=== PATIENT | male | born 1955 | race Caucasian/White ===

== ENCOUNTER 2017-08-23 13:03 | Emergency (ER) | payer BC ==
[2017-08-23] MEDS ORDERED: ONDANSETRON 4 MG/2 ML VIAL ONE (13:27)
[2017-08-23] MEDS ORDERED: NA CHLORIDE 0.9% 1,000 ML ONE (13:27)
[2017-08-23 13:49] LABS: Absolute Lymphocytes (CBC) 1.3 K/uL (0.7-4.9); Absolute Monocytes 0.4 K/uL (0.1-1.3); Absolute Neutrophil 9.6 K/uL (1.8-8.0); Basophils % 0.7 % (0-1.3); Eosinophils % 0.1 % (0-4.4); Hematocrit 39.8 % (39.6-49.0); Lymphocytes % 11.3 % (15.3-44.8); MCH 28.7 pg (27.0-35.0); MCV 86.4 fL (80-100); MPV 9.1 fL (7.6-11.3); Monocytes % 3.6 % (3.3-12.3); RBC Red Blood Cell Count 4.61 M/uL (4.33-5.43)
[2017-08-23 14:12] LABS: Bicarbonate 25 mEq/L (21-31); Glucose Level 143 mg/dL (65-120); Lipase 14 U/L (22-51); Potassium 3.9 mEq/L (3.6-5.0); Sodium Level 133 mEq/L (135-145)
[2017-08-23 14:18] LABS: ALT/SGPT 22 IU/L (10-60); AST/SGOT 20 IU/L (10-42); Albumin 4.1 g/dL (3.2-5.5); Alkaline Phosphatase 107 IU/L (42-121); BUN Blood Urea Nitrogen 12 mg/dL (6-20); Bilirubin Direct 0.1 mg/dL (0-0.2); Bilirubin Total 0.7 mg/dL (0.3-1.2); Protein, Total 7.7 g/dL (6.0-8.3)
--- NOTE | 2017-08-23 15:18 | RAD REPORT ---
EXAM DESCRIPTION: CT - Abdomen Pelvis W Contrast - 08/23/2017 2:51 pm CLINICAL HISTORY: Abdominal pain with vomiting COMPARISON: 2015 TECHNIQUE: Computed axial tomography of the abdomen pelvis was obtained. 100 cc Isovue-300 was admin istered intravenously. Oral contrast was not requested which limits evaluation of bowel. All CT scans are performed using dose optimization technique as appropriate and may include automated exposure control or mA/KV adjustment according to patient size. FINDINGS: The liver, spleen, pancreas, adrenal and kidneys appear unremarkable. There is no evidence of diverticulitis. The appendix is normal. The prostate gland is markedly enlarged. 4 centimeter area of narrowing involves the transverse colon. A gallstone is present. The gallbladder wall is not thickened. Spondylosis involves lumbar spine resulting in spinal stenosis. A small hiatal hernia is present IMPRESSION: 4 centimeter area of narrowing involving the transverse colon may be secondary to incomp lete distention or a mass. Colonoscopy is recommended. Marked enlargement of the prostate gland.
--- NOTE | 2017-08-23 15:44 | EDPHYS ---
Physician Documentation [facility] Name: Mahin Alonzo Age: 62 yrs Sex: Male : 1955 Arrival Date: 08/23/2017 Time: 13:04 Bed 30 Private MD: ED Physician Brian Momin HPI: 08/23 14:00 This 62 yrs old Male presents to ER via Ambulatory with complaints of pm1 Vomiting. 14:00 The patient presents to the emergency department with nausea, vomiting, 3 times since pm1 the onset of symptoms. Onset: The symptoms/episode began/occurred Two hours prior to arrival. Possible causes: sick contacts, by co-worker(s). The symptoms are aggravated by food , The symptoms are alleviated by nothing. Associated signs and symptoms: Pertinent negatives: abdominal pain, diarrhea, dysuria, fever. The patient has not recently seen a physician. Patient with co-worker exposure who was having vomiting and diarrhea this week. Historical: - Allergies: 13:23 Sulfa (Sulfonamide Antibiotics); tl3 - Home Meds: 13:23 tramadol 50 mg Oral tab [Active]; omeprazole 20 mg Oral cpDR 1 cap once daily [Active]; tl3 Coreg CR 80 mg oral CM24 [Active]; Chinyere Chewable Aspirin 81 mg oral chew 1 tab once daily [Active]; doxazosin oral 20 mg oral once daily [Active]; simvastatin 20 mg Oral tab [Active]; valsartan 320 mg oral tab [Active]; clonidine HCl 0.1 mg Oral tab 1 tab as needed [Active]; - PMHx: 13:23 Hypertension; Hyperlipidemia; Gastric Reflux; tl3 - PSHx: 13:23 COLON RESECTION FOR DIVERTICULITIS; tl3 - Immunization history:: Adult Immunizations up to date. ROS: 14:00 Constitutional: Negative for fever, chills, and weight loss, Eyes: Negative for injury, pm1 pain, redness, and discharge, ENT: Negative for injury, pain, and discharge, Neck: Negative for injury, pain, and swelling, Cardiovascular: Negative for chest pain, palpitations, and edema, Respiratory: Negative for shortness of breath, cough, wheezing, and pleuritic chest pain. 14:00 Back: Negative for injury and pain, : Negative for injury, bleeding, discharge, and swelling, MS/Extremity: Negative for injury and deformity, Skin: Negative for injury, rash, and discoloration, Neuro: Negative for headache, weakness, numbness, tingling, and seizure. 14:00 Abdomen/GI: Positive for nausea and vomiting, abdominal cramps, Negative for abdominal pain, diarrhea. Exam: 14:00 Constitutional: This is a well developed, well nourished patient who is awake, alert, pm1 and in no acute distress. Head/Face: Normocephalic, atraumatic. Eyes: Pupils equal round and reactive to light, extra-ocular motions intact. Lids and lashes normal. Conjunctiva and sclera are non-icteric and not injected. Cornea within normal limits. Periorbital areas with no swelling, redness, or edema. ENT: Nares patent. No nasal discharge, no septal abnormalities noted. Tympanic membranes are normal and external auditory canals are clear. Oropharynx with no redness, swelling, or masses, exudates, or evidence of obstruction, uvula midline. Mucous membranes moist. Neck: Trachea midline, no thyromegaly or masses palpated, and no cervical lymphadenopathy. Supple, full range of motion without nuchal rigidity, or vertebral point tenderness. No Meningismus. Chest/axilla: Normal chest wall appearance and motion. Nontender with no deformity. No lesions are appreciated. Cardiovascular: Regular rate and rhythm with a normal S1 and S2. No gallops, murmurs, or rubs. No pulse deficits. Respiratory: Lungs have equal breath sounds bilaterally, clear to auscultation and percussion. No rales, rhonchi or wheezes noted. No increased work of breathing, no retractions or nasal flaring. Abdomen/GI: Soft, non-tender, with normal bowel sounds. No distension or tympany. No guarding or rebound. No evidence of tenderness throughout. Back: No spinal tenderness. No costovertebral tenderness. Full range of motion. Skin: Warm, dry with normal turgor. Normal color with no rashes, no lesions, and no evidence of cellulitis. MS/ Extremity: Pulses equal, no cyanosis. Neurovascular intact. Full, normal range of motion. Vital Signs: 13:13 BP 178 / 99; Pulse 70; Resp 20 S; Temp 98.2(TE); Pulse Ox 98% on R/A; aa5 14:20 BP 154 / 90; Pulse 98; Resp 16; Pulse Ox 100% on R/A; tl3 15:49 BP 159 / 88; Pulse 87; Resp 18; Pulse Ox 100% on R/A; tl3 MDM: 13:14 Patient medically screened. pm1 15:39 Data reviewed: vital signs. Data interpreted: Pulse oximetry: on room air is 98 %. pm1 Interpretation: normal. Counseling: I had a detailed discussion with the patient and/or guardian regarding: the historical points, exam findings, and any diagnostic results supporting the discharge/admit diagnosis, lab results, radiology results, the need for outpatient follow up, for definitive care, a senior financial consultant, Colonscopy, to return to the emergency department if symptoms worsen or persist or if there are any questions or concerns that arise at home. 15:39 ED course: patient without any nausea or vomiting in the emergency department. Patient pm1 happy with care and ready to go home. Patient offered additional pain medication if possibility for nausea and vomiting from tramadol is present. Patient refused Tylenol #3 and reports that he will just take ibuprofen as needed for pain. . 08/23 13:23 Order name: Basic Metabolic Panel; Complete Time: 14:20 pm1 08/23 13:23 Order name: CBC with Diff; Complete Time: 14:11 pm1 08/23 13:23 Order name: Hepatic Function; Complete Time: 14:20 pm1 08/23 13:23 Order name: Lipase; Complete Time: 14:20 pm1 08/23 13:45 Order name: CT Abd/Pelvis - W/Contrast: IV contrast only; Complete Time: 15:29 pm1 08/23 13:23 Order name: IV Saline Lock; Complete Time: 13:43 pm1 08/23 13:23 Order name: Labs collected and sent; Complete Time: 13:43 pm1 08/23 13:23 Order name: Urine Dipstick-Ancillary (obtain specimen); Complete Time: 15:47 pm1 Administered Medications: 13:42 Drug: Zofran 4 mg Route: IVP; Infused Over: 3 mins; Site: left antecubital; tl3 14:20 Follow up: Response: No adverse reaction; Nausea is decreased tl3 13:42 Drug: NS 0.9% 1000 ml Route: IV; Rate: 1000 ml; Site: left antecubital; Delivery: tl3 Primary tubing; 14:40 Follow up: IV Status: Infusion continued; IV Intake: 1000ml tl3 Disposition: 18:11 Co-signature as Attending Physician, Brian Momin MD. rn Disposition: 08/23/17 15:43 Discharged to Home. Impression: Nausea and vomiting. - Condition is Stable. - Discharge Instructions: Nausea and Vomiting, Viral Gastroenteritis. - Prescriptions for Zofran ODT 4 mg Oral tablet,disintegrating - place 1 tablet by TRANSLINGUAL route every 8 hours As needed; 10 tablet. - Medication Reconciliation Form, Thank You Letter form. - Follow up: Emergency Department; When: As needed; Reason: Worsening of condition. Follow up: Russell Baig MD; When: 2 - 3 days; Reason: Recheck today's complaints, Continuance of care, Re-evaluation by your physician, colonscopy. - Problem is new. - Symptoms have improved. Signatures: Dispatcher [employer] EDMS Brian Momin MD MD rn Speedy Oneil, PEST MANAGEMENT SUPERVISOR PEST MANAGEMENT SUPERVISOR pm1 Mary Gustafson RN RN tl3 Corrections: (The following items were deleted from the chart) 16:17 15:43 08/23/2017 15:43 Discharged to Home. Impression: Nausea and vomiting. Condition tl3 is Stable. Forms are Medication Reconciliation Form, Thank You Letter, Antibiotic Education, Prescription Opioid Use. Follow up: Emergency Department; When: As needed; Reason: Worsening of condition. Follow up: Russell Baig; When: 2 - 3 days; Reason: Recheck today's complaints, Continuance of care, Re-evaluation by your physician, colonscopy. Problem is new. Symptoms have improved. pm1
--- NOTE | 2017-08-23 15:44 | ER ---
Nurse's Notes [facility] Name: Mahin Alonzo Age: 62 yrs Sex: Male : 1955 Arrival Date: 08/23/2017 Time: 13:04 Bed 30 Private MD: Diagnosis: Nausea and vomiting Presentation: 08/23 13:12 Presenting complaint: Patient states: "I've been vomiting all day". Pt denies abd pain. aa5 Pt states "I just took my first dose of tramadol last night for my broken foot". Pt appears pale. 13:12 Transition of care: patient was not received from another setting of care. Onset of aa5 symptoms was August 23, 2017. Initial Sepsis Screen: Does the patient meet any 2 criteria? No. Patient's initial sepsis screen is negative. Does the patient have a suspected source of infection? No. Patient's initial sepsis screen is negative. Care prior to arrival: None. 13:12 Method Of Arrival: Ambulatory aa5 13:12 Acuity: SAMEER 3 aa5 Historical: - Allergies: 13:23 Sulfa (Sulfonamide Antibiotics); tl3 - Home Meds: 13:23 tramadol 50 mg Oral tab [Active]; omeprazole 20 mg Oral cpDR 1 cap once daily [Active]; tl3 Coreg CR 80 mg oral CM24 [Active]; Chinyere Chewable Aspirin 81 mg oral chew 1 tab once daily [Active]; doxazosin oral 20 mg oral once daily [Active]; simvastatin 20 mg Oral tab [Active]; valsartan 320 mg oral tab [Active]; clonidine HCl 0.1 mg Oral tab 1 tab as needed [Active]; - PMHx: 13:23 Hypertension; Hyperlipidemia; Gastric Reflux; tl3 - PSHx: 13:23 COLON RESECTION FOR DIVERTICULITIS; tl3 - Immunization history:: Adult Immunizations up to date. Screenin:23 Abuse screen: Denies threats or abuse. Nutritional screening: No deficits noted. tl3 Tuberculosis screening: No symptoms or risk factors identified. Fall Risk None identified. Assessment: 13:16 General: Appears uncomfortable, well groomed, well developed, well nourished, Behavior tl3 is calm, cooperative, appropriate for age. Pain: Denies pain. Neuro: No deficits noted. Level of Consciousness is awake, alert, obeys commands, Oriented to person, place, time, situation, Appropriate for age. Cardiovascular: Heart tones S1 S2 present Capillary refill < 3 seconds. Respiratory: Airway is patent Trachea midline Respiratory effort is even, unlabored, Respiratory pattern is regular, symmetrical, Breath sounds are clear bilaterally. GI: Abdomen is round Reports nausea, vomiting. : No signs and/or symptoms were reported regarding the genitourinary system. EENT: No signs and/or symptoms were reported regarding the EENT system. Derm: No signs and/or symptoms reported regarding the dermatologic system. Musculoskeletal: No signs and/or symptoms reported regarding the musculoskeletal system. 13:16 Reassessment: pt started taking Tramadol yesterday for a fx left foot, had second dose tl3 today on empty stomach and got nauseated and started vomting. 14:20 Reassessment: Patient appears in no apparent distress at this time. Patient and/or tl3 family updated on plan of care and expected duration. Pain level reassessed. Patient is alert, oriented x 3, equal unlabored respirations, skin warm/dry/pink. pt feeling better was able to sleep through IV fluid admin. Vital Signs: 13:13 BP 178 / 99; Pulse 70; Resp 20 S; Temp 98.2(TE); Pulse Ox 98% on R/A; aa5 14:20 BP 154 / 90; Pulse 98; Resp 16; Pulse Ox 100% on R/A; tl3 15:49 BP 159 / 88; Pulse 87; Resp 18; Pulse Ox 100% on R/A; tl3 ED Course: 13:04 Patient arrived in ED. sb2 13:13 Speedy Oneil NP is PHCP. pm1 13:13 Arm band placed on Patient placed in an exam room, on a stretcher. aa5 13:14 Brian Momin MD is Attending Physician. pm1 13:15 Triage completed. aa5 13:15 Mary Gustafson, STEPHANIE is Primary Nurse. tl3 13:23 Resting quietly. Awaiting ED provider evaluation. tl3 13:23 Patient has correct armband on for positive identification. Bed in low position. Call tl3 light in reach. Side rails up X 1. Adult w/ patient. Warm blanket given. 13:23 No provider procedures requiring assistance completed. tl3 14:[address] via wheelchair. cw1 14:52 CT Abd/Pelvis - W/Contrast: IV contrast only In Process Unspecified. EDMS 14:52 CT completed. Patient tolerated procedure well. Patient moved back from CT. bq 15:43 Russell Baig MD is Referral Physician. pm1 Administered Medications: 13:42 Drug: Zofran 4 mg Route: IVP; Infused Over: 3 mins; Site: left antecubital; tl3 14:20 Follow up: Response: No adverse reaction; Nausea is decreased tl3 13:42 Drug: NS 0.9% 1000 ml Route: IV; Rate: 1000 ml; Site: left antecubital; Delivery: tl3 Primary tubing; 14:40 Follow up: IV Status: Infusion continued; IV Intake: 1000ml tl3 Intake: 14:40 IV: 1000ml; Total: 1000ml. tl3 Outcome: 15:43 Discharge ordered by . pm1 16:17 Patient left the ED. tl3 Signatures: Dispatcher [employer] EDMS Estrella Marquez bq Debra Sheffield, RN RN aa5 Viki Pizano cw1 Speedy Oneil, JOHNNY METAL SPRAYER PROTECTIVE COATING pm1 Erin Young sb2 Mary Gustafson, RN RN tl3
[2017-08-23 16:21] VITALS: TEMP 98.2
[2017-08-23 16:22] VITALS: O2SAT 100
[2017-08-23 16:23] VITALS: BP 159/88
== END 2017-08-23 16:17 | disposition home or self-care (01) ==
LOC: ER 13:03
DX: R11.2 Nausea with vomiting, unspecified (principal); I10 Essential (primary) hypertension; E78.5 Hyperlipidemia, unspecified; K21.9 Gastro-esophageal reflux disease without esophagitis; Z88.2 Allergy status to sulfonamides; Z79.4 Long term (current) use of insulin
CPT/HCPCS: 36415; 74177; 80048; 80076; 83690; 85025; 96361; 96374; 99284; J2405; J7030; Q9967

== ENCOUNTER 2017-08-29 20:53 | Emergency (ER) | payer BC ==
--- OUTSIDE RECORDS SUMMARY | 2017-08-29 20:54 | XMS REPORT ---
:1955 Author [facility] Address [address] [place] [address] Care Team Providers Name Role Phone Unavailable Unavailable Unavailable Problems This patient has no known problems. Allergies, Adverse Reactions, Alerts This patient has no known allergies or adverse reactions. Medications This patient has no known medications. Results Test Description Test Time Test Comments Text Results Atomic Results Result Comments MRI PELVIS W/WO (PROSTATE) CLINICAL INDICATION: R97.20 Elevated prostate specific antigenMODALITY: Siemens Skyra 3.0 Rebeca MRITECHNIQUE: T2 sagittal and axial, T1 axial, T1 coronal fat sat, STIR, diffusion and dynamic contrast enhanced imaging are performed. Quantitative analysis is performed with 3JamaCAD. IV contrast is administered, 15.0 ml Multihance Dynamic post-contrast imaging with 3JamaCAD quantitative analysis are accomplished.[id number] MR DynaCADIMPRESSION:No suspicious focal lesions are targeted. No evidence of extra prostatic malignancy. Moderate BPH.PI-RADS 1: Most probably benign.FINDINGS:COMPARISON: NoneNormal regional marrow signal is observed. No lytic or blastic osseous metastatic lesions.No common iliac, internal iliac, external iliac, inguinal or suspicious blessing-prostatic lymph nodes.Regional bowel appears unremarkable. No mural or intraluminal bladder mass. Anterior abdominal wall and pelvic floor are unremarkable. No evidence of ascites.Estimated prostate volume is 91.71 ml. No suspicious focal lesions are targeted. Moderate hypertrophy of the transitional zone is noted, consistent with BPH.Seminal vesicles exhibit normal signal intensity. Neurovascular bundles are symmetric in appearance without definite tumor involvement. The prostate capsule is smooth in contour.
--- OUTSIDE RECORDS SUMMARY | 2017-08-29 20:54 | XMS REPORT | Clinical Summary ---
:1955 Author Organization [facility] Address [address] [place] [address] Care Team Providers Name Role Phone Marvin Velasquez MD Primary Care Provider Allergies Active Allergy Reactions Severity Noted Date Comments Sulfur GI Intolerance 04/25/2016 Nausea/ Vomiting Current Medications Prescription Sig. Disp. Refills Start Date End Date Status DEXILANT 60 mg capsule Take 60 mg by 4 02/26/2016 Active mouth daily. COREG CR 80 mg 24 hr Take 80 mg by 5 04/07/2016 Active capsule mouth daily. doxazosin (CARDURA) 4 Take 4 mg by 1 04/09/2016 Active MG tablet mouth daily. simvastatin (ZOCOR) 20 Take 20 mg by 1 04/09/2016 Active MG tablet mouth daily. Take 1/2 tablet by mouth daily valsartan (DIOVAN) 320 Take 320 mg by 6 04/01/2016 Active MG tablet mouth daily. aspirin (ECOTRIN) 81 MG Take 81 mg by Active enteric coated tablet mouth daily. clonIDINE (CATAPRES) Take 0.1 mg by Active 0.1 MG tablet mouth daily as needed for high blood pressure. vardenafil (STAXYN) 10 Take 10 mg by Active mg mouth daily as tablet,disintegrating needed. esomeprazole (NexIUM) Take 1 capsule 30 capsule 11 04/25/2016 04/25/2017 40 MG (40 mg total) capsuleIndications: by mouth daily Gastroesophageal reflux before disease without breakfast. esophagitis Active Problems Not on file Encounters Date Type Specialty Care Team Description 07/17/2017 Hospital Encounter Radiology Wilmar Young Renal calculus 07/17/2017 Transcribe Orders Access Wilmar Young Renal calculus ( Primary MD Dx) after 08/28/2016 Family History Medical History Relation Name Comments No Known Problems Brother No Known Problems Father No Known Problems Maternal Aunt No Known Problems Maternal Grandfather No Known Problems Maternal Grandmother No Known Problems Maternal Uncle No Known Problems Mother No Known Problems Paternal Aunt No Known Problems Paternal Grandfather No Known Problems Paternal Grandmother No Known Problems Paternal Uncle No Known Problems Sister Relation Name Status Comments Brother Father Maternal Aunt Maternal Grandfather Maternal Grandmother Maternal Uncle Mother Paternal Aunt Paternal Grandfather Paternal Grandmother Paternal Uncle Sister Social History Tobacco Use Types Packs/Day Years Used Date Never Smoker Alcohol Use Drinks/Week oz/Week Comments Yes socially Sex Assigned at Date Recorded Not on file Last Filed Vital Signs Not on file Plan of Treatment Health Maintenance Due Date Last Done Comments COLONOSCOPY 08/08/2003 SHINGRIX VACCINE (#1) 08/08/2003 ZOSTER VACCINE 2013 INFLUENZA VACCINE 11/19/2017 Results XR Kub Kidney Ureter Bladder (07/17/2017 1:09 PM) Specimen Performing Laboratory [facility] [address] [place] [address] Narrative EXAMINATION:XR KUB KIDNEY URETER BLADDER CLINICAL HISTORY:N20.0 Calculus of kidney, n20.0 COMPARISON:July 11, 2016 IMPRESSION: Surgical clips are noted in the left mid abdomen.There is nonspecific pattern of gas and stool throughout the colon.There is no sniffing of small bowel gas. There is no definite renal calculus. [facility]-[id number] Procedure Note Interface, Radiology Results Incoming - 07/17/2017 1:39 PM CDT EXAMINATION: XR KUB KIDNEY URETER BLADDER CLINICAL HISTORY: N20.0 Calculus of kidney, n20.0 COMPARISON: July 11, 2016 IMPRESSION: Surgical clips are noted in the left mid abdomen. There is nonspecific pattern of gas and stool throughout the colon. There is no sniffing of small bowel gas. There is no definite renal calculus. [facility]-[id number] after 08/28/2016 Insurance Payer Benefit Plan / Group Subscriber ID Type Phone Address BCBS BCBS CHOICE PPO/[employer] PPO xxxxxxxxxxxx PPO [phone] [phone]
[2017-08-29 21:19] LABS: Urine Blood NEGATIVE (NEG); Urine Glucose NEGATIVE (NEG); Urine Protein NEGATIVE (NEG); Urine Specific Gravity 1.015 (1.005-1.030)
[2017-08-29 21:52] LABS: Absolute Lymphocytes (CBC) 1.9 K/uL (0.7-4.9); Absolute Monocytes 1.6 K/uL (0.1-1.3); Absolute Neutrophil 13.6 K/uL (1.8-8.0); Basophils % 0.2 % (0-1.3); Eosinophils % 0.5 % (0-4.4); Lymphocytes % 11.2 % (15.3-44.8); MCH 29.3 pg (27.0-35.0); MCV 86.3 fL (80-100); Monocytes % 9.4 % (3.3-12.3)
[2017-08-29 21:57] LABS: Bicarbonate 25 mEq/L (21-31); Glucose Level 115 mg/dL (65-120); Lipase 16 U/L (22-51); Sodium Level 135 mEq/L (135-145)
[2017-08-29 22:03] LABS: ALT/SGPT 21 IU/L (10-60); AST/SGOT 18 IU/L (10-42); Albumin 4.2 g/dL (3.2-5.5); Alkaline Phosphatase 96 IU/L (42-121); Amylase Level 40 U/L (28-100); BUN Blood Urea Nitrogen 9 mg/dL (6-20); Bilirubin Direct 0.1 mg/dL (0-0.2); Bilirubin Total 0.7 mg/dL (0.3-1.2); Protein, Total 7.8 g/dL (6.0-8.3)
[2017-08-29 22:07] LABS: Urine Amorphous Sediment 1+ /HPF (NONE SEEN); Urine Bacteria <20 /HPF (NONE SEEN); Urine Culture Reflex Order NOT NEEDED; Urine RBC <5 /HPF (NONE SEEN)
--- NOTE | 2017-08-30 | ER ---
Nurse's Notes [facility] Name: Mahin Alonzo Age: 62 yrs Sex: Male : 1955 Arrival Date: 08/29/2017 Time: 20:55 Bed 16 Private MD: Nini Velasquez C Diagnosis: Cholelithiasis Presentation: 08/29 20:59 Presenting complaint: Patient states: Right flank pain for 2 days. Denies blood in aj urine. Transition of care: patient was not received from another setting of care. Onset of symptoms was August 27, 2017. Care prior to arrival: None. 20:59 Method Of Arrival: Ambulatory aj 20:59 Acuity: SAMEER 3 aj 21:12 Initial Sepsis Screen: Does the patient meet any 2 criteria? No. Patient's initial ao sepsis screen is negative. Does the patient have a suspected source of infection? Yes:. Triage Assessment: 21:01 General: Appears in no apparent distress. comfortable, Behavior is calm, cooperative, aj appropriate for age. Pain: Complains of pain in anterior aspect of right lateral abdomen and posterior aspect of right lateral abdomen Pain currently is 6 out of 10 on a pain scale. Neuro: Level of Consciousness is awake, alert, obeys commands, Oriented to person, place, time, situation. Respiratory: Airway is patent Respiratory effort is even, unlabored, Respiratory pattern is regular, symmetrical. : Reports pain in right flank(s). Derm: Skin is intact, is healthy with good turgor, Skin is pink, warm \T\ dry. normal. Historical: - Allergies: 21:01 Sulfa (Sulfonamide Antibiotics); aj - Home Meds: 21:01 Chinyere Chewable Aspirin 81 mg Oral chew 1 tab once daily [Active]; clonidine HCl 0.1 mg aj Oral tab 1 tab as needed [Active]; Coreg CR 80 mg Oral CM24 [Active]; doxazosin 20 mg Oral once daily [Active]; omeprazole 20 mg Oral cpDR 1 cap once daily [Active]; simvastatin 20 mg Oral tab [Active]; tramadol 50 mg Oral tab [Active]; valsartan 320 mg Oral tab [Active]; - PMHx: 21:01 Gastric Reflux; Hyperlipidemia; Hypertension; aj - PSHx: 21:01 COLON RESECTION FOR DIVERTICULITIS; aj - Immunization history:: Adult Immunizations up to date. - Social history:: Smoking status: Patient/guardian denies using tobacco. Screenin:12 Abuse screen: Denies threats or abuse. Denies injuries from another. Nutritional ao screening: No deficits noted. Tuberculosis screening: No symptoms or risk factors identified. Fall Risk None identified. Assessment: 21:09 General: Appears in no apparent distress. uncomfortable, Behavior is calm, cooperative, ao appropriate for age. Pain: Complains of pain in anterior aspect of right lateral abdomen and posterior aspect of right lateral abdomen Pain currently is 8 out of 10 on a pain scale. Quality of pain is described as burning, sharp, Pain began 1 day ago. Neuro: Level of Consciousness is awake, alert, obeys commands, Oriented to person, place, time, situation, Appropriate for age Moves all extremities. Speech is normal, Facial symmetry appears normal, Pupils are PERRLA. Cardiovascular: Heart tones S1 S2 Capillary refill < 3 seconds Patient's skin is warm and dry. Respiratory: Airway is patent Respiratory effort is even, unlabored, Respiratory pattern is regular, symmetrical, Breath sounds are clear bilaterally. GI: Abdomen is distended, Bowel sounds present X 4 quads. : No signs and/or symptoms were reported regarding the genitourinary system. EENT: No signs and/or symptoms were reported regarding the EENT system. Derm: Skin is intact, Skin is dry, Skin is normal, Skin temperature is warm. Musculoskeletal: No signs and/or symptoms reported regarding the musculoskeletal system. Amputation of Capillary refill < 3 seconds. 22:12 Reassessment: Patient appears in no apparent distress at this time. Patient and/or ao family updated on plan of care and expected duration. Pain level reassessed. Patient is alert, oriented x 3, equal unlabored respirations, skin warm/dry/pink. Waiting on lab results. 23:48 Reassessment: Patient appears in no apparent distress at this time. Patient and/or ao family updated on plan of care and expected duration. Pain level reassessed. Patient is alert, oriented x 3, equal unlabored respirations, skin warm/dry/pink. 0512 00:14 Reassessment: Received an verbal order to medicate patient with NS 500 Bolus and ao Toradol 30 IVP. Patient to be discharge after the saline is done. 00:56 Reassessment: Patient DC home ambulatory. Patient understand the POC and to follow up ao with Dr Velasquez. Patient denies pain at this time. Vital Signs: 08/29 21:01 BP 148 / 89; Pulse 91; Resp 16; Temp 98.9; Pulse Ox 96% on R/A; Weight 95.25 kg; Height aj 5 ft. 10 in. (177.80 cm); Pain 6/10; 22:12 BP 137 / 104; Pulse 81; Resp 16; Pulse Ox 98% on R/A; Pain 5/10; ao 23:48 BP 119 / 63; Pulse 74; Resp 18; Pulse Ox 96% on R/A; ao 21:01 Body Mass Index 30.13 (95.25 kg, 177.80 cm) ED Course: 20:55 Patient arrived in ED. am2 20:55 Nini Velasquez MD is Private Physician. am2 21:00 Triage completed. aj 21:01 Arm band placed on left wrist. Patient placed in an exam room. aj 21:03 Yoshi Pritchett MD is Attending Physician. tw4 21:05 Dex Perales RN is Primary Nurse. ao 21:14 Patient has correct armband on for positive identification. Pulse ox on. NIBP on. ao 21:38 Inserted saline lock: 20 gauge in left antecubital area, using aseptic technique. Blood eb collected. 22:[address] via stretcher. eh 22:29 CT completed. Patient tolerated procedure well. eh 22:31 Patient moved back from CT. eh 22:33 Abdomen In Process Unspecified. EDMS 23:58 Nini Velasquez MD is Referral Physician. tw4 08/30 00:55 No provider procedures requiring assistance completed. IV discontinued, intact, ao bleeding controlled, No redness/swelling at site. Pressure dressing applied. Administered Medications: 00:13 Drug: TORadol 30 mg Route: IVP; Site: left antecubital; ao 00:57 Follow up: Response: No adverse reaction; Pain is decreased ao 00:14 Drug: NS 0.9% 500 ml Route: IV; Rate: bolus; Site: left antecubital; ao 00:57 Follow up: IV Status: Completed infusion; IV Intake: 500ml ao Intake: 00:57 IV: 500ml; Total: 500ml. ao Outcome: 08/29 23:59 Discharge ordered by . tw4 08/30 00:55 Discharged to home ambulatory. ao Condition: stable Discharge instructions given to patient, Instructed on discharge instructions, follow up and referral plans. Demonstrated understanding of instructions, follow-up care, medications, Prescriptions given X 1. 00:56 Patient left the ED. ao Signatures: Dispatcher [employer] Catherine Kaur, RN RN Estuardo Del Valle Alex, RN RN ao Moreno, Amanda am2 Yoshi Pritchett MD MD tw4 [place]
--- NOTE | 2017-08-30 | EDPHYS ---
Physician Documentation [facility] Name: Mahin Alonzo Age: 62 yrs Sex: Male : 1955 Arrival Date: 08/29/2017 Time: 20:55 Bed 16 Private MD: Nini Velasquez C ED Physician Yoshi Pritchett Historical: - Allergies: 08/29 21:01 Sulfa (Sulfonamide Antibiotics); aj - Home Meds: 21:01 Chinyere Chewable Aspirin 81 mg Oral chew 1 tab once daily [Active]; clonidine HCl 0.1 mg aj Oral tab 1 tab as needed [Active]; Coreg CR 80 mg Oral CM24 [Active]; doxazosin 20 mg Oral once daily [Active]; omeprazole 20 mg Oral cpDR 1 cap once daily [Active]; simvastatin 20 mg Oral tab [Active]; tramadol 50 mg Oral tab [Active]; valsartan 320 mg Oral tab [Active]; - PMHx: 21:01 Gastric Reflux; Hyperlipidemia; Hypertension; aj - PSHx: 21:01 COLON RESECTION FOR DIVERTICULITIS; aj - Immunization history:: Adult Immunizations up to date. - Social history:: Smoking status: Patient/guardian denies using tobacco. Vital Signs: 21:01 BP 148 / 89; Pulse 91; Resp 16; Temp 98.9; Pulse Ox 96% on R/A; Weight 95.25 kg; Height aj 5 ft. 10 in. (177.80 cm); Pain 6/10; 22:12 BP 137 / 104; Pulse 81; Resp 16; Pulse Ox 98% on R/A; Pain 5/10; ao 23:48 BP 119 / 63; Pulse 74; Resp 18; Pulse Ox 96% on R/A; ao 21:01 Body Mass Index 30.13 (95.25 kg, 177.80 cm) MDM: 21:03 Patient medically screened. 08/29 21:13 Order name: Urine Dipstick--Ancillary (enter results); Complete Time: 22:13 08/29 23:58 Interpretation: Within normal limits. 08/29 21:20 Order name: Amylase, Serum; Complete Time: 22:13 rust 08/29 23:58 Interpretation: Within normal limits. 08/29 21:20 Order name: Basic Metabolic Panel; Complete Time: 22:13 rust 08/29 21:20 Order name: CBC with Diff; Complete Time: 22:13 tw4 08/29 23:57 Interpretation: Normal except: HGB 12.9; HCT 38.0; WBC 17.3; MOIRA% 78.7; LYM% 11.2; NEUT tw4 A 13.6; MNA 1.6. 08/29 21:20 Order name: Hepatic Function; Complete Time: 22:13 tw4 08/29 23:57 Interpretation: Normal except: GLOB 3.6. 08/29 21:20 Order name: Lipase; Complete Time: 22:13 tw4 08/29 21:20 Order name: Urine Microscopic Only; Complete Time: 22:13 tw4 08/29 21:20 Order name: IV Saline Lock; Complete Time: 21:39 tw4 08/29 21:20 Order name: Labs collected and sent; Complete Time: 21:39 tw4 08/29 22:22 Order name: Abdomen EDMS 08/29 21:20 Order name: Urine Dipstick-Ancillary (obtain specimen); Complete Time: 21:39 tw4 Administered Medications: 08/30 00:13 Drug: TORadol 30 mg Route: IVP; Site: left antecubital; ao 00:57 Follow up: Response: No adverse reaction; Pain is decreased ao 00:14 Drug: NS 0.9% 500 ml Route: IV; Rate: bolus; Site: left antecubital; ao 00:57 Follow up: IV Status: Completed infusion; IV Intake: 500ml ao Disposition: 08/29/17 23:59 Discharged to Home. Impression: Cholelithiasis. - Condition is Stable. - Discharge Instructions: Biliary Colic, Cholelithiasis, [id number]. - Prescriptions for Tylenol- Codeine #3 300-30 mg Oral Tablet - take 2 tablet by ORAL route every 6 hours As needed; 6 tablet. - Medication Reconciliation Form, Thank You Letter, Antibiotic Education, Prescription Opioid Use form. - Follow up: Nini Velasquez MD; When: As needed; Reason: Recheck today's complaints, Continuance of care, Re-evaluation by your physician. Follow up: Private Physician; When: As needed; Reason: Recheck today's complaints, Continuance of care, Re-evaluation by your physician. - Problem is new. - Symptoms have improved. Addendum: 09/09/2017 06:42 Addendum: Pt is a 62 year male that sates he has had right flank pain for 2 days. Pt t w4 states that pain is moderate. Pt denies nausea, vomiting fever or chills. Addendum: ROS" Gen: negative for fever, chills HEENT: negative for sore throat,ear pain CV: negative for chest pain, palpitations Resp: negative for SOB,MULLINS Abdomen: negative for nausea vomiting Ext: negative for edema, tenderness Back positive for flank pain : negative for dysuria, hematuria. Addendum: PE: General Well developed well nourished male in NAD HEENT:PERRLA, EOMI CV: RRR, nl S1, S2 Resp: CTAB, no resp rate no resp distress Abdomen: mild RUQ tenderness, nl BS Back: mild right CVA tenderness Ext: no edema, nontender Neuro: A\\T\\Ox 3 CN grossly intact, moves all four. Addendum: Ed course: CT negative for nephrolithiasis however reveal cholelithiasis with no evidence of cholecystitis . Signatures: Dispatcher [employer] [facility] Catherine Cummings RN RN aj Ortiz, Alex, RN RN ao Wadley, Terrence, MD MD tw4 Corrections: (The following items were deleted from the chart) 08/29 21:58 21:20 Creatinine for Radiology+C.LAB.BRZ ordered. [facility] 22:22 21:28 Abdomen Pelvis W/Wo Con+CT.RAD.BRZ ordered. [facility] 08/30 00:56 08/29 23:59 08/29/2017 23:59 Discharged to Home. Impression: Cholelithiasis. Condition ao is Stable. Forms are Medication Reconciliation Form, Thank You Letter, Antibiotic Education, Prescription Opioid Use. Follow up: A Velasquez; When: As needed; Reason: Recheck today's complaints, Continuance of care, Re-evaluation by your physician. Follow up: Private Physician; When: As needed; Reason: Recheck today's complaints, Continuance of care, Re-evaluation by your physician. Problem is new. Symptoms have improved. tw4
[2017-08-30] MEDS ORDERED: KETOROLAC 30 MG/ML INJ ONE (00:10)
[2017-08-30] MEDS ORDERED: NA CHLORIDE 0.9% 500 ML ONE (00:10)
[2017-08-30 01:00] VITALS: TEMP 98.9
[2017-08-30 01:02] VITALS: BP 119/63; O2SAT 96
--- NOTE | 2017-08-30 09:27 | RAD REPORT ---
EXAM DESCRIPTION: CT - Abdomen Pelvis W Contrast - 08/30/2017 6:47 am CLINICAL HISTORY: Abdominal pain, right flank pain, history of gastric reflux, history of partial co mariel resection for diverticulitis A preliminary written report was provided at the time of the study, and the report was reviewed prio r to final dictation. COMPARISON: CT study August 23, 2017; September 2015, March 2015 TECHNIQUE: Biphasic, helical CT imaging of the abdomen and pelvis was performed following 100 ml non -ionic IV contrast. No oral contrast administered. All CT scans are performed using dose optimization technique as appropriate and may include automated exposure control or mA/KV adjustment according to patient size. FINDINGS: No suspicious findings in the lung bases. The liver, spleen, and pancreas show no suspicious findings. A small 5 mm gallstone is identified. Ac tive gallbladder process is not suspected. No biliary tree dilatation. Symmetric renal function is seen with no hydronephrosis or suspicious renal mass. No pyelonephritis o r acute renal parenchymal process. Urinary bladder is mostly contracted. No bladder calculus seen. Prostate gland is enlarged overall. There is prominent lobulated contour at the prostate bladder inte rface. Pattern is more prominent than prior imaging. This may be a benign prostatic hypertrophy ; how ever, bladder base mass or prostate malignancy cannot be excluded on CT criteria. Correlation can be made with clinical symptoms, PSA values and any UA abnormalities. No dilated bowel loops or bowel wall thickening. No appendicitis findings. No free air, free fluid or inflammatory stranding. No hernia, mass or bulky lymphadenopathy. No adrenal abnormality. No suspicious bony findings. IMPRESSION: Single 5 mm gallstone is identified. Active gallbladder disease is doubtful. No appendicitis or acute GI process identifiable. No pyelonephritis, hydronephrosis or other acute kidney or ureter finding. Prostate gland is enlarged with a significant lobulated contour at the prostate-bladder interface. Th is is more prominent than seen on prior imaging. This may simply be benign prostatic hypertrophy ; h owever, prostate malignancy or bladder base mass cannot be excluded on CT criteria. Correlation is ne eded with any relevant urinary symptoms, abnormal PSA values or abnormal UA finding.
== END 2017-08-30 00:56 | disposition home or self-care (01) ==
LOC: ER 20:53
DX: K80.20 Calculus of gallbladder without cholecystitis without obstruction (principal); I10 Essential (primary) hypertension; E78.5 Hyperlipidemia, unspecified; Z79.82 Long term (current) use of aspirin; Z88.2 Allergy status to sulfonamides
CPT/HCPCS: 36415; 74177; 80048; 80076; 81003; 81015; 82150; 83690; 85025; 96361; 96374; 99284; Q9967

== ENCOUNTER 2017-09-01 17:39 | Inpatient (IN) | payer BC ==
--- OUTSIDE RECORDS SUMMARY | 2017-09-01 18:05 | XMS REPORT | Clinical Summary ---
:1955 Author Organization [facility] Address [address] [place] [address] Care Team Providers Name Role Phone Marvin [...] Renal calculus ( Primary MD Dx) after 08/31/2016 Family History Medical History Relation Name Comments [...] 1:09 PM) Specimen Performing Laboratory [facility] [address] [place] [address] Narrative EXAMINATION:XR KUB KIDNEY URETER BLADDER CLINICAL HISTORY:N20.0 Calculus of kidney, n20.0 COMPARISON:July 11, 2016 IMPRESSION: Surgical clips are noted in the left mid abdomen.There is nonspecific pattern of gas and stool throughout the colon.There is no sniffing of small bowel gas. There is no definite renal calculus. [facility]-[id number] Procedure Note Interface, Radiology Results Incoming - 07/17/2017 1:39 PM CDT EXAMINATION: XR KUB KIDNEY URETER BLADDER CLINICAL HISTORY: N20.0 Calculus of kidney, n20.0 COMPARISON: July 11, 2016 IMPRESSION: Surgical clips are noted in the left mid abdomen. There is nonspecific pattern of gas and stool throughout the colon. There is no sniffing of small bowel gas. There is no definite renal calculus. [facility]-[id number] after 08/31/2016 Insurance Payer Benefit Plan / Group Subscriber ID Type Phone Address BCBS BCBS CHOICE PPO/FEDERAL EMPL PPO xxxxxxxxxxxx PPO [id number] [address]
--- OUTSIDE RECORDS SUMMARY | 2017-09-01 18:05 | XMS REPORT ---
:1955 [facility] Address [address] [place] [address] Care Team Providers Name Role Phone Unavailable [...] are performed. Quantitative analysis is performed with WoofRadaraCAD. IV contrast is administered, 15.0 ml Multihance Dynamic post-contrast imaging with WoofRadaraCAD quantitative analysis are accomplished.[id number] MR DynaCADIMPRESSION:No suspicious focal lesions are targeted. [...]
[2017-09-01 18:27] VITALS: BMI 30.6
[2017-09-01] MEDS ORDERED: Morphine 2 MG/2 ML SYR IV PRN (18:45)
[2017-09-01] MEDS ORDERED: ACETAMINOPHEN 500 MG TAB PO PRN (18:45)
[2017-09-01 19:37] LABS: Absolute Lymphocytes (CBC) 2.6 K/uL (0.7-4.9); Absolute Monocytes 0.9 K/uL (0.1-1.3); Absolute Neutrophil 6.1 K/uL (1.8-8.0); Basophils % 0.5 % (0-1.3); Eosinophils % 1.8 % (0-4.4); Hematocrit 37.2 % (39.6-49.0); Lymphocytes % 26.1 % (15.3-44.8); MCH 29.4 pg (27.0-35.0); MCV 85.9 fL (80-100); MPV 8.9 fL (7.6-11.3); Monocytes % 9.5 % (3.3-12.3); RBC Red Blood Cell Count 4.33 M/uL (4.33-5.43)
[2017-09-01 19:42] LABS: Protime INR 1.15
[2017-09-01 19:46] LABS: Bicarbonate 26 mEq/L (21-31); Glucose Level 99 mg/dL (65-120); Lipase 26 U/L (22-51); Potassium 4.1 mEq/L (3.6-5.0); Sodium Level 135 mEq/L (135-145)
[2017-09-01 19:49] LABS: ALT/SGPT 18 IU/L (10-60); AST/SGOT 16 IU/L (10-42); Albumin 4.1 g/dL (3.2-5.5); Alkaline Phosphatase 82 IU/L (42-121); Amylase Level 44 U/L (28-100); BUN Blood Urea Nitrogen 16 mg/dL (6-20); Bilirubin Total 0.3 mg/dL (0.3-1.2); Protein, Total 7.6 g/dL (6.0-8.3)
[2017-09-01 20:18] LABS: Urine Appearance CLEAR; Urine Bilirubin NEGATIVE (NEG); Urine Blood NEGATIVE (NEG); Urine Color YELLOW; Urine Glucose NEGATIVE (NEG); Urine Protein NEGATIVE (NEG); Urine Specific Gravity 1.025 (1.005-1.030); Urine Urobilinogen 0.2 mg/dL (0.2-1.0)
--- NOTE | 2017-09-01 20:24 | RAD REPORT ---
EXAM DESCRIPTION: RAD - Chest Pa And Lat (2 Views) - 09/01/2017 8:07 pm CLINICAL HISTORY: Abdominal pain, cholecystitis COMPARISON: March 2015 TECHNIQUE: PA and lateral views of the chest were obtained. FINDINGS: The lungs are clear. Lung markings are similar to the comparison. Heart size is normal an d central vasculature is within normal limits. No pleural effusion or pneumothorax seen. No acute b tk finding noted. No aortic abnormality. IMPRESSION: No acute cardiopulmonary process. No significant change from comparison.
[2017-09-01 20:31] LABS: Urine Bacteria NONE SEEN /HPF (NONE SEEN); Urine Culture Reflex Order REFLEXED; Urine RBC <5 /HPF (NONE SEEN)
[2017-09-01 20:38] LABS: Thyroid Stimulating Hormone 1.84 uIU/mL (0.34-5.60)
[2017-09-01] MEDS: D5 0.9 NS 1,000 ML IV SCH (20:45)
[2017-09-01] MEDS: Levofloxacin500mg IV 500 MG/100 ML BAG IV SCH (20:46)
[2017-09-01] MEDS: METRONIDAZOLE 500mg IVPB 500 MG/100 ML BAG IV SCH (20:46)
[2017-09-02] MEDS: METRONIDAZOLE 500mg IVPB 500 MG/100 ML BAG IV SCH ×3 (00:11→17:01)
--- NOTE | 2017-09-02 07:41 | RAD REPORT ---
EXAM DESCRIPTION: US - Abdomen Exam Limited - 09/02/2017 7:09 am CLINICAL HISTORY: Right upper quadrant pain COMPARISON: CT study August 29 FINDINGS: A single 9 millimeter echogenic focus is present mobile within the lumen of the gallbladde r. No posterior acoustic shadowing. Earlier CT study showed a hyperdense focus within the gallbladder . This is probably an nonshadowing gallstone. Mobile tumefactive sludge would be possible as well. No other stones or significant sludge quantity. There is no wall thickening or pericholecystic fluid. No common duct stone or biliary tree dilatation identified. Liver shows a coarsened, increased echogenicity that is probably borderline fatty infiltration. No fo aditi liver lesions seen. IMPRESSION: Approximately 9 millimeter nonshadowing gallstone versus tumefactive sludge. No other ga llbladder or biliary tree finding. Liver is borderline fatty infiltrated. The prostate -urinary bladder finding detailed on the August 29 CT study is not imaged as part of this e xamination.
--- NOTE | 2017-09-02 08:13 | HP ---
Date of Admission: 09/01/2017 Chief Complaint: Abdominal pain. History Of Present Illness: This is a 62-year-old male patient, who started to have right upper quad rant abdominal pain about 6 days ago, and the pain has been more or less continuous. It gets worse w ith coughing or certain movement. The patient says that last week on Friday which is 08/29/2017, his pain got worse, so he came to the emergency room. After he was evaluated in the emergency room, ER physician released him to go home with pain medication which is Tylenol with codeine, and the patient did not get this prescription filled. His says that his pain ever since he visited emergency room o n Friday has gotten somewhat better, but he still has significant amount of pain which is more or les s continuous. No fever, no chills. No nausea, vomiting. No constipation, no diarrhea. He came int o office today after he was evaluated, and after I reviewed hospital record. The patient was admitte d to the hospital. I was never contacted from the ER and ER physician never offered patient to be ad mitted to the hospital. When he came through emergency room, his workup included CAT scan, routine l abs, and I have reviewed all those results, and I am concerned about the patient having acute cholecy stitis with gallstones. Allergies: TO SULFA. Medications: Aspirin 81 mg daily, clonidine 0.1 mg every day as needed, Coreg CR 80 mg p.o. daily, D iovan 320 mg p.o. daily, doxazosin 4 mg takes half a tablet 2 times a day, Prilosec 20 mg daily, simv astatin 20 mg daily, Staxyn 10 mg daily. Review of Systems: GI: As mentioned above. Musculoskeletal: Left foot stress fracture which was diagnosed recently and he is under care of Dr. Johnston for that. All other systems reviewed and negative. Family History: Significant for hypertension, mother had hypertension; otherwise, family history not pertinent. Social History: Negative for smoking or alcohol use. Past Surgical History: Significant for prostate biopsy for high PSA in 2010 and partial colectomy fo r diverticulitis and back surgery in 1983. Past Medical History: Significant for hypertension, benign prostatic hypertrophy, NIDDM, hyperlipide jayesh, and diverticulosis. Physical Examination: Vital Signs: When I saw him at office today vital signs included weight 213 pounds, height 70 inches , blood pressure 145/80, pulse 65, respiratory rate 16, temperature 97.9. General: Awake, alert, oriented, not in distress. HEENT: Head atraumatic, normocephalic. Conjunctivae nonerythematous. Sclerae white. Mouth, no thr ush or edema noted. Ears/Nose, no mass, lesion, discharge noted. Neck: Supple. No JVD, lymph nodes, bruit, thyromegaly noted. Lungs: Bilateral good equal air entry. Clear to auscultation. No rhonchi. No rales. Heart: Normal heart sounds, no murmur or gallop. Abdomen: The patient has tenderness of right upper quadrant below the rib cage with positive Ruiz' s sign. Abdomen not distended. Bowel sounds normoactive. No rebound tenderness. No guarding, no r igidity. Extremities: No leg edema. No calf tenderness. Skin: No rash, ulcer, cellulitis. Lymphatics: No lymph node enlargement in neck, supraclavicular, infraclavicular region. Neuro: No focal neurological deficit. Chest: Unremarkable. External Genitalia: Deferred. Rectal: Deferred. Laboratory Data: Today white count 9.8, hemoglobin 12.7, platelets 259. INR 1.15. Sodium 135, pota ssium 4.1, chloride 103, bicarb 26, BUN 16, creatinine 0.65, glucose 99. Liver function tests unrema rkable. Procalcitonin less than 0.05. TSH 1.84. Urinalysis negative. On 08/29/2017, when the prosper ent came in white count was 17.3, otherwise, CBC chemistry was unremarkable. CAT scan of the abdomen done on 08/29/2017 shows 5 mm gallstone evidence of enlarged prostate. Impression: 1.Gallstone with acute cholecystitis. 2.Hypertension. 3.Hyperlipidemia. 4.Diverticulosis. 5.Noninsulin-dependent diabetes mellitus. 6.Benign prostatic hypertrophy. Plan: Admit the patient to hospital for further evaluation and management of this problem. The prosper ent is appropriate for inpatient and is expected to spend 2 midnights in hospital. We will go ahead and consult general surgeon, Dr. Larios, will get abdominal ultrasound done which will be limited r ight upper quadrant abdominal ultrasound and we will keep patient n.p.o., pain medications will be gi link, antibiotics will be given per order. Home medications will be continued per order, and I will s ee him tomorrow for followup. Details and plan of treatment discussed with the patient and I also ca lled Dr. Larios and details were discussed with him. JANINE/DONTRELL Voice ID: [id number]
[2017-09-02] MEDS: D5 0.9 NS 1,000 ML IV SCH ×2 (08:20→21:40)
[2017-09-02] MEDS: CARVEDILOL 6.25 MG TAB PO SCH ×2 (08:45→21:00)
[2017-09-02] MEDS ORDERED: Ringers Lactate 1,000 ML IV ONE (10:48)
[2017-09-02] MEDS ORDERED: MIDAZOLAM HCL 2 MG/2 ML INJ ONE (11:37)
[2017-09-02] MEDS ORDERED: FENTANYL CITR 250 MCG/5 ML ONE (11:37)
[2017-09-02] MEDS ORDERED: ROCURONIUM 50 MG/5 ML VIAL IV ONE (11:37)
[2017-09-02] MEDS ORDERED: PROPOFOL 200 MG/20 ML VIAL IV ONE (11:37)
[2017-09-02] MEDS ORDERED: GLYCOPYRROLATE 0.2 MG/ML SYR ONE ×2 (12:11→12:16)
[2017-09-02] MEDS ORDERED: KETOROLAC 30 MG/ML INJ ONE (12:17)
[2017-09-02] MEDS ORDERED: NEOSTIGMINE 1 MG/ML -5 ML SYRINGE ONE (12:17)
[2017-09-02] MEDS ORDERED: EPHEDRINE SULF 50 MG/5 ML SYR ONE (12:18)
[2017-09-02] MEDS ORDERED: NS 0.9% VIAL 10 ML ONE (12:19)
[2017-09-02] MEDS ORDERED: Mastisol Adhesive Liq ONE (12:32)
--- NOTE | 2017-09-02 12:34 | P.BOP ---
Preoperative diagnosis: Acute cholecystitis, symptomatic cholelithiasis, hx of colon resection Postoperative diagnosis: same, obesity, diabetes Primary procedure: Laparoscopic cholecystectomy Track Repairer: Eli Dean (Emili) Estimated blood loss: <10cc Specimen: gb Findings: as above Anesthesia: General Complications: None Transferred to: Recovery Room Condition: Good
[2017-09-02] MEDS ORDERED: MEPERIDINE HCL 50 MG/ML AMP ONE (13:01)
[2017-09-02] MEDS: ONDANSETRON 4 MG/2 ML VIAL IV PRN (13:35)
--- NOTE | 2017-09-02 14:22 | CON ---
Date of Consultation: 09/01/2017 Chief Complaint: Right upper quadrant pain. History Of Present Illness: This is the case of a 62-year-old patient, who comes to us with epigastr ic right upper quadrant pain radiating to the back, associated with nausea and vomiting. his started about 6 days ago. He said, he went into the ER but he was discharged home from the ER and sent to [facility] primary doctor. When the primary doctor noticed his symptoms today, he decided to just bring him and started admitting to the hospital, started workup including blood work, and then a surgical consu lt was obtained for evaluation of gallbladder disease. He denies any dysuria, hematuria, hematochezi a, or melena. Denies any recent travelling out of the country. Denies any family member sick at [facility]. Past Medical History: Hypertension, BPH, cam-vpaehbl-etlxoohrz diabetes, and hyperlipidemia. Family History: Hypertension. Social History: He does not smoke. He does not drink alcohol. Medications: Include aspirin, Coreg, and Prilosec. Past Surgical History: Include partial colectomy for diverticular disease, unknown details. Review of Systems: Constitutional: Denies any fever. Gastrointestinal: As above. Respiratory: Denies any shortness of breath. Genitourinary: As above. Physical Examination: General: The patient is awake and alert. HEENT: Pupils are equal and reactive, anicteric. Neck: Supple. Chest: Clear. Abdomen: Epigastric right upper quadrant tenderness with Ruiz sign positive. Rectal: Deferred. Extremities: Good capillary refill. Laboratory Data: Blood work still pending at the time of consult. An ultrasound was done on 09/03/19. Ultrasound shows gallstones. Assessment: This is a 62-year-old patient with 1-week epigastric right upper quadrant pain not getti ng better, with Ruiz sign positive, with gallstones. The patient clinically is manifesting as acut e cholecystitis with symptomatic cholelithiasis. Dr. Velasquez just consulted me for laparoscopic, possib le open cholecystectomy, which was explained to the patient with benefits, alternatives, and risks, w hich include, but are not limited to infection, bleeding, damage to adjacent structures, anesthesia c omplication, choledocholithiasis, bile leak, pancreatitis, CO, and even . He also understands t his may not relieve any symptoms. He might need more than one surgical intervention. He has previou s colon resection, the details of that are unknown to us that this may encounter some scar tissue ove r the area, placement of trocars may have to be changed. He is aware of that situation and how that this can change the outcome of the surgery. He understood, signed consent. ELEAZAR Voice ID: [id number] Report ID: [id number]
[2017-09-02] MEDS: HYDROCODONE/APAP 7.5/325 MG TAB PO PRN ×3 (15:08→23:12)
--- NOTE | 2017-09-02 15:28 | EKG ---
Test Date: 2017-09-02 Test Time: 09:39:52 Resident Physician In Radiology: TIESHA MEASUREMENT RESULTS: Intervals: Rate: 61 AR: 180 QRSD: 92 QT: 408 QTc: 410 Corcoran: P: 54 AR: 180 QRS: 22 T: 54 INTERPRETIVE STATEMENTS: Normal sinus rhythm Normal ECG Compared to ECG 04/07/2015 00:28:32 No significant changes Electronically Signed On 09-02-17 15:25:51 CDT by Justin Hubbard
[2017-09-02] MEDS: Levofloxacin500mg IV 500 MG/100 ML BAG IV SCH (21:53)
[2017-09-02] MEDS: VALSARTAN 160 MG TAB PO SCH (21:53)
[2017-09-02] MEDS: ATORVASTATIN 10 MG TAB PO SCH (21:53)
--- NOTE | 2017-09-03 01:04 | PN ---
Date of Progress Note: 09/02/2017 Subjective: The patient was seen this morning for followup. No new complaints or problems reported by patient. Lying in bed, not in distress. Abdominal pain remains unchanged. Objective: Vital Signs: Reviewed. HEENT: Examination unremarkable. Lungs: Clear to auscultation. Heart: Heart sounds normal. Abdomen: Soft, bowel sounds normal. No guarding, rigidity, distention. Presence of right upper mickey drant tenderness, remains unchanged. No rebound tenderness. Extremities: No leg edema. Imaging: The abdominal ultrasound results reviewed. Impression: 1.Gallstone with acute cholecystitis. 2.Hypertension. Plan: Carvedilol 6.25 mg p.o. b.i.d. was ordered. We will continue cholesterol medication per order . The patient had laparoscopic cholecystectomy by Dr. Larios today. Details were discussed with neftali brown, and we will continue current antibiotics. I will see him tomorrow morning for followup and we wi ll possibly discharge him to go home tomorrow. JANINE/MODL Voice ID: [id number] Report ID: [id number]
--- NOTE | 2017-09-03 01:29 | OP ---
Date of Procedure: 09/02/2017 Surgeon: Toby Larios MD Direct Care Provider: Eli Dean. Preoperative Diagnoses: Acute cholecystitis, symptomatic cholelithiasis, history of colon resection for diverticulitis, morbid obesity, and diabetes. Postoperative Diagnoses: Acute cholecystitis, symptomatic cholelithiasis, history of colon resection for diverticulitis, morbid obesity, and diabetes. Procedure: Laparoscopic cholecystectomy. Estimated Blood Loss: Less than 10 cc. Specimen: Gallbladder. Finding: As above. Anesthesia: General plus local. Indications: This is a case of a male, who comes to us with abdominal pain. It has been like that f or the last week, not improving, diagnosed with acute cholecystitis and symptomatic cholelithiasis. Admitted to the hospital and a surgical consult was obtained. The patient fully explained the benefi ts, alternatives, and risks of laparoscopic, possible open cholecystectomy, which include, but not li mited to infection, bleeding, damage to adjacent structures, anesthesia complication, choledocholithi asis, bile leak, pancreatitis, SD, and even . He also understands this may not relieve the symp toms, he might need more than one surgical intervention. He understood and signed a consent. Description Of Procedure: The patient was brought to the operating room, placed in supine position. Anesthesia was done without complication. Abdominal area was prepped and draped in a sterile fashio n. The patient has open colon resection before, so we expect some adhesions in the lower abdomen. S o, we put an incision in the supraumbilical region. Incision was carried down to fascia, which was o pened under direct vision. Peritoneum was encountered, opened under direct vision. Vicryl #[address] aced inside the fascia. Byron trocar was carefully introduced and pneumoperitoneum was obtained. A fter that, I placed 3 more trocars, 5 mm each one of them, in the right upper quadrant under direct v isualization. We put a grasper in the fundus of the gallbladder, another grasper in the infundibulum , retracted the gallbladder in the inferolateral fashion exposing the triangle of Calot obtaining cri tical view. Cystic duct and cystic artery were clearly isolated free circumferentially and a connect ion between those and the gallbladder were clearly identified. I proceeded to ligate those by using at least 3 clips proximal, 1 clip distal, ligation in the middle. Same was done with the cystic elv ry. A small little branch of the cystic artery was also ligated. The hepatic arteries and common bi le duct were protected at all times. Gallbladder was removed from liver using Bovie cauterizer and r emoved from abdominal cavity using an EndoCatch through the umbilical incision. The area was inspect ed once again. No bile leak, no bleeding. At that moment, I proceeded to remove the trocars under d irect vision, deflated pneumoperitoneum, closed the fascia with #1 Vicryl, and irrigated subcutaneous tissue, closed that with 3-0 chromic and skin approximated. Sponge count and instrument counts were correct. The patient tolerated the procedure well. The patient was sent to recovery in stable cond ition. WILLOW/DONTRELL Voice ID: [id number] Report ID: [id number]
[2017-09-03] MEDS: METRONIDAZOLE 500mg IVPB 500 MG/100 ML BAG IV SCH ×3 (01:41→16:52)
[2017-09-03] MEDS: HYDROCODONE/APAP 7.5/325 MG TAB PO PRN (04:54)
[2017-09-03] MEDS ORDERED: PANTOPRAZOLE 40MG TABLET PO ONE (07:54)
[2017-09-03] MEDS ORDERED: DOXAZOSIN 2 MG TAB PO ONE (07:55)
[2017-09-03] MEDS: CARVEDILOL 6.25 MG TAB PO SCH ×2 (08:39→21:09)
[2017-09-03] MEDS: ONDANSETRON 4 MG/2 ML VIAL IV PRN (10:51)
--- NOTE | 2017-09-03 13:40 | RAD REPORT ---
EXAM DESCRIPTION: RAD - Abdomen W Erect - 09/03/2017 1:30 pm CLINICAL HISTORY: Abdomen pain. FINDINGS: Air is present within a few nondilated loops of small bowel. Air is present within the col on. A moderate amount of stool is present within the colon. Free air is seen. The patient is status post recent abdominal surgery.
[2017-09-03] MEDS: Levofloxacin500mg IV 500 MG/100 ML BAG IV SCH (21:07)
[2017-09-03] MEDS: VALSARTAN 160 MG TAB PO SCH (21:09)
[2017-09-03] MEDS: ATORVASTATIN 10 MG TAB PO SCH (21:09)
[2017-09-03] MEDS ORDERED: NA CHLORIDE 0.9% 250 ML ONE (21:57)
[2017-09-04] MEDS: METRONIDAZOLE 500mg IVPB 500 MG/100 ML BAG IV SCH ×2 (00:24→09:37)
--- NOTE | 2017-09-04 00:56 | PN ---
Date of Progress Note: 09/03/2017 Subjective: The patient was seen this morning for followup. No new complaints or problems reported by patient. He had gallbladder surgery yesterday. This morning denied any specific complaints. Objective: Vital Signs: Reviewed. HEENT: Unremarkable. Lungs: Clear to auscultation. Heart: Heart sounds normal. Abdomen: Soft, bowel sounds normal. No guarding, rigidity. Minimum discomfort around surgical inci gualberto site. Extremities: No leg edema. Impression: 1.Gallstone with acute cholecystitis. 2.Hypertension. 3.Gastroesophageal reflux disease. Plan: The patient was having some acid reflux feeling problem this morning that started early this m orning and Protonix 40 mg p.o. x1 dose was ordered. After I saw him, Dr. Larios saw him and it was determined that the patient was stable for discharge and discharge order was written, but then while patient was waiting for his discharge he actually started to have nausea problem and nurse contacted and informed me that patient was requesting some nausea medicine to go home with and he did not eat lunch just because he was not feeling good. With that, I was concerned about possibility of ileus. So stat abdominal x-ray was done, which came back negative for ileus, but considering patient not fee ling well today, I definitely would like to keep him in hospital unless his condition improved signif icantly in evening time, then we might be able to discharge him to go home. Otherwise, it would be s afe for him to stay overnight so we can monitor him. We will have him on clear liquid diet, and I wi ll see him tomorrow. Antihypertensive medication was ordered. We will consider possible discharge olya rrow depending on his condition. JANINE/MODL Voice ID: [id number] Report ID: [id number]
[2017-09-04 01:27] VITALS: O2SAT 98
[2017-09-04] MEDS ORDERED: TAMSULOSIN 0.4 MG SR CAP PO SCH (09:00)
[2017-09-04] MEDS: CARVEDILOL 6.25 MG TAB PO SCH (09:35)
[2017-09-04 13:03] VITALS: BP 159/80; TEMP 97.9
--- NOTE | 2017-09-05 19:52 | DS ---
Date of Discharge: 09/04/2017 Disposition: Discharged to go home. Physical Examination: HEENT: Unremarkable. Lungs: Clear to auscultation. Heart: Sounds normal. Abdomen: Soft, bowel sounds normal. No guarding, rigidity, tenderness, or distention. Extremities: No leg edema. Hospital Course: A 62-year-old male patient, admitted to the hospital with abdominal pain complaint. Please see dictated H and P for more information. The patient had abdominal pain in the right uppe r quadrant and he came into the emergency room on 08/29/2017 after he was evaluated in the ER. ER ph ysician, released him to go home with pain medication. The patient had a CAT scan of abdomen done wh ich showed gallstone. When he came into my office, on basis of his history, I was concerned about th at patient was having gallstone with acute cholecystitis so after discussing with him we decided to a dmit him to the hospital. Dr. Larios from General Surgery was consulted and he agreed with this ne xt day after admission. There the patient had abdominal ultrasound done and Dr. Larios took him to Surgery. The patient had laparoscopic cholecystectomy done for this acute cholecystitis problem and postoperatively his condition was stable. Yesterday morning when I saw him, he was feeling fine but then as the day progressed he did not feel good. Had nausea problem did not eat his meal yesterday and we decided to leave him on clear liquid diet. Abdominal x-ray was done to rule out ileus and it came back unremarkable. Yesterday evening time the patient had significant urinary retention problem and bladder scan showed 800 cc of urine and Davila catheter was placed this morning. When I saw him, his Davila catheter was in place, draining yellow color urine and upon further questioning about his urinary symptoms he informed me that he does have problem with dribbling of urine and weak urinary st ream this is going on for a long time. He sees urologist Dr. Young on a regular basis and he has informed him about this. So far Dr. Young has not suggested any intervention. After I saw him th is morning, we started him on Flomax 0.4 mg p.o. daily and I did instruct him that upon discharge fro m the hospital, he should followup with Dr. Young as soon as possible for further evaluation and m anagement of this urinary problems due to benign prostatic hypertrophy. We were able to remove his F oley catheter. After removing Davila catheter he was able to void without any problem. The patient s hould continue Flomax upon discharge. Discharge Diagnoses: 1.Gallstone with acute cholecystitis. 2.Benign prostatic hypertrophy with urinary retention. 3.Hypertension. 4.Hyperlipidemia. 5.Diverticulosis. 6.Type 2 diabetes mellitus. 7.Urinary tract infection. Laboratory Data: Labs done during this hospitalization. White count 9.8, hemoglobin 12.7, platelets 259, sodium 135 potassium 4.1, chloride 103, bicarb 26, BUN 16, creatinine 0.65, glucose 99, liver f unction tests unremarkable. Lipase normal, TSH normal at 1.84. His urine culture growing E. coli, s ensitive to Levaquin. Discharge Medications And Instructions: 1.Continue all prior home medications. 2.Return to work in 1 week. 3.Use Tylenol with codeine as prescribed for pain and the patient was instructed to limit the use as much as he can. 4.Levaquin 500 mg p.o. daily and metronidazole 500 mg p.o. 3 times a day for 1 week. 5.Flomax 0.4 mg p.o. daily. 6.Follow up with urologist Dr. Young as soon as possible. 7.Follow up with Dr. Larios in 1 week and follow up at my office in 2-3 weeks. JANINE/MODL Voice ID: [id number] Report ID: [id number]
== END 2017-09-04 15:56 | disposition home or self-care (01) | DRG 418 ==
LOC: 2ND 18:03
PROVIDERS: ADMIT Internal Medicine; ATTEND Internal Medicine
PROC: 0FT44ZZ Resection of Gallbladder, Percutaneous Endoscopic Approach (ICD-10-PCS; principal; 2017-09-02 11:00)
DX: K80.00 Calculus of gallbladder with acute cholecystitis without obstruction (principal); N39.0 Urinary tract infection, site not specified; N40.1 Benign prostatic hyperplasia with lower urinary tract symptoms; R33.8 Other retention of urine; I10 Essential (primary) hypertension; E78.5 Hyperlipidemia, unspecified; K57.90 Diverticulosis of intestine, part unspecified, without perforation or abscess without bleeding; E11.9 Type 2 diabetes mellitus without complications; B96.20 Unspecified Escherichia coli [E. coli] as the cause of diseases classified elsewhere; K21.9 Gastro-esophageal reflux disease without esophagitis; E66.01 Morbid (severe) obesity due to excess calories; Z68.30 Body mass index [BMI] 30.0-30.9, adult; Z79.82 Long term (current) use of aspirin; Z88.2 Allergy status to sulfonamides
CPT/HCPCS: 36415; 71046; 74019; 76705; 80053; 81001; 82150; 83690; 83735; 84145; 84443; 85025; 85610; 85730; 87077; 87086; 87088; 87186; 88304; 88305; 93005; J2175; J2250; J2270; J2405; J2710

== ENCOUNTER 2018-11-22 09:37 | Emergency (ER) | payer BC ==
[2018-11-22] MEDS ORDERED: TRAMADOL HCL 50 MG TAB ONE (10:22)
--- NOTE | 2018-11-22 10:29 | EDPHYS ---
Physician Documentation [facility] Name: Mahin Alonzo Age: 63 yrs Sex: Male : 1955 Arrival Date: 11/22/2018 Time: 09:39 Bed 15 Private MD: Nini Velasquez C ED Physician Brian Momin HPI: 11/22 10:08 This 63 yrs old Male presents to ER via Wheelchair with complaints of Knee rn Pain - Left. 10:08 The patient presents with decreased range of motion, an injury, pain. The complaints rn affect the left knee. Onset: The symptoms/episode began/occurred just prior to arrival. Modifying factors: The symptoms are alleviated by remaining still, the symptoms are aggravated by weight bearing. Severity of symptoms: At their worst the symptoms were moderate, in the emergency department the symptoms are unchanged. The patient has experienced similar episodes in the past. Reports mowing yard and heard a pop, not able to bear weight, can bend and extend knee, has had problems with that knee in past and required cortisol shots by Dr. Johnston. . Historical: - Allergies: 09:47 Sulfa (Sulfonamide Antibiotics); sg - PMHx: 09:47 Gastric Reflux; Hyperlipidemia; Hypertension; Knee Pain; sg - PSHx: 09:47 COLON RESECTION FOR DIVERTICULITIS; sg - Immunization history:: Adult Immunizations not up to date. - Social history:: Smoking status: Patient/guardian denies using tobacco. - Ebola Screening: : Patient negative for fever greater than or equal to 101.5 degrees Fahrenheit, and additional compatible Ebola Virus Disease symptoms Patient denies exposure to infectious person Patient denies travel to an Ebola-affected area in the 21 days before illness onset No symptoms or risks identified at this time. - Family history:: not pertinent. - Hospitalizations: : No recent hospitalization is reported. ROS: 10:08 Back: Negative for injury and pain, MS/Extremity: + left knee pain and injury Neuro: rn Negative for weakness/numbness/tingling Exam: 10:08 Constitutional: This is a well developed, well nourished patient who is awake, alert, rn and in no acute distress. MS/ Extremity: Pulses equal, no cyanosis. Neurovascular intact. Able to flex and extend own knee, mild tenderness medial to patella, no focal bony tenderness or deformity, + mild swelling noted. Vital Signs: 09:55 BP 139 / 76; Pulse 80; Resp 17; Pulse Ox 98% on R/A; Pain 6/10; sg 09:55 Temp 98.4; sg MDM: 09:42 Patient medically screened. rn 10:14 Differential diagnosis: closed fracture, tendonitis, internal derangement of knee, rn meniscal injury. Data reviewed: vital signs, nurses notes, radiologic studies, plain films, and as a result, I will discharge patient. Test interpretation: by ED physician or midlevel provider: plain radiologic studies, Xray left knee without acute fracture or dislocation. Counseling: I had a detailed discussion with the patient and/or guardian regarding: the historical points, exam findings, and any diagnostic results supporting the discharge/admit diagnosis, radiology results, the need for outpatient follow up, to return to the emergency department if symptoms worsen or persist or if there are any questions or concerns that arise at home. Response to treatment: the patient's symptoms have mildly improved after treatment, and as a result, I will discharge patient. 10:27 Special discussion: I discussed with the patient/guardian in detail that at this point rn there is no indication for admission to the hospital. It is understood, however, that if the symptoms persist or worsen the patient needs to return immediately for re-evaluation. 11/22 09:54 Order name: XRAY Knee LEFT 2 view rn Administered Medications: 10:24 Drug: UltRAM 50 mg Route: PO; sg Disposition: 11/22/18 10:28 Discharged to Home. Impression: Internal derangement of knee. - Condition is Stable. - Discharge Instructions: Knee Immobilizer, Knee Sprain. - Prescriptions for Ultram 50 mg Oral Tablet - take 1 tablet by ORAL route every 6 hours As needed; 20 tablet. Cyclobenzaprine 10 mg Oral Tablet - take 1 tablet by ORAL route every 8 hours As needed; 20 tablet. - Work release form, Medication Reconciliation Form, Thank You Letter, Antibiotic Education, Prescription Opioid Use form. - Follow up: Minh Michele; When: 5 - 6 days; Reason: Recheck today's complaints, Re-evaluation by your physician. - Problem is new. - Symptoms have improved. Signatures: Dispatcher [employer] EDMS Moshe Lau RN RN sg Brian Momin MD MD multimedia journalist: (The following items were deleted from the chart) 10:54 10:28 11/22/2018 10:28 Discharged to Home. Impression: Internal derangement of knee. sg Condition is Stable. Discharge Instructions: Knee Immobilizer, Knee Sprain. Prescriptions for Ultram 50 mg Oral Tablet - take 1 tablet by ORAL route every 6 hours As needed; 20 tablet, Cyclobenzaprine 10 mg Oral Tablet - take 1 tablet by ORAL route every 8 hours As needed; 20 tablet. and Forms are Medication Reconciliation Form, Thank You Letter, Antibiotic Education, Prescription Opioid Use. Follow up: Minh Michele; When: 5 - 6 days; Reason: Recheck today's complaints, Re-evaluation by your physician. Problem is new. Symptoms have improved. rn
--- NOTE | 2018-11-22 10:29 | ER ---
Nurse's Notes [facility] Name: Mahin Alonzo Age: 63 yrs Sex: Male : 1955 Arrival Date: 11/22/2018 Time: 09:39 Bed 15 Private MD: Nini Velasquez C Diagnosis: Internal derangement of knee Presentation: 11/22 09:44 Presenting complaint: Patient states: I was walking with a self propelled crt sg when i felt a popping sensation in my knee. Denies fall trauma or injury to the knee at this time, pt reports pain with ambulation. Transition of care: patient was not received from another setting of care. Onset of symptoms was November 22, 2018. Risk Assessment: Do you want to hurt yourself or someone else? Patient reports no desire to harm self or others. Initial Sepsis Screen: Does the patient meet any 2 criteria? No. Patient's initial sepsis screen is negative. Does the patient have a suspected source of infection? No. Patient's initial sepsis screen is negative. Care prior to arrival: None. 09:44 Method Of Arrival: Wheelchair sg 09:44 Acuity: SAMEER 4 sg Historical: - Allergies: 09:47 Sulfa (Sulfonamide Antibiotics); sg - PMHx: 09:47 Gastric Reflux; Hyperlipidemia; Hypertension; Knee Pain; sg - PSHx: 09:47 COLON RESECTION FOR DIVERTICULITIS; sg - Immunization history:: Adult Immunizations not up to date. - Social history:: Smoking status: Patient/guardian denies using tobacco. - Ebola Screening: : Patient negative for fever greater than or equal to 101.5 degrees Fahrenheit, and additional compatible Ebola Virus Disease symptoms Patient denies exposure to infectious person Patient denies travel to an Ebola-affected area in the 21 days before illness onset No symptoms or risks identified at this time. - Family history:: not pertinent. - Hospitalizations: : No recent hospitalization is reported. Screenin:00 Abuse screen: Denies threats or abuse. Denies injuries from another. Nutritional sg screening: No deficits noted. Tuberculosis screening: No symptoms or risk factors identified. Never had TB. Fall Risk None identified. Assessment: 10:00 General: Appears in no apparent distress. well groomed, well developed, well nourished, sg Behavior is calm, cooperative, appropriate for age. Pain: Complains of pain in left knee Quality of pain is described as aching. Neuro: Level of Consciousness is awake, alert, obeys commands, Oriented to person, place, time, situation. Cardiovascular: Capillary refill is brisk in bilateral fingers Patient's skin is warm and dry. Chest pain is denied. Respiratory: Airway is patent Respiratory effort is even, unlabored, Respiratory pattern is regular, symmetrical. GI: Abdomen is round non-distended. : No signs and/or symptoms were reported regarding the genitourinary system. EENT: No signs and/or symptoms were reported regarding the EENT system. Derm: Skin is pink, warm \T\ dry. Musculoskeletal: Circulation, motion, and sensation intact. Range of motion: intact in all extremities, Swelling absent Reports pain in left knee. Vital Signs: 09:55 BP 139 / 76; Pulse 80; Resp 17; Pulse Ox 98% on R/A; Pain 6/10; sg 09:55 Temp 98.4; sg ED Course: 09:39 Patient arrived in ED. rg4 09:39 Nini Velasquez MD is Private Physician. rg4 09:42 Brian Momin MD is Attending Physician. rn 09:43 Moshe Lau RN is Primary Nurse. sg 09:45 Triage completed. sg 09:45 Arm band placed on. sg 10:10 XRAY Knee LEFT 2 view In Process Unspecified. EDMS 10:19 No provider procedures requiring assistance completed. Patient did not have IV access sg during this emergency room visit. 10:28 Minh Michele MD is Referral Physician. rn Administered Medications: 10:24 Drug: UltRAM 50 mg Route: PO; sg Outcome: 10:28 Discharge ordered by . rn 10:54 Patient left the ED. sg Signatures: Dispatcher [employer] EDMS Moshe Lau RN RN sg Nieto, Roman, MD MD rn Garcia, Rubi rg4
[2018-11-22 11:03] VITALS: BP 139/76; TEMP 98.4; O2SAT 98
--- OUTSIDE RECORDS SUMMARY | 2018-11-22 12:51 | XMS REPORT | Clinical Summary ---
:1955 Author Organization [facility] Address [address] [place] [address] Care Team Providers Name Role Phone Marvin Velasquez MD Primary Care Provider Allergies Active Allergy Reactions Severity Noted Date Comments Sulfur GI Intolerance 04/25/2016 Nausea/ Vomiting Medications Medication Sig Dispensed Refills Start Date End Date Status DEXILANT [...] (ECOTRIN) 81 MG Take 81 mg by 0 Active enteric coated tablet mouth daily. clonIDINE (CATAPRES) Take 0.1 mg by 0 Active 0.1 MG tablet mouth daily as needed for high blood pressure. vardenafil (STAXYN) 10 Take 10 mg by 0 Active mg mouth daily as tablet,disintegrating needed. Active Problems Not on file Encounters Date Type Specialty Care Team Description 08/04/2018 Hospital Encounter Radiology Wilmar Young MD Pain 08/04/2018 Transcribe Orders Access Wilmar Young MD Pain (Primary Dx) after 11/21/2017 Family History Medical History Relation Name Comments [...] Assigned at Date Recorded Not on file Job Start Date Occupation Industry Not on file Not on file Not on file Travel History Travel Start Travel End No recent travel history available. Last Filed Vital Signs Not on file Plan of Treatment Health Maintenance Due Date Last Done Comments COLONOSCOPY SCREENING 08/08/2003 SHINGLES VACCINES (#1) 08/08/2003 65+ PNEUMOCOCCAL VACCINE (2 of 2 - PPSV23) 2018 04/21/2013 INFLUENZA VACCINE 11/19/2018 Procedures Procedure Name Priority Date/Time Associated Diagnosis Comments XR KUB KIDNEY Routine 08/04/2018 9:51 AM Pain Results for this URETER BLADDER CDT procedure are in the results section. after 11/21/2017 Results XR Kub Kidney Ureter Bladder (08/04/2018 9:51 AM CDT) Specimen Narrative Performed At EXAMINATION:XR KUB KIDNEY URETER BLADDER [facility] CLINICAL HISTORY:R52 Painunspecified, Abd painunspecified COMPARISON:July 17, 2017 IMPRESSION: Surgical clips are noted in the left mid abdomen.Is nonspecific pattern of gas and stool throughout the colon.No significant small bowel gas identified.No definite renal calculi. [facility]-[id number] Procedure Note Hm Interface, Radiology Results Incoming - 08/04/2018 10:01 AM CDT EXAMINATION: XR KUB KIDNEY URETER BLADDER CLINICAL HISTORY: R52 Pain unspecified, Abd pain unspecified COMPARISON: July 17, 2017 IMPRESSION: Surgical clips are noted in the left mid abdomen. Is nonspecific pattern of gas and stool throughout the colon. No significant small bowel gas identified. No definite renal calculi. [facility]-[id number] Performing Organization Address City/State/Zipcode Phone Number [facility] [address] [place] [address] after 11/21/2017 Advance Directives Patient has advance care planning documents on file. For more information, please contact:Chris Gibson[address] [place] [address]
--- OUTSIDE RECORDS SUMMARY | 2018-11-22 12:51 | XMS REPORT ---
:1955 [facility] Address [address] [place] [address] Care Team Providers Name Role Phone Unavailable [...] are performed. Quantitative analysis is performed with One CodexaCAD. IV contrast is administered, 15.0 ml Multihance Dynamic post-contrast imaging with One CodexaCAD quantitative analysis are accomplished.[id number] MR DynaCADIMPRESSION:No suspicious focal lesions are targeted. [...]
--- NOTE | 2018-11-22 15:19 | RAD REPORT ---
EXAM DESCRIPTION: RAD - Knee Left 2 View - 11/22/2018 12:43 pm CLINICAL HISTORY: Left knee pain, mechanism of injury unknown Technical malfunction is precluded immediate review of images. Final report was delayed. COMPARISON: None. FINDINGS: No fracture, dislocation or periosteal reaction.No joint effusion seen. No joint space ceferino rowing. Soft tissues anterior to the knee appear slightly edematous with baseline for the patient unk nown. No foreign body. IMPRESSION: Negative left knee. Clinical concerns for internal derangement or occult bony injury could be further assessed with MR im aging.
== END 2018-11-22 10:54 | disposition home or self-care (01) ==
LOC: ER 09:37
DX: M23.92 Unspecified internal derangement of left knee (principal); Z88.2 Allergy status to sulfonamides
CPT/HCPCS: 99283

== ENCOUNTER 2019-01-21 00:58 | Emergency (ER) | payer SELFPAY ==
[2019-01-21] MEDS ORDERED: FENTANYL CITR 100 MCG/2 ML ONE (03:08)
[2019-01-21] MEDS ORDERED: DIAZEPAM 10 MG/2 ML INJ SYRINGE ONE (03:09)
[2019-01-21] MEDS ORDERED: NA CHLORIDE 0.9% 1,000 ML ONE (03:09)
[2019-01-21 03:24] LABS: Absolute Lymphocytes (CBC) 1.7 K/uL (0.7-4.9); Basophils % 0.4 % (0-1.3); Lymphocytes % 13.9 % (15.3-44.8); MPV 9.8 fL (7.6-11.3); RBC Red Blood Cell Count 4.03 M/uL (4.33-5.43)
[2019-01-21 03:31] LABS: BUN Blood Urea Nitrogen 12 mg/dL (7-18); Bicarbonate 26 mmol/L (21-32); Glucose Level 106 mg/dL (74-106); Potassium 3.9 mmol/L (3.5-5.1); Sodium Level 139 mmol/L (136-145)
--- NOTE | 2019-01-21 03:44 | EDPHYS ---
Physician Documentation [facility] Name: Mahin Alonzo Age: 63 yrs Sex: Male : 1955 Arrival Date: 01/21/2019 Time: 01:01 Bed 15 Private MD: ED Physician Nikita Gold HPI: 01/21 03:11 This 63 yrs old Male presents to ER via Ambulatory with complaints of snw Headache 2nd to neck pain. 03:11 The patient complains of pain to the right occipital area and right base of the skull. snw The patient describes the headache as aching, a pressure. Onset: The symptoms/episode began/occurred gradually, 3 day(s) ago, and became worse just prior to arrival. Associated signs and symptoms: Pertinent negatives: dizziness, fever, nausea, Photophobia. Severity of symptoms: At its worst the pain was moderate, right neck pain severe. Headache History: Denies prior headaches. the symptoms are aggravated by neck pain. The patient has not experienced similar symptoms in the past. It is unknown whether or not the patient has recently seen a physician. Historical: - Allergies: 01:10 Sulfa (Sulfonamide Antibiotics); jb4 01:10 drugs w/ sulfer; jb4 - Home Meds: 01:10 valsartan 320 mg Oral tab [Active]; simvastatin 20 mg Oral tab [Active]; clonidine HCl jb4 0.1 mg Oral tab 1 tab as needed [Active]; doxazosin 4 mg oral tab 1 tab once daily [Active]; Chinyere Chewable Aspirin 81 mg Oral chew 1 tab once daily [Active]; omeprazole 20 mg Oral cpDR 1 cap once daily [Active]; Coreg CR 80 mg Oral CM24 [Active]; - PMHx: 01:10 Gastric Reflux; knee pain; Hyperlipidemia; Hypertension; jb4 - PSHx: 01:10 COLON RESECTION FOR DIVERTICULITIS; jb4 - Immunization history:: Adult Immunizations up to date. - Social history:: Smoking status: Patient/guardian denies using tobacco, Patient uses alcohol, only on a social basis. - Ebola Screening: : No symptoms or risks identified at this time. ROS: 03:09 Constitutional: Negative for fever, chills, and weight loss, Eyes: Negative for injury, snw pain, redness, and discharge, ENT: Negative for injury, pain, and discharge, Cardiovascular: Negative for chest pain, palpitations, and edema, Respiratory: Negative for shortness of breath, cough, wheezing, and pleuritic chest pain, Abdomen/GI: Negative for abdominal pain, nausea, vomiting, diarrhea, and constipation, Back: Negative for injury and pain, : Negative for injury, bleeding, discharge, and swelling, MS/Extremity: Negative for injury and deformity, Skin: Negative for injury, rash, and discoloration. 03:09 Neck: Positive for pain with movement, pain at rest, stiffness, of the right occipital area and right base of the skull and right posterior lateral neck. 03:09 Neuro: Positive for neck pain causes headache. Exam: 03:08 Constitutional: This is a well developed, well nourished patient who is awake, alert, snw and in no acute distress. Head/Face: Normocephalic, atraumatic. Eyes: Pupils equal round and reactive to light, extra-ocular motions intact. Lids and lashes normal. Conjunctiva and sclera are non-icteric and not injected. Cornea within normal limits. Periorbital areas with no swelling, redness, or edema. ENT: Nares patent. No nasal discharge, no septal abnormalities noted. Tympanic membranes are normal and external auditory canals are clear. Oropharynx with no redness, swelling, or masses, exudates, or evidence of obstruction, uvula midline. Mucous membranes moist. Chest/axilla: Normal chest wall appearance and motion. Nontender with no deformity. No lesions are appreciated. Cardiovascular: Regular rate and rhythm with a normal S1 and S2. No gallops, murmurs, or rubs. Normal PMI, no JVD. No pulse deficits. Respiratory: Lungs have equal breath sounds bilaterally, clear to auscultation and percussion. No rales, rhonchi or wheezes noted. No increased work of breathing, no retractions or nasal flaring. Abdomen/GI: Soft, non-tender, with normal bowel sounds. No distension or tympany. No guarding or rebound. No evidence of tenderness throughout. Back: No spinal tenderness. No costovertebral tenderness. Full range of motion. Skin: Warm, dry with normal turgor. Normal color with no rashes, no lesions, and no evidence of cellulitis. MS/ Extremity: Pulses equal, no cyanosis. Neurovascular intact. Full, normal range of motion. Neuro: Awake and alert, GCS 15, oriented to person, place, time, and situation. Cranial nerves II-XII grossly intact. Motor strength 5/5 in all extremities. Sensory grossly intact. Cerebellar exam normal. Normal gait. 03:08 Neck: External neck: tenderness, that is moderate, that is severe, of the right mid cervical area and right trapezius. Vital Signs: 01:10 BP 140 / 89; Pulse 88; Resp 18; Temp 99.7(O); Pulse Ox 97% on R/A; Weight 95.71 kg (R); jb4 Height 5 ft. 10 in. (177.80 cm); Pain 8/10; 02:00 BP 130 / 64; Pulse 81; Resp 16; Pulse Ox 97% on R/A; jb4 03:00 BP 143 / 77; Pulse 86; Resp 16; Pulse Ox 96% on R/A; jb4 04:00 BP 147 / 79; Pulse 82; Resp 16; Pulse Ox 96% on R/A; jb4 01:10 Body Mass Index 30.28 (95.71 kg, 177.80 cm) jb4 [place] Coma Score: 03:45 Eye Response: spontaneous(4). Verbal Response: oriented(5). Motor Response: obeys snw commands(6). Total: 15. MDM: 02:55 Patient medically screened. snw 03:45 Data reviewed: vital signs, nurses notes. Counseling: I had a detailed discussion with snw the patient and/or guardian regarding: the historical points, exam findings, and any diagnostic results supporting the discharge/admit diagnosis, the presence of at least one elevated blood pressure reading (>120/80) during this emergency department visit, lab results, radiology results, the need for outpatient follow up, to return to the emergency department if symptoms worsen or persist or if there are any questions or concerns that arise at home. Special discussion: I have referred the patient to see his PCP for further evaluation of high blood pressure. Based on the history and exam findings, there is no indication for further emergent testing or inpatient evaluation. I discussed with the patient/guardian the need to see the neurologist for further evaluation of the symptoms. I discussed with the patient/guardian the need to see the primary care provider for further evaluation of the symptoms. 10 02:45 Order name: CBC with Diff; Complete Time: 03:42 snw 01/21 02:45 Order name: Chem 7; Complete Time: 03:32 snw 01/21 01:39 Order name: CT Head C Spine snw 01/21 02:45 Order name: Sed Rate; Complete Time: 03:42 snw Administered Medications: 03:17 Drug: fentaNYL (PF) 25 mcg {Note: Rass Score 0.} Route: IVP; Site: right antecubital; jb4 03:40 Follow up: Response: No adverse reaction; Pain is decreased; RASS: Alert and Calm (0) jb4 03:18 Drug: Valium 5 mg Route: IVP; Site: right antecubital; jb4 03:40 Follow up: Response: No adverse reaction; Pain is decreased jb4 03:19 Drug: NS 0.9% 1000 ml Route: IV; Rate: 125 ml/hr; Site: right antecubital; jb4 04:02 Follow up: Response: No adverse reaction; IV Status: Order to discontinue infusion; IV jb4 Intake: 84ml 04:04 Drug: Decadron - Dexamethasone 10 mg Route: IVP; Site: right forearm; jb4 04:05 Follow up: Response: Medication administered at discharge. jb4 Disposition: 05:15 Co-signature as Attending Physician, Nikita Gold MD Available for consultation at ps1 all times . Disposition: 01/21/19 03:44 Discharged to Home. Impression: Radiculopathy, cervical region. - Condition is Stable. - Discharge Instructions: Cervical Radiculopathy, Cryotherapy, Heat Therapy. - Prescriptions for Tramadol 50 mg Oral Tablet - take 1 tablet by ORAL route every 8 hours as needed; 12 tablet. orphenadrine citrate 100 mg Oral Tablet Sustained Release - take 1 tablet by ORAL route 2 times per day As needed; 20 tablet. Prednisone 20 mg Oral Tablet - take 2 tablet by ORAL route once daily for 5 days; 10 tablet. - Medication Reconciliation Form, Thank You Letter, Antibiotic Education, Prescription Opioid Use form. - Follow up: Private Physician; When: 2 - 3 days; Reason: Recheck today's complaints, Continuance of care, Re-evaluation by your physician. Follow up: Emergency Department; When: As needed; Reason: Worsening of condition. Signatures: Dispatcher [employer] [facility] JaniceBreyl ryder, SCIENTIFIC AIDE-C SCIENTIFIC AIDE-Csnw Ambrosio Choi, RN RN jb4 Nikita Gold MD MD ps1 Corrections: (The following items were deleted from the chart) 04:09 03:44 01/21/2019 03:44 Discharged to Home. Impression: Radiculopathy, cervical region. jb4 Condition is Stable. Discharge Instructions: Cervical Radiculopathy, Cryotherapy, Heat Therapy. Prescriptions for Tramadol 50 mg Oral Tablet - take 1 tablet by ORAL route every 8 hours as needed; 12 tablet, orphenadrine citrate 100 mg Oral Tablet Sustained Release - take 1 tablet by ORAL route 2 times per day As needed; 20 tablet, Prednisone 20 mg Oral Tablet - take 2 tablet by ORAL route once daily for 5 days; 10 tablet. and Forms are Medication Reconciliation Form, Thank You Letter, Antibiotic Education, Prescription Opioid Use. Follow up: Private Physician; When: 2 - 3 days; Reason: Recheck today's complaints, Continuance of care, Re-evaluation by your physician. Follow up: Emergency Department; When: As needed; Reason: Worsening of condition. snw
--- NOTE | 2019-01-21 03:44 | ER ---
Nurse's Notes [facility] Name: Mahin Alonzo Age: 63 yrs Sex: Male : 1955 Arrival Date: 01/21/2019 Time: 01:01 Bed 15 Private MD: Diagnosis: Radiculopathy, cervical region Presentation: 01/21 01:10 Presenting complaint: Patient states: I have had neck pain for the past 2 days that jb4 intensifies until I have a headache too. I have been taking Ibuprofen and using cold and heat packs, tonight it has just intensified worse. I am worried because a co-workers has had meningitis and I have been around her. 01:10 Transition of care: patient was not received from another setting of care. Onset of jb4 symptoms was January 19, 2019. Risk Assessment: Do you want to hurt yourself or someone else? Patient reports no desire to harm self or others. Initial Sepsis Screen: Does the patient meet any 2 criteria? No. Patient's initial sepsis screen is negative. Does the patient have a suspected source of infection? Yes: S/S of meningitis or endocarditis. Care prior to arrival: None. 01:10 Method Of Arrival: Ambulatory jb4 01:10 Acuity: SAMEER 3 jb4 Historical: - Allergies: 01:10 Sulfa (Sulfonamide Antibiotics); jb4 01:10 drugs w/ sulfer; jb4 - Home Meds: 01:10 valsartan 320 mg Oral tab [Active]; simvastatin 20 mg Oral tab [Active]; clonidine HCl jb4 0.1 mg Oral tab 1 tab as needed [Active]; doxazosin 4 mg oral tab 1 tab once daily [Active]; Chinyere Chewable Aspirin 81 mg Oral chew 1 tab once daily [Active]; omeprazole 20 mg Oral cpDR 1 cap once daily [Active]; Coreg CR 80 mg Oral CM24 [Active]; - PMHx: 01:10 Gastric Reflux; knee pain; Hyperlipidemia; Hypertension; jb4 - PSHx: 01:10 COLON RESECTION FOR DIVERTICULITIS; jb4 - Immunization history:: Adult Immunizations up to date. - Social history:: Smoking status: Patient/guardian denies using tobacco, Patient uses alcohol, only on a social basis. - Ebola Screening: : No symptoms or risks identified at this time. Screenin:10 Abuse screen: Denies threats or abuse. Nutritional screening: No deficits noted. jb4 Tuberculosis screening: No symptoms or risk factors identified. Fall Risk None identified. Assessment: 01:10 General: Appears in no apparent distress. uncomfortable, Behavior is calm, cooperative, jb4 appropriate for age. Pain: Complains of pain in neck Pain radiates to head Pain currently is 5 out of 10 on a pain scale. at worst was 8 out of 10 on a pain scale. Quality of pain is described as shooting, stabbing. Neuro: Level of Consciousness is awake, alert, obeys commands, Oriented to person, place, time, situation. Cardiovascular: Patient's skin is warm and dry. Respiratory: Airway is patent Respiratory effort is even, unlabored, Respiratory pattern is regular, symmetrical. GI: No deficits noted. No signs and/or symptoms were reported involving the gastrointestinal system. : No deficits noted. No signs and/or symptoms were reported regarding the genitourinary system. EENT: No deficits noted. No signs and/or symptoms were reported regarding the EENT system. Derm: Skin is intact, Skin is pink, warm \T\ dry. Musculoskeletal: Circulation, motion, and sensation intact. Range of motion: intact in neck. 02:00 Reassessment: Patient appears in no apparent distress at this time. Patient and/or jb4 family updated on plan of care and expected duration. Pain level reassessed. Patient is alert, oriented x 3, equal unlabored respirations, skin warm/dry/pink. 03:00 Reassessment: Patient appears in no apparent distress at this time. Patient and/or jb4 family updated on plan of care and expected duration. Pain level reassessed. Patient is alert, oriented x 3, equal unlabored respirations, skin warm/dry/pink. 04:06 Reassessment: Patient appears in no apparent distress at this time. Patient and/or jb4 family updated on plan of care and expected duration. Pain level reassessed. Patient is alert, oriented x 3, equal unlabored respirations, skin warm/dry/pink. PT verbalized understanding of d/c and follow up instructions. D/c'ed to lobby to wait for ride. Vital Signs: 01:10 BP 140 / 89; Pulse 88; Resp 18; Temp 99.7(O); Pulse Ox 97% on R/A; Weight 95.71 kg (R); jb4 Height 5 ft. 10 in. (177.80 cm); Pain 8/10; 02:00 BP 130 / 64; Pulse 81; Resp 16; Pulse Ox 97% on R/A; jb4 03:00 BP 143 / 77; Pulse 86; Resp 16; Pulse Ox 96% on R/A; jb4 04:00 BP 147 / 79; Pulse 82; Resp 16; Pulse Ox 96% on R/A; jb4 01:10 Body Mass Index 30.28 (95.71 kg, 177.80 cm) jb4 [place] Coma Score: 03:45 Eye Response: spontaneous(4). Verbal Response: oriented(5). Motor Response: obeys snw commands(6). Total: 15. ED Course: 01:01 Patient arrived in ED. ag3 01:10 Arm band placed on right wrist. jb4 01:10 Patient has correct armband on for positive identification. Bed in low position. Call jb4 light in reach. Side rails up X 1. Pulse ox on. NIBP on. 01:17 Ambrosio Choi, RN is Primary Nurse. jb4 01:20 Triage completed. jb4 01:38 Ber[facility] Camacho [facility]-C [facility]. snw 01:38 Nikita Gold MD is Attending Physician. snw 02:27 CT completed. Patient tolerated procedure well. Patient moved to CT via stretcher. Patient moved back from CT. 02:31 CT Head C Spine In Process Unspecified. EDMS 03:05 Initial lab(s) drawn, by me, sent to lab. Inserted saline lock: 20 gauge in right jb4 forearm, using aseptic technique. Blood collected. 04:08 No provider procedures requiring assistance completed. IV discontinued, intact, jb4 bleeding controlled, No redness/swelling at site. Pressure dressing applied. Administered Medications: 03:17 Drug: fentaNYL (PF) 25 mcg {Note: Rass Score 0.} Route: IVP; Site: right antecubital; jb4 03:40 Follow up: Response: No adverse reaction; Pain is decreased; RASS: Alert and Calm (0) jb4 03:18 Drug: Valium 5 mg Route: IVP; Site: right antecubital; jb4 03:40 Follow up: Response: No adverse reaction; Pain is decreased jb4 03:19 Drug: NS 0.9% 1000 ml Route: IV; Rate: 125 ml/hr; Site: right antecubital; jb4 04:02 Follow up: Response: No adverse reaction; IV Status: Order to discontinue infusion; IV jb4 Intake: 84ml 04:04 Drug: Decadron - Dexamethasone 10 mg Route: IVP; Site: right forearm; jb4 04:05 Follow up: Response: Medication administered at discharge. jb4 Intake: 04:02 IV: 84ml; Total: 84ml. jb4 Outcome: 03:44 Discharge ordered by MD. hackett 04:09 Discharged to home ambulatory, with family. jb4 04:09 Condition: stable 04:09 Discharge instructions given to patient, Instructed on discharge instructions, follow up and referral plans. medication usage, Demonstrated understanding of instructions, follow-up care, medications, Prescriptions given X 3. 04:09 Patient left the ED. jb4 Signatures: Dispatcher [employer] EDMS Beryl Camacho, KNIFE SETTER ASSEMBLER-C KNIFE SETTER ASSEMBLER-Csnw Estuardo Kaufman James, RN RN jb4 Sophia Burns ag3
[2019-01-21] MEDS ORDERED: dexAMETHasone 10 MG/ML VIAL ONE (03:54)
[2019-01-21 04:25] VITALS: TEMP 99.7
[2019-01-21 04:28] VITALS: O2SAT 96
[2019-01-21 04:29] VITALS: BP 147/79
--- NOTE | 2019-01-21 10:49 | RAD REPORT ---
EXAM DESCRIPTION: CT Head and Cervical Spine Without Intravenous Contrast CLINICAL HISTORY: The patient is 63 years old and is Male; PAIN TECHNIQUE: Axial computed tomography images of the head/brain and cervical spine without intravenous contrast. Sagittal and coronal reformatted images were created and reviewed. This CT exam was pe rformed using one or more of the following dose reduction techniques: automated exposure control, a djustment of the mA and/or kV according to patient size, and/or use of iterative reconstruction techn ique. COMPARISON: None. FINDINGS: BRAIN: Unremarkable. No hemorrhage. No significant white matter disease. No edema . VENTRICLES: Unremarkable. No ventriculomegaly. SKULL: No acute fracture. SINUSES: Unremarkable as visualized. No acute sinusitis. MASTOID AIR CELLS: Mastoid air cells are well pneumatized. Small osteoma on the left. ORBITS: Globes and orbits are within normal limits. VERTEBRAE: Small anterolisthesis of C3 on C4. No acute fracture. DISCS/SPINAL CANAL/NEURAL FORAMINA: Advanced disc space narrowing at C6-7. Associated spondylosis with spinal canal and bilateral foraminal narrowing, right greater than left. Mild C5-6 disc space na rrowing. Mild multilevel facet arthropathy. Mild scattered uncovertebral joint hypertrophy. SOFT TISSUES: Unremarkable. NASAL CAVITY/SEPTUM: Leftward deviation of bony nasal septum with associated spurring. THYROID: Visualized thyroid are within normal limits. LUNG APICES: Apical lung zones are clear. IMPRESSION: 1. No acute intracranial hemorrhage, hydrocephalus or herniation. 2. No acute cervical spine fracture. 3. Mild cerebral volume loss and chronic small vessel ischemic changes. If clinical concern for acu te ischemia, consider MRI brain without contrast for further evaluation. 4. Multilevel degenerative changes, worse at C6-7 with advanced right foraminal narrowing. Electronically signed by: Froylan Cifuentes DO 01/21/2019 2:42 AM CDT Due to temporary technical issues with the PACS/Fluency reporting system, reports are being signed by the in house radiologist as a courtesy to ensure prompt reporting. The interpreting radiologist is f ully responsible for the content of the report.
== END 2019-01-21 04:09 | disposition home or self-care (01) ==
LOC: ER 00:58
DX: M54.12 Radiculopathy, cervical region (principal); I10 Essential (primary) hypertension; E78.5 Hyperlipidemia, unspecified; Z79.82 Long term (current) use of aspirin; Z88.2 Allergy status to sulfonamides; Z88.8 Allergy status to other drugs, medicaments and biological substances
CPT/HCPCS: 36415; 70450; 72125; 80048; 85025; 85652; 96361; 96374; 96375; 99284; J1100; J3010; J3360; J7030

== ENCOUNTER 2019-03-24 17:53 | Emergency (ER) | payer OTHER, SELFPAY ==
--- OUTSIDE RECORDS SUMMARY | 2019-03-24 18:14 | XMS REPORT ---
:1955 [facility] Address [address] [place] [address] Care Team Providers Name Role Phone Unavailable [...] are performed. Quantitative analysis is performed with Lama LabaCAD. IV contrast is administered, 15.0 ml Multihance Dynamic post-contrast imaging with Lama LabaCAD quantitative analysis are accomplished.[id number] MR DynaCADIMPRESSION:No suspicious focal lesions are targeted. [...]
--- NOTE | 2019-03-24 19:58 | RAD REPORT ---
EXAM DESCRIPTION: RAD - Chest Pa And Lat (2 Views) - 03/24/2019 7:46 pm CLINICAL HISTORY: PALPITATIONS Chest pain. COMPARISON: Chest Pa And Lat (2 Views) dated 09/01/2017; CHEST SINGLE VIEW dated 04/07/2015 TECHNIQUE: PA and lateral views of the chest were obtained. FINDINGS: The lungs are hyperexpanded compatible with COPD. The heart is upper limit of normal in si ze. No fracture or aggressive bony process. IMPRESSION: COPD without acute process identified.
--- NOTE | 2019-03-24 20:05 | EDPHYS ---
Physician Documentation [facility] Name: Mahin Alonzo Age: 63 yrs Sex: Male : 1955 Arrival Date: 03/24/2019 Time: 17:57 Bed 18 Private MD: Nini Velasquez C ED Physician Nikita Gold HPI: 03/24 19:28 This 63 yrs old Male presents to ER via Ambulatory with complaints of Heart snw Rate problems. 19:28 Onset: The symptoms/episode began/occurred suddenly, today, at 17:30. Associated signs snw and symptoms: Pertinent positives: cough. Modifying factors: The patient symptoms are alleviated by cough. The patient has experienced similar episodes in the past, lasted longer today. The patient has not recently seen a physician. Historical: - Allergies: 18:19 drugs w/ sulfer; hb 18:19 Sulfa (Sulfonamide Antibiotics); hb - Home Meds: 18:19 Chinyere Chewable Aspirin 81 mg Oral chew 1 tab once daily [Active]; clonidine HCl 0.1 mg hb Oral tab 1 tab as needed [Active]; Coreg CR 80 mg Oral CM24 once daily [Active]; doxazosin 4 mg Oral tab 1 tab once daily [Active]; omeprazole 20 mg Oral cpDR 1 cap once daily [Active]; simvastatin 20 mg Oral tab [Active]; tramadol 50 mg Oral tab [Active]; valsartan 320 mg Oral tab [Active]; - PMHx: 18:19 Gastric Reflux; Hyperlipidemia; Hypertension; knee pain; hb - PSHx: 18:19 COLON RESECTION FOR DIVERTICULITIS; hb - Immunization history:: Adult Immunizations up to date. - Social history:: Smoking status: Patient/guardian denies using tobacco. - Ebola Screening: : No symptoms or risks identified at this time. ROS: 19:30 Constitutional: Negative for fever, chills, and weight loss, Eyes: Negative for injury, snw pain, redness, and discharge, ENT: Negative for injury, pain, and discharge, Neck: Negative for injury, pain, and swelling, Respiratory: Negative for shortness of breath, cough, wheezing, and pleuritic chest pain, Abdomen/GI: Negative for abdominal pain, nausea, vomiting, diarrhea, and constipation, Back: Negative for injury and pain, : Negative for injury, bleeding, discharge, and swelling, MS/Extremity: Negative for injury and deformity, Skin: Negative for injury, rash, and discoloration, Neuro: Negative for headache, weakness, numbness, tingling, and seizure. 19:30 Cardiovascular: Positive for palpitations. Exam: 19:28 Constitutional: This is a well developed, well nourished patient who is awake, alert, snw and in no acute distress. Head/Face: Normocephalic, atraumatic. Eyes: Pupils equal round and reactive to light, extra-ocular motions intact. Lids and lashes normal. Conjunctiva and sclera are non-icteric and not injected. Cornea within normal limits. Periorbital areas with no swelling, redness, or edema. ENT: Nares patent. No nasal discharge, no septal abnormalities noted. Tympanic membranes are normal and external auditory canals are clear. Oropharynx with no redness, swelling, or masses, exudates, or evidence of obstruction, uvula midline. Mucous membranes moist. Neck: Trachea midline, no thyromegaly or masses palpated, and no cervical lymphadenopathy. Supple, full range of motion without nuchal rigidity, or vertebral point tenderness. No Meningismus. Chest/axilla: Normal chest wall appearance and motion. Nontender with no deformity. No lesions are appreciated. Cardiovascular: Regular rate and rhythm with a normal S1 and S2. No gallops, murmurs, or rubs. Normal PMI, no JVD. No pulse deficits. Respiratory: Lungs have equal breath sounds bilaterally, clear to auscultation and percussion. No rales, rhonchi or wheezes noted. No increased work of breathing, no retractions or nasal flaring. Abdomen/GI: Soft, non-tender, with normal bowel sounds. No distension or tympany. No guarding or rebound. No evidence of tenderness throughout. Back: No spinal tenderness. No costovertebral tenderness. Full range of motion. Skin: Warm, dry with normal turgor. Normal color with no rashes, no lesions, and no evidence of cellulitis. MS/ Extremity: Pulses equal, no cyanosis. Neurovascular intact. Full, normal range of motion. Neuro: Awake and alert, GCS 15, oriented to person, place, time, and situation. Cranial nerves II-XII grossly intact. Motor strength 5/5 in all extremities. Sensory grossly intact. Cerebellar exam normal. Normal gait. Psych: Awake, alert, with orientation to person, place and time. Behavior, mood, and affect are within normal limits. Vital Signs: 18:17 BP 163 / 94; Pulse 78; Resp 16; Temp 97.9; Pulse Ox 100% on R/A; Weight 85.73 kg; hb Height 5 ft. 10 in. (177.80 cm); Pain 0/10; 19:45 BP 149 / 87; Pulse 72; Resp 18; Pulse Ox 100% on R/A; wh 20:30 BP 144 / 76; Pulse 62; Resp 18; Pulse Ox 99% on R/A; wh 18:17 Body Mass Index 27.12 (85.73 kg, 177.80 cm) hb MDM: 19:03 Patient medically screened. snw 20:05 Data reviewed: vital signs, nurses notes. Data interpreted: Pulse oximetry: on room air snw is 100 %. Interpretation: normal. Counseling: I had a detailed discussion with the patient and/or guardian regarding: the historical points, exam findings, and any diagnostic results supporting the discharge/admit diagnosis, the presence of at least one elevated blood pressure reading (>120/80) during this emergency department visit, radiology results, the need for outpatient follow up, to return to the emergency department if symptoms worsen or persist or if there are any questions or concerns that arise at home. Special discussion: Based on the history and exam findings, there is no indication for further emergent testing or inpatient evaluation. I discussed with the patient/guardian the need to see the primary care provider for further evaluation of the symptoms. 03/24 19:03 Order name: Chest Pa And Lat (2 Views) XRAY; Complete Time: 20:03 snw 03/24 19:03 Order name: EKG; Complete Time: 19:11 snw 03/24 19:03 Order name: EKG - Nurse/Tech; Complete Time: 19:20 snw Administered Medications: No medications were administered Disposition: 03/25 09:03 Co-signature as Attending Physician, Nikita Gold MD Available for consultation ps1 during the encounter in the ED. Signing chart for administrative purposes. . Disposition: 03/24/19 20:04 Discharged to Home. Impression: Palpitations, Cough. - Condition is Stable. - Discharge Instructions: Palpitations, Cool Mist Vaporizer, Cough, Adult, [id number]. - Medication Reconciliation Form, Thank You Letter, Antibiotic Education, Prescription Opioid Use, Work release form form. - Follow up: Nini Velasquez MD; When: Tomorrow; Reason: Recheck today's complaints, Continuance of care, Re-evaluation by your physician. Follow up: Emergency Department; When: As needed; Reason: Worsening of condition. Signatures: Dispatcher [employer] EDAR Beryl Camacho, AMAYA-C LANDSCAPER HELPER-Csnw Fabiola Marquez, RN RN Srinivaskootenai healthJovana Nikita Gold MD MD ps1 Corrections: (The following items were deleted from the chart) 03/24 20:40 20:04 03/24/2019 20:04 Discharged to Home. Impression: Palpitations; Cough. Condition wh is Stable. Forms are Medication Reconciliation Form, Thank You Letter, Antibiotic Education, Prescription Opioid Use. Follow up: Nini Velasquez; When: Tomorrow; Reason: Recheck today's complaints, Continuance of care, Re-evaluation by your physician. Follow up: Emergency Department; When: As needed; Reason: Worsening of condition. snw
--- NOTE | 2019-03-24 20:05 | ER ---
Nurse's Notes [facility] Name: Mahin Alonzo Age: 63 yrs Sex: Male : 1955 Arrival Date: 03/24/2019 Time: 17:57 Bed 18 Private MD: Nini Velasquez C Diagnosis: Palpitations;Cough Presentation: 03/24 18:16 Presenting complaint: Intermittent palpitation x 1 hr. Denies SOB/cough/pain. hb Transition of care: patient was not received from another setting of care. Onset of symptoms was March 24, 2019. Risk Assessment: Do you want to hurt yourself or someone else? Patient reports no desire to harm self or others. Care prior to arrival: None. 18:16 Method Of Arrival: Ambulatory hb 18:16 Acuity: SAMEER 3 hb 19:30 Initial Sepsis Screen: Does the patient meet any 2 criteria? No. Patient's initial wh sepsis screen is negative. Does the patient have a suspected source of infection? No. Patient's initial sepsis screen is negative. Triage Assessment: 18:20 General: Appears in no apparent distress. comfortable, Behavior is cooperative, bp appropriate for age, anxious. Pain: Denies pain. EENT: No deficits noted. Neuro: No deficits noted. Cardiovascular: Rhythm is sinus rhythm. Respiratory: No deficits noted. GI: No signs and/or symptoms were reported involving the gastrointestinal system. : No signs and/or symptoms were reported regarding the genitourinary system. Derm: No deficits noted. Musculoskeletal: No deficits noted. Historical: - Allergies: 18:19 drugs w/ sulfer; hb 18:19 Sulfa (Sulfonamide Antibiotics); hb - Home Meds: 18:19 Chinyere Chewable Aspirin 81 mg Oral chew 1 tab once daily [Active]; clonidine HCl 0.1 mg hb Oral tab 1 tab as needed [Active]; Coreg CR 80 mg Oral CM24 once daily [Active]; doxazosin 4 mg Oral tab 1 tab once daily [Active]; omeprazole 20 mg Oral cpDR 1 cap once daily [Active]; simvastatin 20 mg Oral tab [Active]; tramadol 50 mg Oral tab [Active]; valsartan 320 mg Oral tab [Active]; - PMHx: 18:19 Gastric Reflux; Hyperlipidemia; Hypertension; knee pain; hb - PSHx: 18:19 COLON RESECTION FOR DIVERTICULITIS; hb - Immunization history:: Adult Immunizations up to date. - Social history:: Smoking status: Patient/guardian denies using tobacco. - Ebola Screening: : No symptoms or risks identified at this time. Screenin:44 Abuse screen: Denies threats or abuse. Denies injuries from another. Nutritional bp screening: No deficits noted. Tuberculosis screening: No symptoms or risk factors identified. Fall Risk None identified. Assessment: 18:20 General: SEE TRIAGE NOTE. bp 19:30 General: Appears in no apparent distress. Behavior is calm, cooperative, appropriate wh for age. Pain: Denies pain. Neuro: Level of Consciousness is awake, alert, obeys commands, Oriented to person, place, time, situation, Appropriate for age. Cardiovascular: Heart tones S1 S2. Cardiovascular: Reports palpitations. Cardiovascular: Rhythm is regular. Respiratory: Airway is patent Respiratory effort is even, unlabored, Respiratory pattern is regular, symmetrical, Breath sounds are clear bilaterally. GI: Abdomen is flat, non-distended. : No signs and/or symptoms were reported regarding the genitourinary system. EENT: Derm: Skin is intact, is healthy with good turgor, Skin is pink, warm \T\ dry. normal. Musculoskeletal: Circulation, motion, and sensation intact. 20:38 Reassessment: Patient appears in no apparent distress at this time. No changes from previously documented assessment. Patient and/or family updated on plan of care and expected duration. Pain level reassessed. Patient is alert, oriented x 3, equal unlabored respirations, skin warm/dry/pink. Patient denies pain at this time. Vital Signs: 18:17 BP 163 / 94; Pulse 78; Resp 16; Temp 97.9; Pulse Ox 100% on R/A; Weight 85.73 kg; hb Height 5 ft. 10 in. (177.80 cm); Pain 0/10; 19:45 BP 149 / 87; Pulse 72; Resp 18; Pulse Ox 100% on R/A; wh 20:30 BP 144 / 76; Pulse 62; Resp 18; Pulse Ox 99% on R/A; wh 18:17 Body Mass Index 27.12 (85.73 kg, 177.80 cm) hb ED Course: 17:57 Patient arrived in ED. mr 17:57 Nini Velasquez MD is Private Physician. mr 18:17 Triage completed. hb 18:19 Arm band placed on. hb 18:23 Herminio Mathews, RN is Primary Nurse. bp 18:44 Patient has correct armband on for positive identification. Bed in low position. Call bp light in reach. Side rails up X2. 19:02 [facility]acho [facility]C [facility] snw 19:02 Nikita Gold MD is Attending Physician. snw 19:45 Chest Pa And Lat (2 Views) XRAY In Process Unspecified. EDMS 20:03 Nini Velasquez MD is Referral Physician. snw 20:39 No provider procedures requiring assistance completed. Patient did not have IV access wh during this emergency room visit. Administered Medications: No medications were administered Outcome: 20:04 Discharge ordered by . snw 20:39 Discharged to home ambulatory. wh 20:39 Condition: stable 20:39 Discharge instructions given to patient, Instructed on discharge instructions, follow up and referral plans. POC Palpitations Demonstrated understanding of instructions, follow-up care, POC 20:40 Patient left the ED. Signatures: Dispatcher [employer] EDTN Beryl Camacho FNP-C TELEPRINTER INSTALLER-Bernardaw Steffanie RiceFabiola, RN RN Jovana Ley Herminio Mathews, RN RN bp
[2019-03-24 22:40] VITALS: TEMP 97.9
[2019-03-24 22:43] VITALS: BP 144/76; O2SAT 99
--- NOTE | 2019-03-25 22:59 | EKG ---
Test Date: 2019-03-24 Test Time: 19:08:36 Battery Filler: YARA MEASUREMENT RESULTS: Intervals: Rate: 60 HI: 180 QRSD: 94 QT: 404 QTc: 404 Beatty: P: 59 HI: 180 QRS: 39 T: 70 INTERPRETIVE STATEMENTS: Normal sinus rhythm Normal ECG Compared to ECG 09/02/2017 09:39:52 No significant changes Electronically Signed On 03-25-19 22:57:18 ORGANISATIONAL PSYCHOLOGIST by Jefferson Cloud
== END 2019-03-24 20:40 | disposition home or self-care (01) ==
LOC: ER 17:53
DX: R00.2 Palpitations (principal); R05 Cough; Z88.2 Allergy status to sulfonamides; K21.9 Gastro-esophageal reflux disease without esophagitis; E78.5 Hyperlipidemia, unspecified; I10 Essential (primary) hypertension
CPT/HCPCS: 71046; 93005; 99284

== ENCOUNTER 2023-01-02 03:15 | Emergency (ER) | payer OTHER ==
--- OUTSIDE RECORDS SUMMARY | 2023-01-02 03:18 | XMS REPORT | Continuity of Care Document ---
:1955 Author Organization [facility] t Address [address]. [address] [place] [address] Care Team Providers Name Role Phone [phone] Primary Care Physician Unavailable Jhonathan Attending Clinician Unavailable Dale PETERSEN, Betzaida Walters Attending Clinician Abimael Young MD Attending Clinician Gamaliel PETERSEN, Aleja Attending Clinician Raheel PETERSEN, Slava Fisher Attending Clinician Jr MILLER, Deepika Rasmussen Attending Clinician FLORECITA MCARTHUR Attending Clinician Unavailable ADAM ANNE Attending Clinician Unavailable ANNA REICH Attending Clinician Unavailable Jhonathan Admitting Clinician Unavailable MD ALEJA ALSTON Admitting Clinician Unavailable Payers Payer Name Policy Type Policy Number Effective Date Expiration Date S sean [place]: [id number] 2020 Companion Canine 00:00:00 [employer] LIFE [id number] INSURANCE COMPANY (MEDICARE SUPPLEMENT) MEDICARE PART A [id number] 2020 AND B 00:00:00 AETNA SENIOR [id number] 2021 SUPPLEMENT-SECONDA 00:00:00 [place] [id number] 2019 [place] 00:[place]:00 [place] [id number] 2019 00:00:00 Problems Condition Condition Condition Status Onset Resolution Last Treating Co mments Source Name Details Category Date Date Treatment Clinician Date Primary Primary Problem Active [place] erectile Erectile 9-06 [facility] dysfunctio Dysfunctio 00:00: Ur ology n n 00 Left flank Left Flank Problem Active [place] pain Pain 3-07 [facility] 00:00: Urology 00 Body mass Body Mass Problem Active [facility] index Index 3-08 [facility] 25-29 - 25-29 - 00:00: Urology overweight Overweight 00 Nocturia Nocturia Problem Active [place] 3-08 [facility] 00:00: Urology 00 Hypertensi Hypertensi Problem Active [place] ve ve 9-17 [facility] disorder Disorder 00:00: Urolog y 00 History of History of Problem Active [place] urinary Urinary 4-16 [facility] stone Stone 00:00: Urology 00 Acute Acute Problem Active [place] urinary Urinary 5-23 [facility] tract Tract 00:00: Urology infection Infection 00 Benign Benign Problem Active [place] prostatic Prostatic 5-23 [facility] o hyperplasi Hyperplasi 00:00: Ur ology a with a with 00 outflow Outflow obstructio Obstructio n n Impotence Impotence Problem Active 2014-04 [facility] 0-15 [facility] 00:00: Urology 00 Large Large Problem Active 2014-04 [place] prostate Prostate 0-15 [facility] 00:00: Urology 00 Prostate Prostate Problem Active 2014-04 [place] specific Specific 0-15 [facility] antigen Antigen 00:00: Urology above above 00 reference Reference range Range Renal Renal Problem Active 2013-04 [place] colic Colic 1-12 [facility] 00:00: Urology 00 Allergies, Adverse Reactions, Alerts Allergy Allergy Status Severity Reaction(s) Onset Inactive Treating Comm ents Source Name Type Date Date Clinician Sulfur Propensi Active GI Nausea/ [facility] (Do Not ty to Intolerance 1-[address] Use For adverse 00:00: Hospita Sulfa reaction 00 l Drugs) s to drug SULFUR DRUG Active Nausea 2014-04 INGREDI 04-23 Anderso 00:00: n 00 SULFUR DRUG Active Nausea 2014-04 MD INGREDI 04-23 Anderso 00:00: n 00 SULFUR DRUG Active Nausea 2014-04 MD INGREDI 04-23 Anderso 00:00: n 00 SULFUR DRUG Active Nausea 2014-04 MD INGREDI 04-23 Anderso 00:00: n 00 SULFUR DRUG Active Nausea 2014-04 MD INGREDI 04-23 Anderso 00:00: n 00 SULFUR DRUG Active Nausea 2014-04 MD INGREDI 04-23 Anderso 00:00: n 00 SULFUR DRUG Active Nausea 2014-04 MD INGREDI 04-23 Anderso 00:00: n 00 SULFUR DRUG Active Nausea 2014-04 MD INGREDI 04-23 Anderso 00:00: n 00 SULFUR DRUG Active Nausea 2014-04 MD INGREDI 04-23 Anderso 00:00: n 00 Ibuprofe Allergy Active Other 1900-0 Perez n to 04-21 [facility] substanc 00:00: Urology e 00 IBUPROFE DRUG Active Other 1900-0 MD N INGREDI 04-21 Anderso 00:00: n 00 IBUPROFE DRUG Active Other 1900-0 MD N INGREDI 04-21 Anderso 00:00: n 00 IBUPROFE DRUG Active Other 1900-0 MD N INGREDI 04-21 Anderso 00:00: n 00 IBUPROFE DRUG Active Other 1900-0 MD N INGREDI 04-21 Anderso 00:00: n 00 IBUPROFE DRUG Active Other 1900-0 MD N INGREDI 04-21 Anderso 00:00: n 00 IBUPROFE DRUG Active Other 1900-0 MD N INGREDI 04-21 Anderso 00:00: n 00 IBUPROFE DRUG Active Other 1900-0 MD N INGREDI 04-21 Anderso 00:00: n 00 IBUPROFE DRUG Active Other 1900-0 MD N INGREDI 04-21 Anderso 00:00: n 00 IBUPROFE DRUG Active Other 1900-0 MD N INGREDI 04-21 Anderso 00:00: n 00 SULFA Allergy Active Nausea Perez (SULFONA to [facility] MIDE substanc Urology ANTIBIOT e ICS) SULFA Drug Active NauO (SULFONA Class Anderso MIDE n ANTIBIOT ICS) SULFA Drug Active [place] (SULFONA Class Anderso MIDE n ANTIBIOT ICS) SULFA Drug Active [place] MD (SULFONA Class Anderso MIDE n ANTIBIOT ICS) SULFA Drug Active [place] MD (SULFONA Class Anderso MIDE n ANTIBIOT ICS) SULFA Drug Active [place] MD (SULFONA Class Anderso MIDE n ANTIBIOT ICS) SULFA Drug Active [place] MD (SULFONA Class Anderso MIDE n ANTIBIOT ICS) SULFA Drug Active [place] MD (SULFONA Class Anderso MIDE n ANTIBIOT ICS) SULFA Drug Active [place] MD (SULFONA Class Anderso MIDE n ANTIBIOT ICS) SULFA Drug Active [place] MD (SULFONA Class Anderso MIDE n ANTIBIOT ICS) Social History Social Habit Start Date Stop Date Quantity Comments Source [facility] Alcohol intake 2022-10-20 2022-10-20 Current drinker [facility] 00:00:00 00:00:00 of [facility] (finding) History of Social 2022-10-20 2022-10-[address] function 00:00:00 00:00:00 Hospital Alcohol Comment 2016-04-25 2016-04-25 socially [facility] 00:00:00 00:00:00 [facility] Sex Assigned At [birth year] [facility] 00:[facility] Smoking Status Start Date Stop Date Source Never smoked tobacco [facility] Medications Ordered Filled Start Stop Current Ordering Indication Dosage Frequency Signature Comments Components Source Medication Medication Date Date Medication? Clinician (SIG) Name Name acetaminoph Yes 500mg Q6H Take 1 Met hodi en (Tylenol 10-[address] Extra 00:00: (500 mg Hospita Strength) 00 total) by l 500 MG mouth tablet every 6 (six) hours as needed for mild pain or fever. naproxen Yes 500mg Q.5D Take 1 Method i (NAPROSYN) 10-[address] 500 MG 00:00: (500 mg Hospita tablet 00 total) by l mouth 2 (two) times a day as needed for mild pain or headaches (fever). dextrometho 2022- No 1{tbl} Q.5D Take 1 M ethodi anahi-lorrainef 10-20 07-[address] enesin 00:00: 04:59 mouth 2 Hospita (Mucinex 00 :00 (two) l DM) 30-600 times a mg tablet day for 7 extended days. release 12 hr pseudoepHED 2022- No 120mg Q12H Take 1 Me thodi rine 10-20 07-[address] (Sudafed 12 00:00: 04:59 (120 mg Ho spita Hour) 120 00 :00 total) by l mg 12 hr mouth tablet every 12 (twelve) hours for 5 days. omeprazole 0 Yes QD Take by Meth yanick OTC 5-[address] (PriLOSEC 09:59: daily. Hospit a OTC) 20 MG 47 l EC tablet carvediloL 0 Yes 25mg Q.5D Take 1 [facility] (COREG) 25 5-17 tablet (25 st MG tablet 00:00: mg total) Hos naresh 00 by mouth 2 l (two) times a day with meals. furosemide 0 Yes 20mg QD Take 1 [facility] (LASIX) 20 5-02 tablet (20 st mg tablet 00:00: mg total) Hos naresh 00 by mouth l daily. famotidine 0 Yes 20mg QD Take 1 [facility] (PEPCID) 20 4-22 tablet (20 st MG tablet 16:17: mg total) Hos naresh 02 by mouth l daily. telmisartan 0 Yes 80mg QD Take 1 Meth yanick (MICARDIS) 4-21 tablet (80 st 80 MG 00:00: mg total) Hospita tablet 00 by mouth l daily. predniSONE 2022-0 2022- No 20mg QD Take 1 Meth yanick (DELTASONE) 4-21 04-27 tablet (20 s t 20 mg 00:00: 04:59 mg total) Hospit a tablet 00 :00 by mouth l daily for 5 days. sodium,pota Yes MIX AND Met hodi ssium,mag 4-[address] sulfates 00:00: DIRECTED Hospi ta (SUPREP) 00 PER l 17.5-3.13-1 COLONOSCOP .6 gram Y PACKET recon soln INSTRUCTIO NS metoclopram Yes TAKE 3 Meth yanick anjelica 4-[address] (REGLAN) 10 00:00: MOUTH Ho spita MG tablet 00 DIRECTED l BY COLONOSCOP Y PREP PACKET NuLev 0.125 Yes DISSOLVE 1 [facility]i mg 3-[address] tablet,disi 00:00: TABLETS ON Hospita ntegrating 00 THE TONGUE l EVERY 4 TO 6 HOURS NEEDED meloxicam 2021-04- No [id number] 7.5mg QD Take 1 [facility] (Mobic) 7.5 0-14 10-[address] mg tablet 00:00: 04:59 (7.5 mg [facility] [place] 00 :00 total) by l mouth daily. aspirin Yes 81mg QD Take 81 mg Meth yanick (ECOTRIN) 1-[address] 81 MG 15:20: daily. Hospita enteric 27 l coated tablet clonIDINE Yes .1mg Q24H Take 0.1 Meth yanick (CATAPRES) 1-[address] 0.1 MG 15:20: mouth Hospita tablet 27 daily as l needed for high blood pressure. vardenafil Yes 10mg Q24H Take 10 mg M ethodi (STAXYN) 10 1-[address] mg 15:20: daily as Hospita tablet,disi 27 needed. l ntegrating doxazosin 2015-04 Yes 4mg QD Take 4 mg Met hodi (CARDURA) 4 2-[address] MG tablet 00:00: daily. Hospit a 00 l simvastatin 2015-04 Yes 20mg QD Take 20 mg [facility] (ZOCOR) 20 2-[address] MG tablet 00:00: daily. Hospit a Take 1/2 l tablet by mouth daily COREG CR 80 2015-04 Yes 80mg QD Take 80 mg [facility] mg 24 hr 2-[address] capsule 00:00: daily. Hospita 00 l valsartan 2015-04 Yes 320mg QD Take 320 Met hodi (DIOVAN) 2-[address] 320 MG 00:00: mouth Hospita tablet 00 daily. l DEXILANT 60 2015-04 Yes 60mg QD Take 60 mg [facility] mg capsule 1-[address] 00:00: daily. Hospita 00 l Aspir-81 Aspir-81 No Aspir-81 [facility] carvedilol carvedilol No carvedilol Perez 25 mg 25 mg 25 mg [facility] tablet TAKE tablet TAKE tablet Urology 1 TABLET BY 1 TABLET BY TAKE 1 MOUTH TWICE MOUTH TWICE TABLET BY DAILY WITH DAILY WITH MOUTH FOOD FOOD TWICE DAILY WITH FOOD clonidine clonidine No clonidine [place] HCl 0.1 mg HCl 0.1 mg HCl 0.1 mg [facility] tablet TAKE tablet TAKE tablet Urology 1 TABLET BY 1 TABLET BY TAKE 1 MOUTH EVERY MOUTH EVERY TABLET BY DAY DAY MOUTH EVERY DAY doxazosin 4 doxazosin 4 No doxazosin [place] mg tablet mg tablet 4 mg [facility] TAKE 1/2 TAKE 1/2 tablet Urolo gy TABLET BY TABLET BY TAKE 1/2 MOUTH EVERY MOUTH EVERY TABLET BY DAY DAY MOUTH EVERY DAY furosemide furosemide No furosemide [place] 20 mg 20 mg 20 mg [facility] tablet TAKE tablet TAKE tablet Urology 1 TABLET BY 1 TABLET BY TAKE 1 MOUTH EVERY MOUTH EVERY TABLET BY DAY DAY MOUTH EVERY DAY simvastatin simvastatin No simvastati [place] 20 mg 20 mg n 20 mg [facility] tablet TAKE tablet TAKE tablet Urology 1/2 TABLET 1/2 TABLET TAKE 1/2 BY MOUTH BY MOUTH TABLET BY EVERY DAY EVERY DAY MOUTH IN THE IN THE EVERY DAY EVENING EVENING IN THE EVENING telmisartan telmisartan No telmisarta [place] 80 mg 80 mg n 80 mg [facility] tablet TAKE tablet TAKE tablet Urology 1 TABLET BY 1 TABLET BY TAKE 1 MOUTH EVERY MOUTH EVERY TABLET BY DAY DAY MOUTH EVERY DAY aspirin 81 aspirin 81 No 1capsul Q1D aspirin 81 Perez mg capsule mg capsule e(s) mg capsule [facility] Take 1 Take 1 Take 1 Urology capsule capsule capsule every day every day every day by oral by oral by oral route. route. route. carvedilol carvedilol No carvedilol [place] 25 mg 25 mg 25 mg [facility] tablet TAKE tablet TAKE tablet Urology 1 TABLET BY 1 TABLET BY TAKE 1 MOUTH TWICE MOUTH TWICE TABLET BY DAILY WITH DAILY WITH MOUTH FOOD FOOD TWICE DAILY WITH FOOD clonidine clonidine No clonidine [place] HCl 0.1 mg HCl 0.1 mg HCl 0.1 mg [facility] tablet TAKE tablet TAKE tablet Urology 1 TABLET BY 1 TABLET BY TAKE 1 MOUTH EVERY MOUTH EVERY TABLET BY DAY DAY MOUTH EVERY DAY doxazosin 4 doxazosin 4 No doxazosin [place] mg tablet mg tablet 4 mg [facility] TAKE 1/2 TAKE 1/2 tablet Urolo gy TABLET BY TABLET BY TAKE 1/2 MOUTH EVERY MOUTH EVERY TABLET BY DAY DAY MOUTH EVERY DAY furosemide furosemide No furosemide [place] 20 mg 20 mg 20 mg [facility] tablet TAKE tablet TAKE tablet Urology 1 TABLET BY 1 TABLET BY TAKE 1 MOUTH EVERY MOUTH EVERY TABLET BY DAY DAY MOUTH EVERY DAY omeprazole omeprazole No omeprazole [place] 20 mg 20 mg 20 mg [facility] tablet,yissel tablet,yissel tablet,del Urology yed release yed release ayed Take by Take by release oral route. oral route. Take by oral route. simvastatin simvastatin No simvastati [place] 20 mg 20 mg n 20 mg [facility] tablet TAKE tablet TAKE tablet Urology 1/2 TABLET 1/2 TABLET TAKE 1/2 BY MOUTH BY MOUTH TABLET BY EVERY DAY EVERY DAY MOUTH IN THE IN THE EVERY DAY EVENING EVENING IN THE EVENING telmisartan telmisartan No telmisarta [place] 80 mg 80 mg n 80 mg [facility] tablet TAKE tablet TAKE tablet Urology 1 TABLET BY 1 TABLET BY TAKE 1 MOUTH EVERY MOUTH EVERY TABLET BY DAY DAY MOUTH EVERY DAY albuterol albuterol No albuterol [place] sulfate HFA sulfate HFA sulfate [facility] 90 90 HFA 90 Urology mcg/actuati mcg/actuati mcg/actuat on aerosol on aerosol ion inhaler inhaler aerosol INHALE 1 INHALE 1 inhaler PUFF BY PUFF BY INHALE 1 MOUTH EVERY MOUTH EVERY PUFF BY 4 HOURS 4 HOURS MOUTH NEEDED NEEDED EVERY 4 HOURS NEEDED aspirin 81 aspirin 81 No 1capsul Q1D aspirin 81 [place] mg capsule mg capsule e(s) mg capsule [facility] Take 1 Take 1 Take 1 Urology capsule capsule capsule every day every day every day by oral by oral by oral route. route. route. carvedilol carvedilol No carvedilol [place] 25 mg 25 mg 25 mg [facility] tablet TAKE tablet TAKE tablet Urology 1 TABLET BY 1 TABLET BY TAKE 1 MOUTH TWICE MOUTH TWICE TABLET BY DAILY WITH DAILY WITH MOUTH FOOD FOOD TWICE DAILY WITH FOOD clonidine clonidine No clonidine [place] HCl 0.1 mg HCl 0.1 mg HCl 0.1 mg [facility] tablet TAKE tablet TAKE tablet Urology 1 TABLET BY 1 TABLET BY TAKE 1 MOUTH EVERY MOUTH EVERY TABLET BY DAY DAY MOUTH EVERY DAY doxazosin 4 doxazosin 4 No doxazosin [place] mg tablet mg tablet 4 mg [facility] TAKE 1/2 TAKE 1/2 tablet Urolo gy TABLET BY TABLET BY TAKE 1/2 MOUTH EVERY MOUTH EVERY TABLET BY DAY DAY MOUTH EVERY DAY furosemide furosemide No furosemide [place] 20 mg 20 mg 20 mg [facility] tablet TAKE tablet TAKE tablet Urology 1 TABLET BY 1 TABLET BY TAKE 1 MOUTH EVERY MOUTH EVERY TABLET BY DAY DAY MOUTH EVERY DAY meloxicam meloxicam No meloxicam [place] 7.5 mg 7.5 mg 7.5 mg [facility] tablet tablet tablet Urology mupirocin 2 mupirocin 2 No mupirocin [place] % topical % topical 2 % [facility] ointment ointment topical Urol ogy APPLY TO APPLY TO ointment THE THE APPLY TO AFFECTED AFFECTED THE AREA ON AREA ON AFFECTED GROIN TWICE GROIN TWICE AREA ON DAILY FOR 2 DAILY FOR 2 GROIN WEEKS WEEKS TWICE DAILY FOR 2 WEEKS omeprazole omeprazole No omeprazole [place] 20 mg 20 mg 20 mg [facility] tablet,yissel tablet,yissel tablet,del Urology yed release yed release ayed Take by Take by release oral route. oral route. Take by oral route. simvastatin simvastatin No simvastati [place] 20 mg 20 mg n 20 mg [facility] tablet TAKE tablet TAKE tablet Urology 1/2 TABLET 1/2 TABLET TAKE 1/2 BY MOUTH BY MOUTH TABLET BY EVERY DAY EVERY DAY MOUTH IN THE IN THE EVERY DAY EVENING EVENING IN THE EVENING telmisartan telmisartan No telmisarta [place] 80 mg 80 mg n 80 mg [facility] tablet TAKE tablet TAKE tablet Urology 1 TABLET BY 1 TABLET BY TAKE 1 MOUTH EVERY MOUTH EVERY TABLET BY DAY DAY MOUTH EVERY DAY aspirin 81 aspirin 81 No 1capsul Q1D aspirin 81 [place] mg capsule mg capsule e(s) mg capsule [facility] Take 1 Take 1 Take 1 Urology capsule capsule capsule every day every day every day by oral by oral by oral route. route. route. carvedilol carvedilol No carvedilol [place] 25 mg 25 mg 25 mg [facility] tablet TAKE tablet TAKE tablet Urology 1 TABLET BY 1 TABLET BY TAKE 1 MOUTH TWICE MOUTH TWICE TABLET BY DAILY WITH DAILY WITH MOUTH FOOD FOOD TWICE DAILY WITH FOOD clonidine clonidine No clonidine [place] HCl 0.1 mg HCl 0.1 mg HCl 0.1 mg [facility] tablet TAKE tablet TAKE tablet Urology 1 TABLET BY 1 TABLET BY TAKE 1 MOUTH EVERY MOUTH EVERY TABLET BY DAY DAY MOUTH EVERY DAY doxazosin 4 doxazosin 4 No doxazosin [place] mg tablet mg tablet 4 mg [facility] TAKE 1/2 TAKE 1/2 tablet Urolo gy TABLET BY TABLET BY TAKE 1/2 MOUTH EVERY MOUTH EVERY TABLET BY DAY DAY MOUTH EVERY DAY furosemide furosemide No furosemide [place] 20 mg 20 mg 20 mg [facility] tablet TAKE tablet TAKE tablet Urology 1 TABLET BY 1 TABLET BY TAKE 1 MOUTH EVERY MOUTH EVERY TABLET BY DAY DAY MOUTH EVERY DAY meloxicam meloxicam No meloxicam [place] 15 mg 15 mg 15 mg [facility] tablet TAKE tablet TAKE tablet Urology 1 TABLET BY 1 TABLET BY TAKE 1 MOUTH DAILY MOUTH DAILY TABLET BY WITH FOOD WITH FOOD MOUTH DAILY WITH FOOD metoclopram metoclopram No metoclopra [place] anjelica 10 mg anjelica 10 mg mide 10 mg [facility] tablet TAKE tablet TAKE tablet Urology 3 TABLETS 3 TABLETS TAKE 3 BY MOUTH BY MOUTH TABLETS BY DIRECTED BY DIRECTED BY MOUTH COLONOSCOPY COLONOSCOPY DIRECTED PREP PACKET PREP PACKET BY COLONOSCOP Y PREP PACKET NuLev 0.125 NuLev 0.125 No NuLev [place] mg mg 0.125 mg [facility] disintegrat disintegrat disintegra Urology ing tablet ing tablet ting DISSOLVE 1 DISSOLVE 1 tablet TO 2 TO 2 DISSOLVE 1 TABLETS ON TABLETS ON TO 2 THE TONGUE THE TONGUE TABLETS ON EVERY 4 TO EVERY 4 TO THE TONGUE 6 HOURS 6 HOURS EVERY 4 TO NEEDED NEEDED 6 HOURS NEEDED omeprazole omeprazole No omeprazole [place] 20 mg 20 mg 20 mg [facility] tablet,yissel tablet,yissel tablet,del Urology yed release yed release ayed Take by Take by release oral route. oral route. Take by oral route. simvastatin simvastatin No simvastati [place] 20 mg 20 mg n 20 mg [facility] tablet TAKE tablet TAKE tablet Urology 1/2 TABLET 1/2 TABLET TAKE 1/2 BY MOUTH BY MOUTH TABLET BY EVERY DAY EVERY DAY MOUTH IN THE IN THE EVERY DAY EVENING EVENING IN THE EVENING telmisartan telmisartan No telmisarta [place] 80 mg 80 mg n 80 mg [facility] tablet TAKE tablet TAKE tablet Urology 1 TABLET BY 1 TABLET BY TAKE 1 MOUTH EVERY MOUTH EVERY TABLET BY DAY DAY MOUTH EVERY DAY Aspir-81 Aspir-81 No Aspir-81 J[facility] ston [facility] carvedilol carvedilol No carvedilol [place] 25 mg 25 mg 25 mg [facility] tablet TAKE tablet TAKE tablet Urology 1 TABLET BY 1 TABLET BY TAKE 1 MOUTH TWICE MOUTH TWICE TABLET BY DAILY WITH DAILY WITH MOUTH FOOD FOOD TWICE DAILY WITH FOOD clonidine clonidine No clonidine [place] HCl 0.1 mg HCl 0.1 mg HCl 0.1 mg [facility] tablet TAKE tablet TAKE tablet Urology 1 TABLET BY 1 TABLET BY TAKE 1 MOUTH EVERY MOUTH EVERY TABLET BY DAY DAY MOUTH EVERY DAY doxazosin 4 doxazosin 4 No doxazosin [facility] mg tablet mg tablet 4 mg [facility] TAKE 1 TAKE 1 tablet Urology TABLET BY TABLET BY TAKE 1 MOUTH EVERY MOUTH EVERY TABLET BY DAY DAY MOUTH EVERY DAY furosemide furosemide No furosemide [place] 20 mg 20 mg 20 mg [facility] tablet TAKE tablet TAKE tablet Urology 1 TABLET BY 1 TABLET BY TAKE 1 MOUTH EVERY MOUTH EVERY TABLET BY DAY DAY MOUTH EVERY DAY simvastatin simvastatin No simvastati [place] 20 mg 20 mg n 20 mg [facility] tablet TAKE tablet TAKE tablet Urology 1/2 TABLET 1/2 TABLET TAKE 1/2 BY MOUTH BY MOUTH TABLET BY EVERY DAY EVERY DAY MOUTH IN THE IN THE EVERY DAY EVENING EVENING IN THE EVENING telmisartan telmisartan No telmisarta [place] 80 mg 80 mg n 80 mg [facility] tablet TAKE tablet TAKE tablet Urology 1 TABLET BY 1 TABLET BY TAKE 1 MOUTH EVERY MOUTH EVERY TABLET BY DAY DAY MOUTH EVERY DAY Aspir-81 Aspir-81 No Aspir-81 J[facility]erson ston [facility] carvedilol carvedilol No carvedilol [place] 25 mg 25 mg 25 mg [facility] tablet TAKE tablet TAKE tablet Urology 1 TABLET BY 1 TABLET BY TAKE 1 MOUTH TWICE MOUTH TWICE TABLET BY DAILY WITH DAILY WITH MOUTH FOOD FOOD TWICE DAILY WITH FOOD clonidine clonidine No clonidine [place] HCl 0.1 mg HCl 0.1 mg HCl 0.1 mg [facility] tablet TAKE tablet TAKE tablet Urology 1 TABLET BY 1 TABLET BY TAKE 1 MOUTH EVERY MOUTH EVERY TABLET BY DAY DAY MOUTH EVERY DAY doxazosin 4 doxazosin 4 No doxazosin [place] mg tablet mg tablet 4 mg [facility] TAKE 1/2 TAKE 1/2 tablet Urolo gy TABLET BY TABLET BY TAKE 1/2 MOUTH EVERY MOUTH EVERY TABLET BY DAY DAY MOUTH EVERY DAY furosemide furosemide No furosemide [place] 20 mg 20 mg 20 mg [facility] tablet TAKE tablet TAKE tablet Urology 1 TABLET BY 1 TABLET BY TAKE 1 MOUTH EVERY MOUTH EVERY TABLET BY DAY DAY MOUTH EVERY DAY simvastatin simvastatin No simvastati [place] 20 mg 20 mg n 20 mg [facility] tablet TAKE tablet TAKE tablet Urology 1/2 TABLET 1/2 TABLET TAKE 1/2 BY MOUTH BY MOUTH TABLET BY EVERY DAY EVERY DAY MOUTH IN THE IN THE EVERY DAY EVENING EVENING IN THE EVENING telmisartan telmisartan No telmisarta [place] 80 mg 80 mg n 80 mg [facility] tablet TAKE tablet TAKE tablet Urology 1 TABLET BY 1 TABLET BY TAKE 1 MOUTH EVERY MOUTH EVERY TABLET BY DAY DAY MOUTH EVERY DAY Immunizations Ordered Immunization Filled Immunization Date Status Commen ts Source Name Name pneumococcal pneumococcal 2020-05-02 Completed [facility] tro polysaccharide PPV23 polysaccharide PPV23 00:00:00 Urology pneumococcal pneumococcal 2020-05-02 Completed [facility] tro polysaccharide PPV23 polysaccharide PPV23 00:00:00 Urology pneumococcal pneumococcal 2020-05-02 Completed [place] [facility] tro polysaccharide PPV23 polysaccharide PPV23 00:00:00 Urology pneumococcal pneumococcal 2020-05-02 Completed [facility] tro polysaccharide PPV23 polysaccharide PPV23 00:00:00 Urology pneumococcal pneumococcal 2020-05-02 Completed [facility] tro polysaccharide PPV23 polysaccharide PPV23 00:00:00 Urology pneumococcal pneumococcal 2020-05-02 Completed [facility] tro polysaccharide PPV23 polysaccharide PPV23 00:00:00 Urology influenza, influenza, 2020-01-31 [facility], [facility]:00 Urology quadrivalent quadrivalent influenza, influenza, 2020-01-31 [facility], injectable, 00:00:00 Urology quadrivalent quadrivalent influenza, influenza, 2020-01-31 Com[facility], injectable, 00:00:00 Urology quadrivalent quadrivalent influenza, influenza, 2020-01-31 Com[facility], injectable, 00:00:00 Urology quadrivalent quadrivalent influenza, influenza, 2020-01-31 Com[facility] injectable, 00:00:00 Urology quadrivalent quadrivalent influenza, influenza, 2020-01-31 Com[facility], injectable, 00:00:00 Urology quadrivalent quadrivalent influenza, influenza, 2019-02-15 Com[facility], injectable, 00:00:00 Urology quadrivalent quadrivalent influenza, influenza, 2019-02-15 Completed [facility], injectable, 00:00:00 Urology quadrivalent quadrivalent influenza, influenza, 2019-02-15 Completed [facility], injectable, 00:00:00 Urology quadrivalent quadrivalent influenza, influenza, 2019-02-15 Completed [facility], injectable, 00:00:00 Urology quadrivalent quadrivalent influenza, influenza, 2019-02-15 Completed [facility], injectable, 00:00:00 Urology quadrivalent quadrivalent influenza, influenza, 2019-02-15 Completed [facility], injectable, 00:00:00 Urology quadrivalent quadrivalent influenza, influenza, 2018-01-19 Completed [place] [facility] injectable, injectable, 00:00:00 Urology quadrivalent quadrivalent influenza, influenza, 2018-01-19 [facility] inject[facility], 00:00:00 Urology quadrivalent quadrivalent influenza, influenza, 2018-01-19 Completed [place] [facility] injectable, injectable, 00:00:00 Urology quadrivalent quadrivalent influenza, influenza, 2018-01-19 [facility], injectable, 00:00:00 Urology quadrivalent quadrivalent influenza, influenza, 2018-01-19 Com[facility], injectable, 00:00:00 Urology quadrivalent quadrivalent influenza, influenza, 2018-01-19 [facility], injectable, 00:00:00 Urology quadrivalent quadrivalent Vital Signs Vital Name Observation Time Observation Value Comments Source BMI (Body Mass 2022-12-25 00:00:00 28.7 kg/m2 [place] [facility] Index) Urology BP Diastolic 2022-12-25 00:00:00 62 mm[Hg] [facility] Height 2022-12-25 00:00:00 70 [in_i] [facility] Body Weight 2022-12-25 00:00:00 200 [lb_av] [facility] BP Systolic 2022-12-25 00:00:00 133 mm[Hg] [facility] BP Diastolic 2022-06-25 00:00:00 72 mm[Hg] [facility] Height 2022-06-25 00:00:00 70 [in_i] [facility] BMI (Body Mass 2022-06-25 00:00:00 28.7 kg/m2 [place] Index) Urology BP Systolic 2022-06-25 00:00:00 129 mm[Hg] [facility] Body Weight 2022-06-25 00:00:00 200 [lb_av] [facility] BP Diastolic 2022-01-02 00:00:00 68 mm[Hg] [facility] Height 2022-01-02 00:00:00 70 [in_i] [facility] BMI (Body Mass 2022-01-02 00:00:00 28.7 kg/m2 [place] Index) Urology BP Systolic 2022-01-02 00:00:00 134 mm[Hg] [facility] Weight 2022-01-02 00:00:00 200 [lb_av] [facility] BP Diastolic 2021-06-26 00:00:00 68 mm[Hg] [facility] Height 2021-06-26 00:00:00 70 [in_i] [facility] BMI (Body Mass 2021-06-26 00:00:00 29.3 kg/m2 [place] [facility]) Urology BP Systolic 2021-06-26 00:00:00 132 mm[Hg] [facility] Body Weight 2021-06-26 00:00:00 204 [lb_av] [facility] BP Diastolic 2020-12-27 00:00:00 68 mm[Hg] [facility] Height 2020-12-27 00:00:00 70 [in_i] [facility] BMI (Body Mass 2020-12-27 00:00:00 28.7 kg/m2 [place] Index) Urology BP Systolic 2020-12-27 00:00:00 126 mm[Hg] [facility] Body Weight 2020-12-27 00:00:00 200 [lb_av] [facility] WEIGHT 2020-01-26 09:20:00 95.4 kg Heart rate 2022-10-20 17:56:34 78 /min [facility] Oxygen saturation in 2022-10-20 17:56:34 97 /min [facility] Arterial blood by Pulse oximetry Systolic blood 2022-10-20 17:54:11 135 mm[Hg] [facility] pressure Diastolic blood 2022-10-20 17:54:11 58 mm[Hg] [facility] pressure Body temperature 2022-10-20 17:54:11 37.06 Nely [facility] Respiratory rate 2022-10-20 17:54:11 18 /min [facility] Body height 2022-10-20 17:54:11 175.3 cm [facility] Body weight 2022-10-20 17:54:11 103.42 kg [facility] BMI 2022-10-20 17:54:11 33.67 kg/m2 [facility] Procedures Procedure Date / Time Performing Clinician Source Performed [place] INJECTION 1 TENDON 2022-12-30 16:31:59 Betzaida Hunter [facility] SHEATH/LIGAMENT APONEUROSIS XR KUB KIDNEY URETER 2022-12-25 16:36:00 Abimael Young [facility] BLADDER XR, abdomen 2022-12-25 00:00:00 [facility] Urology COVID-19, INFLUENZA A&B, 2022-10-20 17:57:00 Aleja Alston [facility] AND RSV QUALITATIVE RT-PCR [place] INJECTION 1 TENDON 2022-09-11 15:09:48 Betzaida Hunter [facility] SHEATH/LIGAMENT APONEUROSIS XR WRIST 3+ VW RIGHT 2022-08-09 19:45:54 Jefferson Diaz [facility] SPLINT APPLICATION 2022-08-09 19:34:10 Jefferson Diaz [facility] CT, abdomen + pelvis, 2022-06-25 00:00:00 [facility] w/o contrast Urology US DUPLEX VENOUS LOWER 2022-01-24 19:30:00 Deepika Pelletier Valery [facility] EXTREMITY REFLUX BILATERAL XR, abdomen 2021-06-26 00:00:00 [facility] Colonoscopy 2019-06-20 00:00:00 [facility] Removal of Gallbladder 2017-09-02 00:00:00 [place] [facility] GI-Cholecystectomy (Gall 2017-04-21 00:00:00 Jeferson hardikn [facility] U[facility] Diagnostic Colonoscopy 2012-04-21 00:00:00 [place] [facility] - Needle Biopsy 2011-04-21 00:00:00 [facility] Prostate Urology GI- Bowel Resection 2002-04-21 00:00:00 [facility] - Circumcision 1997-04-21 00:00:00 [facility] U[facility] MUSCU-Back Surgery [facility] GI- Colon Resection [facility] Plan of Care Planned Activity Planned Date Details Comments Source Future Scheduled Test 2022-12-31 [facility] 09:46:25 malignant neoplasm of colon (procedure) [code = 704332649] Future Scheduled Test 2022-12-31 [facility] 09:46:25 malignant neoplasm of colon (procedure) [code = 538374386] Future Scheduled Test 2022-12-31 [facility] 09:46:25 malignant neoplasm of colon (procedure) [code = 172771552] Future Scheduled Test 2022-12-31 Hepatitis C screening [facility] 09:46:25 (procedure) [code = 114245745] Future Scheduled Test 2022-12-31 65+ PNEUMOCOCCAL [facility] 09:46:25 VACCINE (2 - PCV) [code = 65+ PNEUMOCOCCAL VACCINE (2 - PCV)] Future Scheduled Test 2022-12-31 [facility] 09:46:25 malignant neoplasm of colon (procedure) [code = 315079847] Future Scheduled Test 2022-12-31 [facility] 09:46:25 malignant neoplasm of colon (procedure) [code = 926973059] Future Scheduled Test 2022-12-31 COVID-19 VACCINE (5 - [facility] 09:46:25 Moderna series) [code = COVID-19 VACCINE ([facility] Moderna series)] Future Scheduled Test 2022-12-[address] [facility] 09:46:25 (#1) [code = INFLUENZA VACCINE (#1)] Diagnostic Test 2022-12-25 PSA, total + free, [place] Pending 00:00:00 serum or plasma [code Urolog y = PSA, total + free, serum or plasma] Diagnostic Test 2022-12-25 testosterone, total, [place] Pending 00:00:00 serum [code = Urology testosterone, total, serum] Diagnostic Test 2022-12-25 urinalysis, dipstick [place] [facility] Pending 00:00:00 [code = urinalysis, Urology dipstick] Future Appointment 2023-12-26 Abimael Young, [place] [facility] 00:00:00 [address] [facility] [address]; , [place] [address] Encounters Start End Encounter Admission Attending Care Care Encounter Source Date/Time Date/Time Type Type Clinicians Facility Department ID 2022-12-31 2022-12-31 Outpatient Jhonathan [facility] [id number] [place] 00:00:00 00:00:00 [address] [facility] 2022-12-30 2022-12-30 Office [place], 1.2.840.1 [id number] Methodi 10:30:00 11:17:20 Visit Betzaida Walters 10306.1.[address] 3.430.2.7 Hospit a .3.761602 l .8 2022-12-30 2022-12-30 Outpatient [facility] [id number] [place] 00:00:00 00:00:00 BETZAIDA Alba [facility] 2022-12-25 2022-12-25 Hospital Clive 1.2.840.1 [id number] Methodi 11:15:00 23:59:00 Encounter Abimael 04863.1.[address] 3.430.2.7 Hospit a .3.323095 l .8 2022-12-25 2022-12-25 Abimael [facility] [place] [id number] Replaced by [facility] 00:00:00 00:00:00 Chris Young MD: [address] [facility] Urology Johnny Urology [facility] [address] [facility], [place] [address] , Ph. 2022-12-25 2022-12-25 Transcribe Clive 1.2.840.1 [id number] Methodi 00:00:00 00:00:00 Orders Abimael [address]69.1.[address] 3.430.2.7 Hospit a .3.444239 l .8 2022-12-25 2022-12-25 Outpatient CLIVE [facility] [id number] [place] 00:00:00 00:00:00 [address] [facility] 2022-10-20 2022-10-20 Emergency Terra 1.2.840.1 [id number] Methodi 12:50:00 13:12:00 [address] 3.430.2.7 Hospit a .3.515624 l .8 2022-10-20 2022-10-20 Emergency TERRA [facility] 064 [id number] [place] 00:00:00 00:00:00 ALEJA BERTRAND [address] 2022-09-11 2022-09-11 Office [place], 1.2.840.1 [id number] Methodi 10:00:00 10:11:17 Visit Betzaida Walters 22557.1.[address] 3.430.2.7 Hospit a .3.479812 l .8 2022-09-11 2022-09-11 Outpatient [facility] [id number] [place] 00:00:00 00:00:00 BETZAIDA Wendy [facility] 2022-08-09 2022-08-09 Emergency Raheel, 1.2.840.1 [id number] Methodi 13:53:00 16:17:00 Slava Fisher [address]63.1.[address] 3.430.2.7 Hospit a .3.581705 l .8 2022-08-09 2022-08-09 Emergency RAHEEL, [facility] [id number] [place] 00:00:00 00:00:00 SAM[address]QUEENIE [address] 2022-08-09 2022-08-09 Travel 1.2.840.1 1.2.798.087 [id number] Methodi 00:00:00 00:00:[address] 3.430.2.7 0.2.7.3.698 spita .3.549432 084.8 l .8 2022-06-25 2022-06-25 [facility] [id number] [place] 00:00:00 00:00:00 [address]10 [facility] 2022-06-25 2022-06-25 Outpatient [place]on_M [facility] [id number] [place] 00:00:00 00:00:00 56691 [facility] 2022-06-25 2022-06-25 Outpatient [place]_M [facility] U [id number] [place] 00:00:00 00:00:00 54779 [facility] 2022-06-25 2022-06-25 Outpatient Jhonathan [facility] [id number] [place] 00:00:00 00:00:00 92785 [facility] 2022-06-25 2022-06-25 Abimael [facility] [place] [id number] Shaina liu 00:00:00 00:00:00 Chris Young MD: [address] [facility] Johnny Urology [facility] - [address], [place] [address] , Ph. 2022-04-02 2022-04-02 Outpatient Jhonathan [facility] [id number] [place] 00:00:00 00:00:00 64663 [facility] 2022-02-01 2022-02-01 Office Jr 1.2.840.1 [id number] Methodi 10:00:00 13:37:35 Visit Deepika Ajne 82819.1.[address] 3.430.2.7 Hospit a .3.908223 l .8 2022-02-01 2022-02-01 Outpatient JR [facility] [id number] [place] 00:00:00 00:00:00 [address]EEPIKA [address] [facility] [address] 2022-01-24 2022-01-24 [facility] Pelletier 1.2.840.1 [id number] Methodi 12:42:22 23:59:00 Encounter Deepika Rasmussen 11366.1.[address] 3.430.2.7 Hospit a .3.025868 l .8 2022-01-24 2022-01-24 [facility] [id number] [place] 00:00:00 00:00:00 [address]EEPI[address] 2022-01-24 2022-01-24 Travel 1.2.840.1 1.2.878.911 [id number] Methodi 00:00:00 00:00:[address] 3.430.2.7 0.2.7.3.698 Ho spita .3.292459 084.8 l .8 2022-01-23 2022-01-23 Outpatient DARIEL MCARTHUR MDA MDA [id number] 08:41:46 23:59:00 FLORECITA elizabeth 2022-01-23 2022-01-23 Outpatient ADRIEL ANNE MDA MDA [id number] 05:53:59 05:53:59 ADAM elizabeth 2022-01-09 2022-01-09 Office Pelletier 1.2.840.1 [id number] Methodi 10:00:00 11:02:13 Visit Deepika Rasmussen [address]8480.1.[address] 3.430.2.7 Hospit a .3.659894 l .8 2022-01-09 2022-01-09 Outpatient JR [facility] [id number] [place] 00:00:00 00:00:[address] 2022-01-09 2022-01-09 Travel 1.2.840.1 1.2.988.326 [id number] Methodi 00:00:00 00:00:[address] 3.430.2.7 0.2.7.3.698 Ho spita .3.934167 084.8 l .8 2022-01-02 2022-01-02 Outpatient KendrickArthur [facility] [id number] [place] 00:00:00 00:00:00 [id number] [facility] 2022-01-02 2022-01-02 Abimael [facility] [place] [id number] noe 00:00:00 00:00:00 Chris Young MD: [address] [facility] Johnny Urology [facility] - [address], [place] [address] , Ph. 2022-01-02 2022-01-02 Outpatient Clive [facility] [id number] 00:00:00 00:00:00 Abimael [id number] 2022-01-01 2022-01-01 Outpatient Clive_M [facility] U [id number] [place] 00:00:00 00:00:00 73186 [facility] 2021-12-11 2021-12-11 Outpatient JR [facility] [id number] [place] 00:00:00 00:00:00 DEEPIKA [address] 2021-12-11 2021-12-11 Outpatient JR [facility] [id number] [place] 00:00:00 00:00:00 DEEPIKA [address] 2021-08-14 2021-08-14 Outpatient Antoinetteon_M [facility] [address] [place] 02:01:00 02:01:00 [facility] 2021-06-27 2021-06-27 Outpatient Kikoitton_M [facility] U [address] [place] 11:19:00 11:19:00 [facility] 2021-06-26 2021-06-26 Outpatient Antoinetteon_M [facility] U [address] [place] 11:10:00 11:10:00 [facility] 2021-06-26 2021-06-26 Outpatient Clive, U U 2004e [id number] 00:00:00 00:00:00 Abimael [id number] 2021-06-26 2021-06-26 Outpatient Clive, U U [id number] 00:00:00 00:00:00 Abimael amadoec-a [id number] 2021-06-26 2021-06-26 Abimael [facility] [place] [facility] [id number] 00:00:00 Chris Young MD: [address] [facility] [place] [facility] - [address], [place] [address] , Ph. 2021-06-26 2021-06-26 Outpatient CLIVE [facility] [id number] [place] 00:00:00 00:00:00 ABIMAEL Ellis[address] [facility] 2021-03-09 2021-03-09 Outpatient Lew[place]on_M [facility] [address] [place] 12:24:00 12:24:00 67572 [facility] 2021-02-11 2021-02-11 Outpatient Lewitton_M HMU [facility] [address] [place] 12:47:00 12:47:00 00924 [facility] 2021-01-07 2021-01-07 Outpatient Lewitton_M HMU [facility] [address] [place] 12:39:00 12:39:00 19110 [facility] 2021-01-02 2021-01-02 Outpatient Lewitton_M HMU [facility] [address] [place] 02:53:00 02:53:00 53278 [facility] 2020-12-27 2020-12-27 Outpatient Lewitton_M HMU [facility] [address] [place] 12:14:00 12:14:00 11254 [facility] 2020-12-27 2020-12-27 Outpatient WILLOW YoungU U [id number] 00:00:00 00:00:00 Abimael [id number] 2020-12-27 2020-12-27 [facility] [place] - [id number] Shaina liu 00:00:00 00:00:00 Kikogilma Chris nesbitt MD: [address] [facility] [place] [facility], [place] [address] , Ph. 2020-09-14 2020-09-14 Outpatient Antoinetteon_M [facility] U [address] [place] 04:48:00 04:48:00 91499 [facility] 2020-01-26 2020-01-26 Outpatient ADRIEL MCARTHUR MDA MDA [id number] 09:18:02 23:59:00 FLORECITA elizabeth 2020-01-26 2020-01-26 Outpatient ADRIEL REICH MDA MDA [id number] 06:46:09 06:46:09 ANNA elizabeth Results Test Description Test Time Test Comments Results Result Comments Source Influenza virus A and B and 2022-10-20 13:36:18 Test Item Value Reference Range Interpretation Comme nts SARS-CoV-2 (COVID-19) RNA [Presence] in Respiratory specimen by ARMAAN Detected with probe detection (test code = 82677-9) Whether patient resides in a congregate care setting (test code = N o 05693-9) Date and time of symptom onset (test code = 80009-2) Unknown Whether the patient was hospitalized for condition of interest (lisa t No code = 25596-3) Whether the patient was admitted to intensive care unit (ICU) for N o condition of interest (test code = 41858-9) Whether patient is employed in a healthcare setting (test code = No 30822-7) Whether the patient has symptoms related to condition of interest N o (test code = 45784-1) status (test code = 21030-7) No [facility] (PROSTATE)2021-02-14 08:27:13 [facility] : 1955 Sex: [employer] IND[employer] TION: R97.20, Elevated prostate specific antigen PSA. Negative biopsy. PSA 5.5.MODALITY: Door 6 3T MRITECHNIQUE: Multiplanar, multiparametric MRI of the prostate is performed with T1, T2 and diffusion weighted imaging. Quantitative analysis is performed with crossvertiseaCAD. IV contrast is administered, 20 .0 ml Dotarem. Dynamic post-contrast imaging with crossvertiseaCAD quantitative analysis are accomplished.00650 MR DynaCADIMPRESSION:No lesions targeted. No evidence of aggressive or extra prostatic malignancy.Moderate BPH.PI-RADS 1: Most probably benign.FINDINGS:COMPARISON: None.Normal regional marrow signalis observed. No suspicious osseous metastatic lesions.Bilateral pelvic sidewall lymph nodes measure 6 mm in short axis. No suspicious common iliac, internal iliac, external iliac, inguinal or blessing-prostatic lymph nodes.Regional bowel is unremarkable. No mural or intraluminal bladder mass. Anterior abdominal wall and pelvic floor are unremarkable. No evidence of ascites.Estimated prostate volume is 110.46 ml. No suspicious T2 hypointense lesions, areas of restricted diffusion or abnormal enhancement.The transitional zone is hypertrophic, heterogeneous and nodular, consistent with BPH.Seminal vesicles exhibit normal signal intensity. Neurovascular bundles are symmetric in appearance without definite tumor involvement. The prostate capsule is smooth in contour.MRI PELVIS W/WO (PROSTATE)CLINICAL INDICATION: R97.20 Elevated prostate specific antigenMODALITY: Siemens Skyra 3.0 Rebeca MRITECHNIQUE: T2 sagittal and axial, T1 axial, T1 coronal fat sat, STIR, diffusion and dynamic contrast enhanced imaging are performed. Quantitative analysis is performed with crossvertiseaCAD. IV contrast is administered, 15.0 ml Multihance Dynamic post-contrast imaging with DynaCAD quantitative analysis are accomplished.90866 MR DynaCADIMPRESSION:No suspicious focal lesions are targeted. [...]
--- NOTE | 2023-01-02 04:17 | EDPHYS ---
Physician Documentation [facility] Name: Mahin Alonzo Age: 67 yrs Sex: Male : 1955 Arrival Date: 01/02/2023 Time: 03:15 Bed 5 Private MD: Nini Velasquez C ED Physician Brian Momin HPI: 01/02 03:26 This 67 yrs old Male presents to ER via Ambulatory with complaints of Urinary Problem. rn 03:26 The patient presents with urinary symptoms, retention, unable to void. Onset: The rn symptoms/episode began/occurred last night. Modifying factors: The symptoms are alleviated by nothing, the symptoms are aggravated by pressure. Severity of symptoms: At their worst the symptoms were moderate, in the emergency department the symptoms are unchanged. The patient has experienced a previous episode. The patient has been recently seen by a physician:. Patient reports diagnosed 4 days ago with prostatitis, currently taking antibiotics, no fever or chills. No vomiting. Had been doing well and noticed a little bit of blood. Unable to void since last night with increased lower abdominal pain that he attributes to bladder fullness. Patient also just recently started Flomax.. Historical: - Allergies: 03:26 drugs w/ sulfer; as6 03:26 Sulfa (Sulfonamide Antibiotics); as6 03:26 Motrin; as6 - PMHx: 03:26 Gastric Reflux; Hyperlipidemia; Hypertension; knee pain; as6 - PSHx: 03:26 Cholecystectomy; back; as6 - Immunization history:: Adult Immunizations up to date. - Social history:: Smoking status: Patient denies any tobacco usage or history of. - Family history:: not pertinent. - Hospitalizations: : No recent hospitalization is reported. ROS: 03:26 Constitutional: Negative for fever, chills, and weight loss, Cardiovascular: Negative rn for chest pain, palpitations, and edema, Respiratory: Negative for shortness of breath, cough, wheezing, and pleuritic chest pain, Abdomen/GI: Positive for lower abdominal fullness and pain MS/Extremity: Negative for injury and deformity, Skin: Negative for injury, rash, and discoloration, Neuro: Negative for headache, weakness, numbness, tingling, and seizure. Exam: 03:26 Constitutional: This is a well developed, well nourished patient who is awake, alert, rn and in no acute distress. Ambulatory to room without assistance or distress Cardiovascular: Regular rate and rhythm. No pulse deficits. Respiratory: No increased work of breathing, no retractions or nasal flaring. Abdomen/GI: Soft, suprapubic fullness and tenderness Vital Signs: 03:23 BP 166 / 82; Pulse 84; Resp 18 S; Temp 98.3(TE); Pulse Ox 97% on R/A; Weight 103.42 kg as6 (R); Height 5 ft. 10 in. (R); Pain 9/10; 04:00 BP 164 / 75; Pulse 74; Resp 16 S; Pulse Ox 97% on R/A; ha1 03:23 Body Mass Index 32.71 (103.42 kg, 177.8 cm) as6 03:23 Pain Scale: Adult as6 MDM: 03:18 Patient medically screened. rn 04:15 Differential diagnosis: urinary retention, prostatitis. Data reviewed: vital signs, rn nurses notes, and as a result, I will discharge patient. Counseling: I had a detailed discussion with the patient and/or guardian regarding the historical points, exam findings, and any diagnostic results supporting the discharge/admit diagnosis, the need for outpatient follow up, to return to the emergency department if symptoms worsen or persist or if there are any questions or concerns that arise at home. Response to treatment: the patient's symptoms have markedly improved after treatment, and as a result, I will discharge patient. Special discussion: I discussed with the patient/guardian in detail that at this point there is no indication for admission to the hospital. It is understood, however, that if the symptoms persist or worsen the patient needs to return immediately for re-evaluation. Based on the history and exam findings, there is no indication for further emergent testing or inpatient evaluation. I discussed with the patient/guardian the need to see the urologist for further evaluation of the symptoms. ED course: Patient markedly improved, afebrile, stable vital signs. No blood in urine. Most likely inflammation in hypertrophy of prostate. Already on antibiotics and has a 14-day course. Only given 5 days of Flomax will give more and follow-up with urology. Return precautions given and understood. 01/02 03:19 Order name: Bladder Scanner; Complete Time: 03:42 rn 01/02 03:26 Order name: Davila; Complete Time: 03:58 rn Administered Medications: 04:35 Drug: Rocephin (cefTRIAXone) IM 1 grams Route: IM; Site: right gluteus; rv 04:52 Follow up: Response: No adverse reaction rv Disposition Summary: 01/02/23 04:17 Discharge Ordered Location: Home rn Problem: new rn Symptoms: have improved rn Condition: Stable rn Diagnosis - Retention of urine, unspecified rn Followup: rn - With: Private Physician - When: 5 - 6 days - Reason: Recheck today's complaints, Re-evaluation by your physician Discharge Instructions: - Discharge Summary Sheet rn - Indwelling Urinary Catheter Care, Adult rn - Acute Urinary Retention, Male rn Forms: - Medication Reconciliation Form rn - Thank You Letter rn - Antibiotic credit intern - Prescription Opioid Use rn - Patient Portal Instructions rn - Leadership Thank You Letter rn Prescriptions: - Flomax 0.4 mg Oral capsule - take 1 capsule by ORAL route every day at bedtime; 14 capsule; Refills: 0, rn Product Selection Permitted Signatures: Brian Momin MD MD rn Vicente, Ronaldo, RN RN Alex Kenney RN RN as6
--- NOTE | 2023-01-02 04:17 | ER ---
Nurse's Notes [facility] Name: Mahin Alonzo Age: 67 yrs Sex: Male : 1955 Arrival Date: 01/02/2023 Time: 03:15 Bed 5 Private MD: Nini Velasquez C Diagnosis: Retention of urine, unspecified Presentation: 01/02 03:23 Chief complaint: Patient states: hasn't been able to urinate since yesterday, recently as6 dx with proctitis. Coronavirus screen: At this time, the client does not indicate any symptoms associated with coronavirus-19. Ebola Screen: No symptoms or risks identified at this time. Initial Sepsis Screen: Does the patient meet any 2 criteria? No. Patient's initial sepsis screen is negative. Does the patient have a suspected source of infection? No. Patient's initial sepsis screen is negative. Risk Assessment: Do you want to hurt yourself or someone else? Patient reports no desire to harm self or others. Onset of symptoms was January 01, 2023. 03:23 Method Of Arrival: Ambulatory as6 03:23 Acuity: SAMEER 4 as6 Historical: - Allergies: 03:26 drugs w/ sulfer; as6 03:26 Sulfa (Sulfonamide Antibiotics); as6 03:26 Motrin; as6 - PMHx: 03:26 Gastric Reflux; Hyperlipidemia; Hypertension; knee pain; as6 - PSHx: 03:26 Cholecystectomy; back; as6 - Immunization history:: Adult Immunizations up to date. - Social history:: Smoking status: Patient denies any tobacco usage or history of. - Family history:: not pertinent. - Hospitalizations: : No recent hospitalization is reported. Screenin:59 Abuse screen: Denies threats or abuse. Denies injuries from another. Nutritional ha1 screening: No deficits noted. Tuberculosis screening: No symptoms or risk factors identified. 04:24 [facility] ED Fall Risk Assessment (Adult) History of falling in the last 3 months, rv including since admission No falls in past 3 months (0 pts) Score/Fall Risk Level 0 - 2 = Low Risk Oriented to surroundings, Maintained a safe environment, Educated pt \T\ family on fall prevention, incl call for assistance when getting out of bed, Assessed \T\ reinforced patient's understanding of fall precautions, Provided non-skid footwear, Hourly rounding (assess needs \T\ fall precautionary measures) done, Used ambulatory aids as needed (educated on \T\ assisted with), Used gait belt as appropriate. Assessment: 03:18 General: Appears uncomfortable, Behavior is calm, cooperative. Pain: Complains of pain ha1 in pelvis Pain currently is 9 out of 10 on a pain scale. Quality of pain is described as pressure. Neuro: Level of Consciousness is awake, alert, obeys commands, Oriented to person, place, time, situation. Respiratory: Airway is patent Respiratory effort is even, unlabored, Respiratory pattern is regular, symmetrical. 03:18 : Reports inability to void. ha1 03:42 Reassessment: bladder scanned performed 740 mL scanned. ha1 Vital Signs: 03:23 BP 166 / 82; Pulse 84; Resp 18 S; Temp 98.3(TE); Pulse Ox 97% on R/A; Weight 103.42 kg as6 (R); Height 5 ft. 10 in. (R); Pain 9/10; 04:00 BP 164 / 75; Pulse 74; Resp 16 S; Pulse Ox 97% on R/A; ha1 03:23 Body Mass Index 32.71 (103.42 kg, 177.8 cm) as6 03:23 Pain Scale: Adult as6 ED Course: 03:17 Patient arrived in ED. mr 03:17 Nini Velasquez MD is Private Physician. mr 03:18 Brian Momin MD is Attending Physician. rn 03:26 Triage completed. as6 03:27 Arm band placed on. as6 03:30 Bennett cath inserted, using sterile technique, 16 Fr., by ne, balloon inflated, to ha1 gravity drainage. 04:17 Abhi Mercado, STEPHANIE is Primary Nurse. rv 04:24 Patient has correct armband on for positive identification. Client placed on continuous rv cardiac and pulse oximetry monitoring. NIBP monitoring applied. 04:24 Provided Education on: bennett catheter. rv 04:34 No provider procedures requiring assistance completed. Patient did not have IV access ha1 during this emergency room visit. Administered Medications: 04:35 Drug: Rocephin (cefTRIAXone) IM 1 grams Route: IM; Site: right gluteus; rv 04:52 Follow up: Response: No adverse reaction rv Medication: 04:24 VIS not applicable for this client. rv Outcome: 04:17 Discharge ordered by . rn 04:34 Discharged to home ambulatory. ha1 04:34 Condition: stable 04:34 Discharge instructions given to patient, Instructed on discharge instructions, follow up and referral plans. medication usage, Demonstrated understanding of instructions, follow-up care, medications, Prescriptions given X 1. 04:52 Patient left the ED. rv Signatures: Steffanie Rice mr Brian Momin MD MD rn Vicente, Ronaldo, RN RN Alex Kenney RN RN as6 Sara Proctor RN RN ha1
[2023-01-02] MEDS ORDERED: LIDOCAINE 1% MPF 2 ML AMPULE ONE (04:31)
[2023-01-02] MEDS ORDERED: WATER FOR INJ,STERILE 10 ML ONE (04:31)
[2023-01-02] MEDS ORDERED: CEFTRIAXONE 1000 MG/VIAL ONE (04:31)
[2023-01-02 04:58] VITALS: TEMP 98.3; O2SAT 97
[2023-01-02 05:00] VITALS: BP 164/75
== END 2023-01-02 04:52 | disposition home or self-care (01) ==
LOC: ER 03:15
DX: R33.9 Retention of urine, unspecified (principal); Z88.1 Allergy status to other antibiotic agents; Z88.2 Allergy status to sulfonamides; Z88.6 Allergy status to analgesic agent
CPT/HCPCS: 51702; 96372; 99284; J0696

== ENCOUNTER 2023-12-05 23:00 | Emergency (ER) | payer OTHER ==
[2023-12-06 00:45] LABS: Absolute Basophils 0.1 K/uL (0-0.5); Absolute Eosinophils 0.3 K/uL (0-0.5); Absolute Lymphocytes (CBC) 2.1 K/uL (0.7-4.9); Absolute Monocytes 0.9 K/uL (0.1-1.3); Absolute Neutrophil 5.3 K/uL (1.8-8.0); Basophils % 0.6 % (0-1.3); Eosinophils % 3.8 % (0-4.4); Hematocrit 33.5 % (39.6-49.0); Hemoglobin 11.5 g/dL (13.6-17.9); Lymphocytes % 24.4 % (15.3-44.8); MCHC 34.4 g/dL (32.0-36.0); MCV 87.3 fL (80-100); MPV 9.5 fL (7.6-11.3); Monocytes % 10.3 % (3.3-12.3); Neutrophils % 60.9 % (41.7-73.7); PT Prothrombin Time 13.1 SECONDS (9.4-12.5); Platelets 197 thou/uL (152-406); Protime INR 1.18; RBC Red Blood Cell Count 3.84 M/uL (4.33-5.43); Red Cell Distribution Width 14.2 % (12.1-15.2)
[2023-12-06 00:51] LABS: Anion Gap 8.6 mEq/L (5.0-15.0); Magnesium 2.1 mg/dL (1.6-2.4); Potassium 3.6 mEq/L (3.5-5.1); Troponin High Sensitivity 5.3 pg/mL (<58.9)
--- NOTE | 2023-12-06 00:59 | ER ---
Nurse's Notes [facility] Name: Mahin Alonzo Age: 68 yrs Sex: Male : 1955 Arrival Date: 12/05/2023 Time: 23:00 Bed 20 Private MD: Diagnosis: Palpitations Presentation: 12/04 23:12 Chief complaint: Patient states: Pt states he has felt 'flutters" in his left chest all tl4 day. Pt denies CP, SOB, diaphoresis, nausea, dizziness. Coronavirus screen: At this time, the client does not indicate any symptoms associated with coronavirus-19. Ebola Screen: No symptoms or risks identified at this time. Initial Sepsis Screen: Does the patient meet any 2 criteria? No. Patient's initial sepsis screen is negative. Does the patient have a suspected source of infection? No. Patient's initial sepsis screen is negative. Risk Assessment: Do you want to hurt yourself or someone else? Patient reports no desire to harm self or others. Onset of symptoms was December 05, 2023 at 09:00. 23:12 Method Of Arrival: Ambulatory tl4 23:12 Acuity: SAMEER 2 tl4 Triage Assessment: 23:15 General: Appears in no apparent distress. Behavior is calm, cooperative. Pain: Denies tl4 pain. EENT: No signs and/or symptoms were reported regarding the EENT system. Neuro: Level of Consciousness is awake, alert, obeys commands, Oriented to person, place, time, situation. Cardiovascular: Reports left chest "flutters" Denies chest pain, lightheadedness, nausea, palpitations, shortness of breath, syncope. Respiratory: Airway is patent Respiratory effort is even, unlabored, Respiratory pattern is regular, symmetrical. GI: No signs and/or symptoms were reported involving the gastrointestinal system. : No signs and/or symptoms were reported regarding the genitourinary system. Derm: No signs and/or symptoms reported regarding the dermatologic system. Musculoskeletal: No signs and/or symptoms reported regarding the musculoskeletal system. Historical: - Allergies: 23:14 Motrin; tl4 23:14 Sulfa (Sulfonamide Antibiotics); tl4 - PMHx: 23:14 Gastric Reflux; Hyperlipidemia; Hypertension; knee pain; tl4 - PSHx: 23:14 back; Cholecystectomy; tl4 - Immunization history:: Adult Immunizations unknown. - Infectious Disease History:: Denies. - Social history:: Smoking status: Patient denies any tobacco usage or history of. Screenin:56 [facility] ED Fall Risk Assessment (Adult) History of falling in the last 3 months, cp4 including since admission No falls in past 3 months (0 pts) Confusion or Disorientation No (0 pts) Intoxicated or Sedated No (0 pts) Impaired Gait No (0 pts) Mobility Assist Device Used No (0 pt) Altered Elimination No (0 pt) Score/Fall Risk Level 0 - 2 = Low Risk Oriented to surroundings, Maintained a safe environment, Assessed \\T\\ reinforced patient's understanding of fall precautions, Hourly rounding (assess needs \\T\\ fall precautionary measures) done. Abuse screen: Denies threats or abuse. Nutritional screening: No deficits noted. Tuberculosis screening: No symptoms or risk factors identified. Assessment: 23:56 General: Appears in no apparent distress. comfortable, Behavior is calm, cooperative, cp4 appropriate for age. Pain: Denies pain. Pain does not radiate. Pain began gradually. Neuro: Level of Consciousness is awake, alert, obeys commands, Oriented to person, place, time, situation. Cardiovascular: Reports palpitations, Rhythm is sinus rhythm. Respiratory: Airway is patent Respiratory effort is even, unlabored. GI: No signs and/or symptoms were reported involving the gastrointestinal system. : No signs and/or symptoms were reported regarding the genitourinary system. EENT: No signs and/or symptoms were reported regarding the EENT system. Derm: No signs and/or symptoms reported regarding the dermatologic system. Musculoskeletal: No signs and/or symptoms reported regarding the musculoskeletal system. Vital Signs: 23:12 BP 157 / 79; Pulse 60; Resp 16; Temp 99.1; Pulse Ox 98% ; Weight 101.6 kg; Height 5 ft. tl4 10 in. ; Pain 0/10; 12/05 00:00 BP 132 / 73; Pulse 61; Resp 18; Pulse Ox 98% ; cp4 00:00 BP 123 / 62; Pulse 59; Resp 18; Pulse Ox 100% ; cp4 12/04 23:12 Body Mass Index 32.14 (101.60 kg, 177.8 cm) tl4 12/04 23:12 Pain Scale: Adult tl4 ED Course: 12/04 23:01 Patient arrived in ED. jj6 23:12 Kirk Adames MD is Attending Physician. ec2 23:14 Triage completed. tl4 23:16 Arm band placed on right wrist. tl4 23:47 Cate Russell is Primary Nurse. cp4 23:56 Bed in low position. Call light in reach. Side rails up X 1. Client placed on cp4 continuous cardiac and pulse oximetry monitoring. NIBP monitoring applied. threat monitoring analyst on. Pulse ox on. 23:56 No provider procedures requiring assistance completed. Initial lab(s) drawn, by me, cp4 sent to lab. Inserted saline lock: 20 gauge in right antecubital area, using aseptic technique. Blood collected. Flushed with 10 mL NS. Patient maintains SpO2 saturation greater than 95% on room air. 12/05 01:34 Provided Education on: palpitations. cp4 01:34 intact, bleeding controlled, No redness/swelling at site. Pressure dressing applied. cp4 Administered Medications: No medications were administered Medication: 12/04 23:56 VIS not applicable for this client. cp4 Outcome: 12/05 00:58 Discharge ordered by . ec2 01:34 Discharged to home ambulatory, cp4 01:34 Condition: stable 01:34 Discharge instructions given to patient, Instructed on discharge instructions, follow up and referral plans. Demonstrated understanding of instructions, follow-up care, 01:35 Patient left the ED. cp4 Signatures: AlfredoThais jj6 Kirk Adames MD MD ec2 Cate Russell cp4 Lyle Green RN RN tl4 Corrections: (The following items were deleted from the chart) 12/04 23:15 23:14 Allergies: drugs w/ sulfer; tl4 tl4
--- NOTE | 2023-12-06 00:59 | EDPHYS ---
Physician Documentation [facility] Name: Mahin Alonzo Age: 68 yrs Sex: Male : 1955 Arrival Date: 12/05/2023 Time: 23:00 Bed 20 Private MD: ED Physician Kirk Adames HPI: 12/04 23:19 This 68 yrs old Male presents to ER via Ambulatory with complaints of ec2 Irregular Pulse. 23:19 Patient arrives today for evaluation of palpitations. Patient reports that he has been ec2 feeling intermittent palpitations for the past couple days. Patient reports she has had bouts of this however this is more persistent. Patient reports no bouts of vomiting, has been having some loose stools recently. Does have a history of hypertension, hyperlipidemia, is on a diuretic.. Historical: - Allergies: 23:14 Motrin; tl4 23:14 Sulfa (Sulfonamide Antibiotics); tl4 - PMHx: 23:14 Gastric Reflux; Hyperlipidemia; Hypertension; knee pain; tl4 - PSHx: 23:14 back; Cholecystectomy; tl4 - Immunization history:: Adult Immunizations unknown. - Infectious Disease History:: Denies. - Social history:: Smoking status: Patient denies any tobacco usage or history of. ROS: 23:19 Constitutional: as per hpi ec2 Exam: 23:19 Constitutional: GEN: NAD Head: atraumatic Eyes: EOMI Ears: External ears are ec2 normal. CV: regular rate LUNGS: no respiratory distress ABD: non-distended SKIN: no evidence of rashes MSK: no evidence of trauma Vital Signs: 23:12 BP 157 / 79; Pulse 60; Resp 16; Temp 99.1; Pulse Ox 98% ; Weight 101.6 kg; Height 5 ft. tl4 10 in. ; Pain 0/10; 12/05 00:00 BP 132 / 73; Pulse 61; Resp 18; Pulse Ox 98% ; cp4 00:00 BP 123 / 62; Pulse 59; Resp 18; Pulse Ox 100% ; cp4 12/04 23:12 Body Mass Index 32.14 (101.60 kg, 177.8 cm) tl4 12/04 23:12 Pain Scale: Adult tl4 MDM: 12/04 23:12 Patient medically screened. ec2 23:19 Data reviewed: vital signs. ED course: Patient arrives today for palpitations. ec2 Examination remarkable for well-appearing nontoxic individuals otherwise in no acute distress with a reassuring examination. Will obtain lab work, EKG. Differential clues electrolyte disturbances, arrhythmia. Additionally I considered other processes such as ACS, PE.. 12/05 00:00 ED course: EKG independently reviewed and interpreted by me, shows normal sinus rhythm, ec2 rate of 63, no acute ST segment elevations, intervals are nonconcerning.. 00:58 ED course: Metabolic profile reassuring, CBC reassuring, INR within normal ranges, mag ec2 within normal ranges, troponin within normal ranges. Ultimately no evidence of arrhythmia here in the emergency department. I will have the patient follow-up with cardiology for possible Holter monitor evaluation. Return precautions given. . 12/04 23:19 Order name: Basic Metabolic Panel; Complete Time: 00:58 ec2 12/04 23:19 Order name: CBC with Diff; Complete Time: 00:58 ec2 12/04 23:19 Order name: Magnesium; Complete Time: 00:58 ec2 12/04 23:19 Order name: PT-INR; Complete Time: 00:58 ec2 12/04 23:19 Order name: Troponin HS; Complete Time: 00:58 ec2 12/04 23:19 Order name: EKG; Complete Time: 23:19 ec2 12/04 23:19 Order name: Cardiac monitoring; Complete Time: 23:55 ec2 12/04 23:19 Order name: EKG - Nurse/Tech; Complete Time: 23:55 ec2 12/04 23:19 Order name: IV Saline Lock; Complete Time: 23:55 ec2 12/04 23:19 Order name: Labs collected and sent; Complete Time: 23:55 ec2 12/04 23:19 Order name: O2 Per Protocol; Complete Time: 23:55 ec2 12/04 23:19 Order name: O2 Sat Monitoring; Complete Time: 23:55 ec2 Administered Medications: No medications were administered Disposition Summary: 12/06/23 00:58 Discharge Ordered Condition: Stable ec2 Diagnosis - Palpitations ec2 Followup: ec2 - With: Private Physician - When: - Reason: Re-evaluation by your physician Discharge Instructions: - Discharge Summary Sheet ec2 - Palpitations ec2 Forms: - Medication Reconciliation Form ec2 - Antibiotic Education ec2 - Prescription Opioid Use ec2 - Patient Portal Instructions ec2 - Leadership Thank You Letter ec2 Signatures: Dispatcher [employer] Kirk King MD MD ec2 Lyle Green RN RN tl4 Corrections: (The following items were deleted from the chart) 12/04 23:15 23:14 Allergies: drugs w/ sulfer; tl4 tl4
[2023-12-06 02:20] VITALS: TEMP 99.1
[2023-12-06 02:22] VITALS: BP 123/62; O2SAT 100
== END 2023-12-06 01:35 | disposition home or self-care (01) ==
LOC: ER 23:00
DX: R00.2 Palpitations (principal); I10 Essential (primary) hypertension; E78.5 Hyperlipidemia, unspecified
CPT/HCPCS: 36415; 80048; 83735; 84484; 85025; 85610; 99284

== ENCOUNTER 2025-01-29 07:34 | Emergency (ER) | payer OTHER ==
[2025-01-29 08:34] LABS: ALT/SGPT 43.0 U/L (16-61); Albumin 3.2 g/dL (3.4-5.0); Albumin/Globulin Ratio 0.8 (1.1-1.8); Alkaline Phosphatase 109.0 U/L (45-117); Anion Gap 8.9 mEq/L (5.0-15.0); BUN Blood Urea Nitrogen 13.0 mg/dL (7-18); Globulin 4.1 g/dL (2.3-3.5); Glucose Level 116.0 mg/dL (74-106); Lipase 29.0 U/L (13-75)
[2025-01-29 08:35] LABS: AST/SGOT 40.0 U/L (15-37); Potassium 3.9 mEq/L (3.5-5.1)
[2025-01-29 08:40] LABS: Absolute Lymphocytes (CBC) 1.5 K/uL (0.7-4.9); Hematocrit 35.9 % (39.6-49.0); Hemoglobin 12.4 g/dL (13.6-17.9); MCH 29.4 pg (27.0-35.0); MCHC 34.5 g/dL (32.0-36.0); MCV 85.0 fL (80-100); MPV 9.8 fL (7.6-11.3); Nucleated RBC Absolute Count 0.0 (0-0); Nucleated Red Blood Cells % 0.0 % (0-0); RBC Red Blood Cell Count 4.22 M/uL (4.33-5.43); White Blood Count 7.10 thou/uL (4.3-10.9)
[2025-01-29 09:32] LABS: Urine Microscopic Reflex YN NO UMIC
--- NOTE | 2025-01-29 09:37 | RAD REPORT ---
EXAMINATION: CT ABDOMEN AND PELVIS WITH CONTRAST CLINICAL INDICATION: right flank pain, hx of diverticulitis TECHNIQUE: CT abdomen and pelvis was performed, after the administration of IV contrast, [facility]. Axial, sagittal and coronal reconstructions were obtained. One or more of the following dose reduction techniques were used: Automated exposure control, adjustment of the mA and k V according to patient size, and iterative reconstruction. Unless otherwise specified, incidental findings do not require dedicated imaging follow-up. COMPARISON: 06/07/2022 FINDINGS: LOWER CHEST: The visualized lung bases are clear. LIVER: Normal in size and contour. No focal lesion. Cholecystectomy clips. SPLEEN: Normal size. No focal lesion. PANCREAS: No mass, ductal dilation, or blessing-pancreatic fluid. ADRENALS: Normal; no mass. KIDNEYS: Normal size and contour. No hydronephrosis. GASTROINTESTINAL TRACT: No evidence of free air, significant intra-abdominal free fluid, bowel obstru ction or abscess. APPENDIX: Normal appendix. LYMPH NODES: No lymphadenopathy. MUSCULOSKELETAL: Moderate multilevel lumbar degenerative changes. ADDITIONAL FINDINGS: Prominent prostate gland is seen projecting into the bladder base. IMPRESSION: No acute abnormalities seen in the abdomen or pelvis. Significant prostatomegaly.
--- NOTE | 2025-01-29 10:18 | ER ---
Nurse's Notes [facility] Name: Mahin Alonzo Age: 69 yrs Sex: Male : 1955 Arrival Date: 01/29/2025 Time: 07:34 Bed 5 Private MD: Diagnosis: Abdominal pain, unspecified Presentation: 01/29 07:48 Chief complaint:. Risk Assessment: Do you want to hurt yourself or someone else? iw Patient reports no desire to harm self or others. 07:48 Acuity: SAMEER 3 iw 07:49 Coronavirus screen: At this time, the client does not indicate any symptoms associated iw with coronavirus-19. Ebola Screen: No symptoms or risks identified at this time. Initial Sepsis Screen: Does the patient meet any 2 criteria? No. Patient's initial sepsis screen is negative. Does the patient have a suspected source of infection? No. Patient's initial sepsis screen is negative. Onset of symptoms was January 23, 2025. 07:49 Method Of Arrival: Ambulatory iw 07:51 Chief complaint: Patient states: has been on abx for diverticulitis since the beginning iw of the week , has been having RLQ pain radiating to right low back, pain in right side is worse , had MRI of pelvis yesterday. Historical: - Allergies: 07:50 Motrin; iw 07:50 Sulfa (Sulfonamide Antibiotics); iw - PMHx: 07:50 Gastric Reflux; Hyperlipidemia; Hypertension; knee pain; Diverticulitis; iw - PSHx: 07:50 Cholecystectomy; back; colon resection; iw - Family history:: not pertinent. - Hospitalizations: : No recent hospitalization is reported. Screenin:[address] [facility] ED Fall Risk Assessment (Adult) History of falling in the last 3 months, iw including since admission No falls in past 3 months (0 pts) Confusion or Disorientation No (0 pts) Intoxicated or Sedated No (0 pts) Impaired Gait No (0 pts) Mobility Assist Device Used No (0 pt) Altered Elimination No (0 pt) Score/Fall Risk Level 0 - 2 = Low Risk Oriented to surroundings, Maintained a safe environment. Abuse screen: Denies threats or abuse. Nutritional screening: No deficits noted. Tuberculosis screening: No symptoms or risk factors identified. Assessment: 08:09 General: Appears in no apparent distress. Behavior is calm, cooperative. Pain: iw Complains of pain in anterior aspect of right lateral abdomen and posterior aspect of right lateral abdomen Pain currently is 7 out of 10 on a pain scale. Neuro: Level of Consciousness is awake, alert, obeys commands, Oriented to person, place, time, situation, Moves all extremities. Weakness. Cardiovascular: Patient's skin is warm and dry. Respiratory: Respiratory effort is even, unlabored, Respiratory pattern is regular, symmetrical. GI: Abdomen is non-distended, Reports lower abdominal pain, nausea. Derm: Skin is intact, is fragile. Musculoskeletal: Range of motion: intact in all extremities. Vital Signs: 07:49 BP 160 / 80; Pulse 68; Resp 18; Pulse Ox 99% on R/A; Weight 97.07 kg; Height 5 ft. 10 iw in. ; Pain 7/10; 09:45 BP 134 / 67; Pulse 53; Resp 18; Pulse Ox 100% on R/A; af3 10:20 BP 108 / 71; Pulse 57; Resp 18; Pulse Ox 100% on R/A; af3 07:49 Body Mass Index 30.71 (97.07 kg, 177.8 cm) iw 07:49 Pain Scale: Adult iw ED Course: 07:36 Patient arrived in ED. ts1 07:37 Brian Momin MD is Attending Physician. rn 07:48 Valery Griffith, STEPHANIE is Primary Nurse. iw 07:49 Triage completed. iw 08:09 Initial lab(s) drawn, by tx, sent to lab. Inserted saline lock: 20 gauge in left iw antecubital area, using aseptic technique. Blood collected. Flushed with 10 mL NS. 09:04 CT Abd/Pelvis - IV Contrast Only In Process Unspecified. EDMS 09:27 Urine collected: clean catch specimen, clear. ph 09:28 Arm band placed on. ph 09:28 Patient has correct armband on for positive identification. Bed in low position. Call ph light in reach. Side rails up X 1. Pulse ox on. NIBP on. Door closed. Noise minimized. Warm blanket given. 10:16 Nini Velasquez MD is Referral Physician. rn 10:28 No provider procedures requiring assistance completed. IV discontinued, intact, iw bleeding controlled, No redness/swelling at site. Pressure dressing applied. Administered Medications: No medications were administered Medication: 09:49 VIS not applicable for this client. iw Outcome: 10:17 Discharge ordered by . rn 10:29 Discharged to home ambulatory, iw 10: Condition: good 10:29 Discharge instructions given to patient, Instructed on discharge instructions, follow up and referral plans. Demonstrated understanding of instructions, follow-up care, 10:29 Patient left the ED. iw Signatures: Dispatcher [employer] Valery Mason RN RN iw Brian Momin MD MD rn Hall, Patricia, RN RN Eva Prakash, EMILY PAS ts1 KamaraRosalina RN RN af3
--- NOTE | 2025-01-29 10:18 | EDPHYS ---
Physician Documentation [facility] Name: Mahin Alonzo Age: 69 yrs Sex: Male : 1955 Arrival Date: 01/29/2025 Time: 07:34 Bed 5 Private MD: ED Physician Brian Momin HPI: 01/29 09:02 This 69 yrs old Male presents to ER via Ambulatory with complaints of General Weakness, rn flank pain. 09:02 Patient reports right sided flank pain. Is being treated for diverticulitis by Dr. kyle Velasquez, started antibiotics on Friday. No fever or chills. Good appetite. No vomiting. Has history of kidney stones but states this does not feel like a kidney stone.. Historical: - Allergies: 07:50 Motrin; iw 07:50 Sulfa (Sulfonamide Antibiotics); iw - PMHx: 07:50 Gastric Reflux; Hyperlipidemia; Hypertension; knee pain; Diverticulitis; iw - PSHx: 07:50 Cholecystectomy; back; colon resection; iw - Family history:: not pertinent. - Hospitalizations: : No recent hospitalization is reported. ROS: 09:02 Constitutional: Negative for fever, chills, and weight loss, Cardiovascular: Negative rn for chest pain, palpitations, and edema, Respiratory: Negative for shortness of breath, cough, wheezing, and pleuritic chest pain, Abdomen/GI: Positive for right sided abdominal and flank pain MS/Extremity: Negative for injury and deformity, Neuro: Negative for headache, weakness, numbness, tingling, and seizure, Exam: 09:02 Constitutional: This is a well developed, well nourished patient who is awake, alert, rn and in no acute distress. Ambulatory to room without assistance or difficulty Cardiovascular: Regular rate and rhythm. No pulse deficits. Respiratory: No increased work of breathing, no retractions or nasal flaring. Abdomen/GI: Soft, mild right sided abdominal tenderness and flank tenderness. Back: No spinal tenderness. No costovertebral tenderness. Full range of motion. MS/ Extremity: Pulses equal, no cyanosis. Neurovascular intact. Full, normal range of motion. Equal circumference. Neuro: Awake and alert, GCS 15 Vital Signs: 07:49 BP 160 / 80; Pulse 68; Resp 18; Pulse Ox 99% on R/A; Weight 97.07 kg; Height 5 ft. 10 iw in. ; Pain 7/10; 09:45 BP 134 / 67; Pulse 53; Resp 18; Pulse Ox 100% on R/A; af3 10:20 BP 108 / 71; Pulse 57; Resp 18; Pulse Ox 100% on R/A; af3 07:49 Body Mass Index 30.71 (97.07 kg, 177.8 cm) iw 07:49 Pain Scale: Adult iw MDM: 07:37 Medical Screening Exam initiated rn 10:14 Differential diagnosis: arthritis, Perforated Ulcer Ureterolithiasis Diverticulitis, rn perforated diverticulitis, enteritis, colitis. Data reviewed: vital signs, nurses notes, lab test result(s), radiologic studies, CT scan. Consideration of Admission/Observation Escalation of care including admission/observation considered. Escalation considered given outpatient treatment for diverticulitis and worsening pain but workup negative and no indication for admission found.. Management of patient was discussed with the following: Primary Care Provider: Discussed lab work and CT results with Dr. Velasquez, states okay to discharge home with follow-up this week.. Independent interpretation of the following test(s) in the Emergency Department CT Scan: My interpretation is CT abdomen pelvis images negative for pneumoperitoneum per my interpretation. Care significantly affected by the following chronic conditions: Hypertension, Recurrent diverticulitis. Counseling: I had a detailed discussion with the patient and/or guardian regarding the historical points, exam findings, and any diagnostic results supporting the discharge/admit diagnosis, lab results, radiology results, the need for outpatient follow up, to return to the emergency department if symptoms worsen or persist or if there are any questions or concerns that arise at home. Special discussion: Based on the patient's Hx, exam, and Dx evaluation, there is no indication for emergent surgery or inpatient Tx. It is understood by the patient/guardian that if the Sx's persist or worsen they need to return immediately for re-evaluation. I discussed with the patient/guardian in detail that at this point there is no indication for admission to the hospital. It is understood, however, that if the symptoms persist or worsen the patient needs to return immediately for re-evaluation. 10:17 ED course: Patient declines prescription medication for pain. rn 01/29 07:50 Order name: CBC with Diff; Complete Time: 08:44 rn 01/29 07:50 Order name: CMP; Complete Time: 08:44 rn 01/29 07:50 Order name: Lipase; Complete Time: 08:44 rn 01/29 07:50 Order name: UA Rfx Nicolas Cult if indicated rn 01/29 07:50 Order name: CT Abd/Pelvis - IV Contrast Only; Complete Time: 09:50 rn 01/29 07:50 Order name: IV Saline Lock; Complete Time: 08:09 rn 01/29 07:50 Order name: Labs collected and sent; Complete Time: 08:09 rn Administered Medications: No medications were administered Disposition Summary: 01/29/25 10:17 Discharge Ordered Notes: Location: Home rn Problem: new rn Symptoms: have improved rn Condition: Stable rn Diagnosis - Abdominal pain, unspecified rn Followup: rn - With: Nini Velasquez MD - When: 2 - 3 days - Reason: Recheck today's complaints, Re-evaluation by your physician Discharge Instructions: - Discharge Summary Sheet rn - Abdominal Pain, Adult rn Forms: - Medication Reconciliation Form rn - Antibiotic rn infusion - Prescription Opioid Use rn - Patient Portal Instructions rn - Leadership Thank You Letter rn Signatures: Dispatcher [employer] Valery Mason, RN RN Brian Marcum MD MD staff development coordinator rn: (The following items were deleted from the chart) 07:50 07:50 CBC+H.LAB.BRZ ordered. EDMS EDMS 07:50 07:50 COMPREHENSIVE METABOLIC PANEL+C.LAB.BRZ ordered. EDMS EDMS 07:50 07:50 LIPASE+C.LAB.BRZ ordered. EDMS EDMS 07:50 07:50 UA Rfx Nicolas Cult if indicated+U.LAB.BRZ ordered. EDMS EDMS 07:51 07:51 Abdomen Pelvis W Con+CT.RAD.BRZ ordered. EDMS EDMS
[2025-01-29 11:34] VITALS: O2SAT 100
[2025-01-29 11:52] VITALS: BP 108/71
== END 2025-01-29 10:29 | disposition home or self-care (01) ==
LOC: ER 07:34
DX: R10.31 Right lower quadrant pain (principal); R53.1 Weakness; Z87.442 Personal history of urinary calculi
CPT/HCPCS: 85025; 36415; 81003; 83690; 80053; 74177; 99284; Q9967